=== PATIENT | female | born 1960 | race Caucasian/White ===

== ENCOUNTER 2022-12-06 14:38 | Outpatient (REF) | payer MEDICARE, MEDICAID, SELFPAY ==
--- NOTE | ~2022-12-06 | XR_ITS ---
EXAMINATION: XR HIP, LEFT XR HAND AND WRIST, BILATERAL XR FOOT, BILATERAL XR ANKLE, BILATERAL CLINICAL INFORMATION: Rheumatoid arthritis. COMPARISON: None available. TECHNIQUE: 2 views left hip, 4 views right and left hand and wrist, 3 views of right and left feet, and 2 views of right and left ankles. FINDINGS: LEFT HIP: There is no evidence of acute fracture or dislocation of the left hip. There is significant loss of left hip joint space in a concentric manner with sclerosis and subchondral cyst formation. No femoral head deformity is seen. There is prominent collar spurring present. There is spurring involving the greater trochanter. Prominent vascular calcifications are noted. Subchondral cysts are seen involving the pubic symphysis. RIGHT FOOT: There is no evidence of acute fracture or dislocation of the right foot. There appears be osteopenia present. There is mild bunion formation with joint space narrowing seen 1st metatarsophalangeal joint. There appear to be small erosions involving the heads of the 2nd through 5th metatarsals. There appear to be erosions involving the base of the 2nd metatarsal. There is some degenerative narrowing with minor spurring seen involving the tarsal navicular joint and tarsal metatarsal joints. Dorsal beaking is seen involving the tarsal bones. Prominent plantar calcaneal spur present. RIGHT ANKLE: There is osteopenia present. No acute fracture or dislocation. Ankle mortise appears intact with talar tilt of approximately 8 degrees. No definite erosive changes are appreciated. Left ankle: There is no evidence of acute fracture or dislocation of the left ankle. Left ankle mortise appears intact. LEFT FOOT: There is generalized osteopenia present. There is severe degenerative change of the 1st metatarsophalangeal joint with loss of joint space and articular irregularity and deformity. Subchondral cyst formation is evident with prominent spurring. There are some erosions seen involving the 2nd through 5th metatarsal heads. There is some degenerative change seen involving the metatarsophalangeal joints 1st through 3rd digits. Prominent plantar spur present. Dorsal beaking of the talar bone is noted. RIGHT HAND AND WRIST: There is diffuse osteopenia present most prominent in the periarticular regions but generalized. There is narrowing of the triscaphe joint with severe narrowing of the 1st and 2nd carpometacarpal joints with loss of joint space, sclerosis, subchondral cyst formation, and prominent spurring. There is deformity of the multangulars. There appear to be small erosions versus subchondral cysts involving the heads of the metacarpal bones. There is some degenerative joint space narrowing with marginal irregularity involving the 2nd metatarsophalangeal joint. There is degenerative change seen with some joint space narrowing and spurring about the distal interphalangeal joints 2nd to the largest extent. There is some mild soft tissue prominence about the first and second metacarpophalangeal joints. LEFT HAND AND WRIST: There is generalized osteopenia. There is severe degenerative change of the 1st carpometacarpal joint with loss of joint space and marginal spurring and some deformity of the multangulars. There is loss of the triscaphe joint space. No acute fracture or dislocation is evident. There is some degenerative change with joint space narrowing involving the 1st metacarpophalangeal joint. There is degenerative narrowing and sclerosis involving the 2nd distal interphalangeal joint. There are some erosions seen involving the 2nd and 5th metacarpal heads. There is degenerative change seen involving the 5th proximal interphalangeal joint. There is some mild soft tissue prominence seen about the second metacarpophalangeal joint. XR/XR ankle LT min 3V IMPRESSION: Diffuse osteopenia. Severe degenerative change of the left hip joint in a concentric fashion, as described, which is consistent with the appearance of rheumatoid arthritis rather than osteoarthritis which tends to be more focal regions of the joint space. Combination of findings of erosive and degenerative arthritides, as described.
[2022-12-06 17:06] LABS: Basophils Absolute Auto 0.1 X10*3/uL (0.0-0.2); Basophils Percent Auto 0.6 % (0-2); Eosinophils Absolute Auto 0.1 X10*3/uL (0.0-0.4); Eosinophils Percent Auto 0.9 % (0-4); Hemoglobin 14.6 g/dl (12.0-16.0); Imm Gran Abs Auto 0.03 X10*3/uL (0.00-0.03); Imm Gran Pct Auto 0.3 % (0.0-0.4); Lymphocytes Absolute Auto 2.6 X10*3/uL (1.2-4.9); Lymphocytes Percent Auto 25.9 % (20-40); MANUAL DIFF FLAG NO; Mean Corpuscular Hemoglobin 31.2 pg (27.0-33.0); Mean Corpuscular Volume 91.9 fL (80.0-98.0); Mean Platelet Volume 8.6 fL (9.4-12.3); Monocytes Absolute Auto 0.6 X10*3/uL (0.1-1.2); Monocytes Percent Auto 5.7 % (2-11); Neutrophils Absolute Auto 6.7 x10*3/uL (2.0-8.3); Neutrophils Percent Auto 66.6 % (45-73); Platelet Count 381 X10*3/uL (160-400); Red Blood Count 4.68 X10*6/uL (4.20-5.50); Red Cell Distribution Width 13.9 % (11.0-16.0)
[2022-12-06 18:05] LABS: Erythrocyte Sedimentation Rate 12 MM/HR (0-20)
[2022-12-06 18:12] LABS: Alanine Aminotransferase 15 U/L (0-31); Albumin Level 4.5 g/dL (3.5-5.0); Alkaline Phosphatase 119 U/L (39-117); Anion Gap 13 (12-20); Aspartate Amino Transferase 15 U/L (5-31); Bilirubin Total 0.4 mg/dL (0.0-1.0); Blood Urea Nitrogen 16 mg/dL (9-16); C Reactive Protein 0.32 mg/dL (< or = 0.50); Calcium 10.1 mg/dL (8.4-10.2); Carbon Dioxide 26 mmol/L (22-29); Chloride 104 mmol/L (96-108); Estimated Glomerular Filt Rate > 60; Glucose Random 103 mg/dL (60-115); Potassium 4.2 mmol/L (3.3-5.1); Rheumatoid Factor < 13.0 IU/mL (<15.0); Sodium 139 mmol/L (135-145); Total Protein 7.4 g/dL (6.5-8.0); Uric Acid 4.7 mg/dL (2.4-5.7)
[2022-12-07 07:39] LABS: HBS Num1 11.65 mIU/mL (0-7.99); HBc Num1 0.06 S/CO (0.00-0.79); Hepatitis A Antibody IgM 0.24 Index (0-0.79); Hepatitis B Core Antibody Nonreactive (Nonreactive); Hepatitis B Surface Antigen Negative (Negative); ~HepC Num1 0.08 S/CO (0.00-0.79); ~Hepatitis A Antibody IgM Nonreactive (Nonreactive); ~Hepatitis C Antibody Nonreactive (Nonreactive)
[2022-12-07 08:54] LABS: HBS Num2 12.24 mIU/mL (0-7.99); HBS Num3 12.42 mIU/mL (0-7.99); ~Hepatitis B Surface Antibody REACTIVE (Nonreactive)
[2022-12-08 11:18] LABS: TS Negative Control Passed; TS Panel A 0; TS Panel B 0; TS Positive Control Passed; TSpotTB Negative (Negative)
[2022-12-11 12:23] LABS: Cyclic Citrullinated Peptide <16 UNITS
[2022-12-14 00:38] LABS: Prot Elec - Albumin 4.6 g/dL (3.8-4.8); Prot Elec - Alpha1 0.3 g/dL (0.2-0.3); Prot Elec - Alpha2 0.9 g/dL (0.5-0.9); Prot Elec - Beta 1 0.4 g/dL (0.4-0.6); Prot Elec - Beta 2 0.3 g/dL (0.2-0.5); Prot Elec - Gamma 1.1 g/dL (0.8-1.7); Prot Elec - Total Protein 7.5 g/dL (6.1-8.1)
[2022-12-15 12:24] LABS: IgA 170 mg/dL (70-320); IgG 1127 mg/dL (600-1540); IgM 117 mg/dL (50-300)
[2022-12-18 11:19] LABS: Anti Nuclear Antibody Screen NEGATIVE (NEGATIVE)
== END 2022-12-06 14:39 | disposition home or self-care (01) ==
LOC: HO.LAB 14:38
PROVIDERS: Visit Provider Student in an Organized Health Care Education/Training Program
DX: Z11.59 Encounter for screening for other viral diseases (principal); Z11.7 Encounter for testing for latent tuberculosis infection; M25.541 Pain in joints of right hand; M06.09 Rheumatoid arthritis without rheumatoid factor, multiple sites; Z72.89 Other problems related to lifestyle
CPT/HCPCS: 36415; 73110; 73130; 73502; 73610; 73630; 80053; 82784; 84165; 84550; 85025; 85652; 86038; 86140; 86200; 86334; 86431; 86481; 86704; 86706; 86709; 86803; 87340; 99202

== ENCOUNTER 2023-02-23 16:07 | Outpatient (AMB) | payer MEDICARE, MEDICAID, SELFPAY ==
[2023-02-23 16:10] VITALS: BP 132/80; PULSE 106; TEMP 36.6; O2SAT 96; BMI 33.9
--- NOTE | 2023-02-23 16:10 | MHC.OFFVIS ---
Intake Vital Signs 02/23/23 16:10 Height 5 ft Weight 173 lb 11.588 oz BMI 33.9 BP 132/80 Blood Pressure Location Rt brachial Position Sitting Pulse 106 H Pulse Source Pulse Oximeter Temp 97.8 F Temp Source Skin Pulse Oximetry (%) 96 Intake Visit Reasons: RA Intake Note: Pt seen today for RA follow up. 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 Accompanied by: Self / Same As Patient Allergies ciprofloxacin [From Cipro] Adverse Reaction (Unknown, Verified 02/23/23 16:17) Rash hydroxychloroquine Adverse Reaction (Unknown, Verified 02/23/23 16:17) Rash Medication List - Last Reconciled 02/23/23 by Fernando Hernandez MD amlodipine 10 mg PO DAILY chlorthalidone 12.5 mg PO QAM diclofenac sodium 1% 1 ea topical QID epinephrine 0.3 mL IM ONCE PRN fluticasone propionate 50 mcg/actuation sprays intranasal folic acid 1 mg PO DAILY lisinopril 40 mg PO DAILY methotrexate sodium Take 6 tabs by mouth once weekly for 2 weeks then 8 tabs once weekly HPI HPI Comments History of Present Illness Details Patient returns for follow-up after completion of her blood work and x-rays. States that she does not have any swollen joints today. States that her left hip is what is holding her back the most. 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 Patient stated that since 2004 she has had right hip pain. She ultimately had a right hip replacement 2008. Over the years patient has had intermittent joint pain and swelling including elbow, hands, knuckles, wrists, ankles, feet, left hip. She states that is her most bothersome pain at this point is left hip pain and stiffness. The pain and stiffness last all day. Also last week she had swelling of her left elbow that lasted about a month then self-resolved. She also had pain and swelling of her hands and knuckles that lasted a few days then self-resolved. Patient takes acetaminophen which provides little relief. She is unaware of any family history of autoimmune rheumatic disease. There is no history of DVT/PE. 2-3 years ago patient was evaluated by hair weaver Dr. Dee drake and was started on hydroxychloroquine. Patient took it for 2 weeks but developed severe hives and stopped it [facility] Medical History (Updated 02/23/23 @ 16:53 by Fernando Hernandez MD) Diverticular disease Essential hypertension Fibromyalgia GERD (gastroesophageal reflux disease) Hyperlipidemia Osteoarthritis Prediabetes Surgical History History of surgery on lower extremity Status post total hip replacement, right Family History Mother Myocardial infarction Hypertension Stroke Brother Emphysema lung Father Heart disease S/P CABG x 3 Arthritis Brother Heart disease Social History Alcohol intake: current Alcohol intake frequency: does not drink Patient Tobacco Use Status: Current someday Tobacco user Substance Use Type: Marijuana Current occupational status: retired 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 Review of Systems Eyes Reports dry eyes, Reports itchy eyes and Reports eye pain ENT Reports dry mouth and Reports hoarseness Musc Reports arthralgias and Reports stiffness Aller/Immun Reports itchy eyes Physical Exam Vital Signs: Last Vital Signs Temp 97.8 F 02/23/23 16:10 Pulse 106 H 02/23/23 16:10 BP 132/80 02/23/23 16:10 Pulse Ox 96 02/23/23 16:10 BMI result Body Mass Index 33.9 Const General: cooperative, healthy appearing and comfortable Nutritional Appearance: obese Orientation/consciousness: patient oriented x3 Limitations: no limitations HEENT Head: Yes normocephalic and Yes atraumatic Face and sinus: Yes dry mucous membranes Resp Effort & Inspection: normal respiratory effort and able to speak in complete sentences Cardio Rate: regular rate GI Inspection: No distended Palpation (GI): Soft to palpation and nontender Neuro General: patient oriented x3 Extrem Other: Osteoarthritic changes of both hands with Heberden's and Jewels's nodes Bilateral 1st CMC joint squaring No swollen or tender joints today in both hands today Bilateral 1st CMC joint tenderness Some subluxation of left 1st CMC joint Normal nailfold capillaroscopy Bilateral elbow pain with full extension Normal range of motion of both shoulders Left hip pain with flexion adduction and internal rotation Bilateral knee pain with full flexion No swollen or tender MTPs bilaterally Results Reviewed Results Reviewed: [address] [address] XRay Report Signed Patient: Angeline Wilks MR#: [id number] : 1960 Acct:[id number] Age/Sex: 62 / F ADM Date: 12/06/22 Loc: HO.LAB Attending Dr: Fernando Hernandez MD Ordering Physician: Fernando Hernandez MD Date of Service: 12/06/22 Procedure(s): XR hip LT min 2V Accession Number(s): [id number] cc: Fernando Hernandez MD~ EXAMINATION: XR HIP, LEFT XR HAND AND WRIST, BILATERAL XR FOOT, BILATERAL XR ANKLE, BILATERAL CLINICAL INFORMATION: Rheumatoid arthritis. COMPARISON: None available. TECHNIQUE: 2 views left hip, 4 views right and left hand and wrist, 3 views of right and left feet, and 2 views of right and left ankles. FINDINGS: LEFT HIP: There is no evidence of acute fracture or dislocation of the left hip. There is significant loss of left hip joint space in a concentric manner with sclerosis and subchondral cyst formation. No femoral head deformity is seen. There is prominent collar spurring present. There is spurring involving the greater trochanter. Prominent vascular calcifications are noted. Subchondral cysts are seen involving the pubic symphysis. RIGHT FOOT: There is no evidence of acute fracture or dislocation of the right foot. There appears be osteopenia present. There is mild bunion formation with joint space narrowing seen 1st metatarsophalangeal joint. There appear to be small erosions involving the heads of the 2nd through 5th metatarsals. There appear to be erosions involving the base of the 2nd metatarsal. There is some degenerative narrowing with minor spurring seen involving the tarsal navicular joint and tarsal metatarsal joints. Dorsal beaking is seen involving the tarsal bones. Prominent plantar calcaneal spur present. RIGHT ANKLE: There is osteopenia present. No acute fracture or dislocation. Ankle mortise appears intact with talar tilt of approximately 8 degrees. No definite erosive changes are appreciated. Left ankle: There is no evidence of acute fracture or dislocation of the left ankle. Left ankle mortise appears intact. LEFT FOOT: There is generalized osteopenia present. There is severe degenerative change of the 1st metatarsophalangeal joint with loss of joint space and articular irregularity and deformity. Subchondral cyst formation is evident with prominent spurring. There are some erosions seen involving the 2nd through 5th metatarsal heads. There is some degenerative change seen involving the metatarsophalangeal joints 1st through 3rd digits. Prominent plantar spur present. Dorsal beaking of the talar bone is noted. RIGHT HAND AND WRIST: There is diffuse osteopenia present most prominent in the periarticular regions but generalized. There is narrowing of the triscaphe joint with severe narrowing of the 1st and 2nd carpometacarpal joints with loss of joint space, sclerosis, subchondral cyst formation, and prominent spurring. There is deformity of the multangulars. There appear to be small erosions versus subchondral cysts involving the heads of the metacarpal bones. There is some degenerative joint space narrowing with marginal irregularity involving the 2nd metatarsophalangeal joint. There is degenerative change seen with some joint space narrowing and spurring about the distal interphalangeal joints 2nd to the largest extent. There is some mild soft tissue prominence about the first and second metacarpophalangeal joints. LEFT HAND AND WRIST: There is generalized osteopenia. There is severe degenerative change of the 1st carpometacarpal joint with loss of joint space and marginal spurring and some deformity of the multangulars. There is loss of the triscaphe joint space. No acute fracture or dislocation is evident. There is some degenerative change with joint space narrowing involving the 1st metacarpophalangeal joint. There is degenerative narrowing and sclerosis involving the 2nd distal interphalangeal joint. There are some erosions seen involving the 2nd and 5th metacarpal heads. There is degenerative change seen involving the 5th proximal interphalangeal joint. There is some mild soft tissue prominence seen about the second metacarpophalangeal joint. XR/XR hip LT min 2V IMPRESSION: Diffuse osteopenia. ? Severe degenerative change of the left hip joint in a concentric fashion, as described, which is consistent with the appearance of rheumatoid arthritis rather than osteoarthritis which tends to be more focal regions of the joint space. ? Combination of findings of erosive and degenerative arthritides, as described. Assessment & Plan Assessment & Plan (1) Seronegative rheumatoid arthritis: Code(s): M06.00 - Rheumatoid arthritis without rheumatoid factor, unspecified site Plan: This is a 62-year-old female who presents for evaluation of multiple joint pain.? Last visit patient had a few swollen and tender joints.? Her radiographs show significant degenerative changes and some findings suggestive of an inflammatory arthropathy.? Patient was diagnosed with seronegative rheumatoid arthritis a few years ago by Dr. Buitrago and was started on hydroxychloroquine but patient had the allergic reaction to it. Will need to start DMARDs.? Discussed risks and benefits of methotrexate.? Patient agreed to proceed.? Start methotrexate 15 mg once weekly for 2 weeks then 8 tabs once weekly plus folic acid 1 mg daily Labs before next visit in 2 months Infectious screening :? Hepatitis panel and T spot -ve 2022 (2) Osteopenia: Code(s): M85.80 - Other specified disorders of bone density and structure, unspecified site Plan: X-rays showing diffuse osteopenia. Patient is 62 years old and states that she has lost around 3.5 inches of height over her lifetime. Ordered a DEXA scan to screen for osteoporosis (3) Osteoarthritis of left hip: Code(s): M16.12 - Unilateral primary osteoarthritis, left hip Qualifiers: Osteoarthritis type: other secondary Qualified Code(s): M16.7 - Other unilateral secondary osteoarthritis of hip Plan: Referred to Orthopedics to evaluate for possible hip replacement Plan I spent 26 minutes reviewing patient's chart, evaluating patient, ordering diagnostic workup, counseling patient and documenting in the chart Orders: Orders Complete Blood Count Auto Diff 2 Months M06.9 - Rheumatoid arthritis, unspecified Comprehensive Met. Panel 2 Months M06.9 - Rheumatoid arthritis, unspecified C Reactive Protein 2 Months M06.9 - Rheumatoid arthritis, unspecified Erythrocyte Sedimentation Rate 2 Months M06.9 - Rheumatoid arthritis, unspecified XR DEXA axial skeleton Today M16.12 - Unilateral primary osteoarthritis, left hip Referrals Orthopedics Referral M16.12 - Unilateral primary osteoarthritis, left hip Medications: New methotrexate sodium Take 6 tabs by mouth once weekly for 2 weeks then 8 tabs once weekly 64 tabs 0RF folic acid 1 mg PO DAILY 90 tabs 1RF Coding Level of Care Code Est Pt Level 4 (32302) Diagnoses Seronegative rheumatoid arthritis M06.00 Osteopenia M85.80 Osteoarthritis of left hip M16.7 Osteoarthritis type: other secondary
== END 2023-02-23 16:41 | disposition home or self-care (01) ==
PROVIDERS: PCP Nurse Practitioner Family; Visit Provider Student in an Organized Health Care Education/Training Program
DX: M06.00 Rheumatoid arthritis without rheumatoid factor, unspecified site (principal); M85.80 Other specified disorders of bone density and structure, unspecified site; M16.7 Other unilateral secondary osteoarthritis of hip
CPT/HCPCS: 99214

== ENCOUNTER → 2023-02-23 16:07 | Outpatient (BNVA) | payer MEDICARE, MEDICAID, SELFPAY | PROVIDERS: Visit Provider Student in an Organized Health Care Education/Training Program | DX: M06.00 Rheumatoid arthritis without rheumatoid factor, unspecified site (principal); M85.80 Other specified disorders of bone density and structure, unspecified site; M16.7 Other unilateral secondary osteoarthritis of hip | CPT/HCPCS: 99212 ==

== ENCOUNTER 2023-03-01 09:58 | Outpatient (AMB) | payer MEDICARE, MEDICAID, SELFPAY ==
--- NOTE | 2023-03-01 10:00 | A.OFFVIS_ITS ---
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 Patient reports ongoing pain for 3 years. Hx of right hip replacement 2008. She reports minimal discomfort in her right hip. She describes her left hip pain as sharp and severe in nature, 10/10. Her left hip pain has gotten worse over the last few years in spite of continued non operative treatments. She has done physical therapy for 12 weeks over the last 6 months which aggravated her pain. She has also tried Tylenol and and anti- inflammatory medicines which gave her minimal relief. The patient has difficulty walking even short distances because of her pain. At this point her left hip pain is interfering with her activities of daily living and her ability to sleep well through the night. Allergies ciprofloxacin [From Cipro] Adverse Reaction (Unknown, Verified 03/01/23 10:04) Rash hydroxychloroquine Adverse Reaction (Unknown, Verified 03/01/23 10:04) Rash PFSH Medical History Diverticular disease Essential hypertension Fibromyalgia GERD (gastroesophageal reflux disease) Hyperlipidemia Osteoarthritis Prediabetes Surgical History History of surgery on lower extremity Status post total hip replacement, right Family History Mother Myocardial infarction Hypertension Stroke Brother Emphysema lung Father Heart disease S/P CABG x 3 Arthritis Brother Heart disease Social History Alcohol intake: current Alcohol intake frequency: does not drink Patient Tobacco Use Status: Current someday Tobacco user Substance Use Type: Marijuana Current occupational status: retired 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 Physical Exam Const Other: Well-nourished well-developed very friendly female awake alert and oriented x3 in no acute distress Extrem Other: Bilateral lower extremity examination shows good capillary refill, no skin lesions noted, normal sensation light touch Left hip examination shows decreased range of motion when compared to her right hip, pain with range of motion, no tenderness over bursa Results Reviewed Results Reviewed: X-rays of the patient's left hip show severe joint space narrowing with grade 4 [id number] arthritis, subchondral sclerosis, osteophyte formation, no acute bony abnormalities Assessment & Plan Assessment & Plan (1) Osteoarthritis of left hip: Code(s): M16.12 - Unilateral primary osteoarthritis, left hip Qualifiers: Osteoarthritis type: other secondary Qualified Code(s): M16.7 - Other unilateral secondary osteoarthritis of hip Plan: Ms. Wilks presents with progressively worsening left hip pain due to end-stage degenerative joint disease. I had a lengthy discussion with the patient regarding the treatment options. At this point she has failed continued non operative treatments. The risks and benefits of left total hip replacement surgery were discussed at length with the patient. We had a discussion regarding implant in bearing options. We had a detailed discussion of the advantages and limitations of the specific implant designs, materials and bearing surfaces. All questions were answered to the patient's satisfaction. The patient wishes to proceed with surgery. Because the patient's symptoms are severe and intractable we will schedule surgery for as soon as possible. Coronavirus precautions will be taken. The patient will contact my office to pick a surgery date. She will follow-up as instructed. Feel free to call me at any time should questions regarding her orthopedic management arise. I spent 23 minutes in reviewing the patient's records and imaging studies, seeing the patient and documenting in the medical record. Orders: Orders XR pelvis 1-2V Today M16.12 - Unilateral primary osteoarthritis, left hip Coding Level of Care Code New Pt Level 2 (23563) Diagnoses Osteoarthritis of left hip M16.7 Osteoarthritis type: other secondary
== END 2023-03-01 10:39 | disposition home or self-care (01) ==
PROVIDERS: PCP Internal Medicine; Visit Provider Orthopaedic Surgery
DX: M16.7 Other unilateral secondary osteoarthritis of hip (principal)
CPT/HCPCS: 99202

== ENCOUNTER 2023-03-01 09:58 | Outpatient (REF) | payer MEDICARE, MEDICAID, SELFPAY ==
--- NOTE | ~2023-03-01 | XR_ITS ---
EXAMINATION: XR PELVIS CLINICAL INFORMATION: Unilateral primary osteoarthritis, left hip COMPARISON: 12/06/2022. TECHNIQUE: AP view of the pelvis. FINDINGS: No evidence for acute fracture or dislocation. The acetabular and pubic margins are intact. A right hip prosthesis is in position without any distinct complication. There is severe joint space narrowing of the left hip with subchondral sclerosis and spurring. Spurring change of the inferomedial left femoral head as well as the greater trochanteric regions again observed. There appears to be stable osseous alignment since the previous evaluation. Sacrum is intact. There appear to be subchondral cysts at the pubic symphysis, unchanged. XR/XR pelvis 1-2V IMPRESSION: 1. Degenerative changes of the left hip as noted above. 2. Right hip prosthesis in position. 3. No acute fracture or dislocation.
== END 2023-03-01 09:59 | disposition home or self-care (01) ==
LOC: HO.HOSX 09:58
PROVIDERS: Visit Provider Orthopaedic Surgery
DX: M16.12 Unilateral primary osteoarthritis, left hip (principal)
CPT/HCPCS: 72170; 99202

== ENCOUNTER 2023-03-17 10:51 | Outpatient (REF) | payer MEDICARE, MEDICAID, SELFPAY ==
--- NOTE | ~2023-03-17 | MM_ITS ---
EXAMINATION: BONE DENSITOMETRY CLINICAL INDICATION: Unilateral primary osteoarthritis, left hip. COMPARISON: This is the patient's baseline examination. TECHNIQUE: Using a [employer] DXA System (software version: 13.1) manufactured by [employer], dual-energy x-ray absorptiometry was performed of the lumbar spine and left hip. The images are of good technical quality. Summary results are attached. FINDINGS: AP SPINE L1-L4: BMD 1.128 g/cm2, Z-score 0.7, T-score -0.4, normal. LEFT FEMUR, NECK: BMD 0.710 g/cm2, Z-score -1.2, T-score -2.4, osteopenia. LEFT FEMUR, TOTAL: BMD 0.749 g/cm2, Z-score -1.2, T-score -2.1, osteopenia. IDENTIFIED RISK FACTORS: Height loss. Menopause. HISTORY OF FRACTURE: None listed. MEDICATIONS: Vitamin D. MM/XR DEXA axial skeleton IMPRESSION: 1. DIAGNOSIS: Osteopenia based on the lowest T-score value of -2.4 in the femoral neck applying World Health Organization criteria. 2. 10-YEAR FRACTURE RISK PREDICTION, FRAX: Major osteoporotic fracture (clinical spine, forearm, hip or shoulder) 11.6%. Hip fracture 2.1%. 3. Treatment Recommendations: NOF guidelines recommend consideration for treatment in postmenopausal women and men age 50 and older presenting with the following: -A hip or vertebral (clinical or morphometric) fracture. -T-score less than or equal to -2.5 at the femoral neck or spine after appropriate evaluation to exclude secondary causes. -Low bone mass at the hip or spine and a 10-year fracture probability by FRAX of greater than or equal to 3% for hip fracture or greater than or equal to 20% for major osteoporotic fracture based on the [place] adapted WHO algorithm. 4. Other Recommendations: All treatment decisions require clinical judgment and consideration of individual patient factors, including patient preferences, comorbidities, previous drug use, risk factors not captured in the FRAX model (e.g. frailty, falls, vitamin D deficiency, increased bone turnover, interval significant decline in bone density) and possible under or overestimation of fracture risk by FRAX. Additional medical evaluation for secondary cause of low bone mineral density may be appropriate. FUTURE SCAN RECOMMENDATION: People with diagnosed cases of osteoporosis or at high risk for fracture should have regular bone mineral density tests. For patients eligible for Medicare, routine testing is allowed once every 2 years. The testing frequency can be increased to one year for patients who have rapidly progressing disease, those who are receiving or discontinuing medical therapy to restore bone mass, or have additional risk factors.
== END 2023-03-17 10:52 | disposition home or self-care (01) ==
LOC: HO.MAMMO 10:51
PROVIDERS: PCP Internal Medicine; Visit Provider Student in an Organized Health Care Education/Training Program
DX: Z13.820 Encounter for screening for osteoporosis (principal); M85.80 Other specified disorders of bone density and structure, unspecified site; Z78.0 Asymptomatic menopausal state
CPT/HCPCS: 77080

== ENCOUNTER → 2023-03-17 11:00 | Outpatient (BNV) | payer MEDICARE, MEDICAID, SELFPAY | PROVIDERS: PCP Internal Medicine; Visit Provider Radiology Diagnostic Radiology | DX: M85.89 Other specified disorders of bone density and structure, multiple sites (principal) | CPT/HCPCS: 77080 ==

== ENCOUNTER → 2023-05-03 13:16 | Outpatient (BNVA) | payer MEDICARE, MEDICAID, SELFPAY | PROVIDERS: PCP Internal Medicine; Visit Provider Orthopaedic Surgery ==

== ENCOUNTER 2023-05-04 11:35 | Outpatient (AMB) | payer MEDICARE, MEDICAID, SELFPAY ==
[2023-05-04 11:36] VITALS: BP 114/68; PULSE 93; TEMP 36.3; O2SAT 95; BMI 34.3
--- NOTE | 2023-05-04 11:36 | MHC.OFFVIS ---
Intake Vital Signs 05/04/23 11:36 Height 5 ft Weight 175 lb 7.807 oz BMI 34.3 BP 114/68 Blood Pressure Location Rt brachial Position Sitting Pulse 93 Pulse Source Pulse Oximeter Temp 97.3 F Temp Source Skin Pulse Oximetry (%) 95 Intake Visit Reasons: RA Intake Note: Pt seen today for RA follow up and test results. She did not do labs. States joint pain is about the same since stopping MTX. She saw Ortho Dr Moncada- left total hip replacement surgery discussed, pt agreed. Surgery scheduled 06/05/23. Director Pharmacology Required: No Accompanied by: Self / Same As Patient Allergies ciprofloxacin [From Cipro] Adverse Reaction (Unknown, Verified 05/04/23 11:43) Rash hydroxychloroquine Adverse Reaction (Unknown, Verified 05/04/23 11:43) Rash methotrexate Adverse Reaction (Unverified 05/04/23 12:12) fatigue Medication List - Last Reconciled 05/04/23 by Fernando Hernandez MD amlodipine 10 mg PO DAILY atorvastatin 20 mg PO DAILY chlorthalidone 12.5 mg PO QAM diclofenac sodium 1% 1 ea topical QID epinephrine 0.3 mL IM ONCE PRN fluticasone propionate 50 mcg/actuation sprays intranasal lisinopril 40 mg PO DAILY HPI HPI Comments History of Present Illness Details 62-year-old female with seronegative RA returns for follow-up. Patient took methotrexate for 2 weeks but stopped due to fatigue and hives. She is scheduled for left hip replacement a month from today. She is having left hip pain, is constant. But she gets intermittent pain and swelling of her hands, elbows, knees, feet. States that it happens about half the time. Morning stiffness lasting 1 hour. 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 Patient stated that since 2004 she has had right hip pain. She ultimately had a right hip replacement 2008. Over the years patient has had intermittent joint pain and swelling including elbow, hands, knuckles, wrists, ankles, feet, left hip. She states that is her most bothersome pain at this point is left hip pain and stiffness. The pain and stiffness last all day. Also last week she had swelling of her left elbow that lasted about a month then self-resolved. She also had pain and swelling of her hands and knuckles that lasted a few days then self-resolved. Patient takes acetaminophen which provides little relief. She is unaware of any family history of autoimmune rheumatic disease. There is no history of DVT/PE. 2-3 years ago patient was evaluated by auto mechanic Dr. Dee drake and was started on hydroxychloroquine. Patient took it for 2 weeks but developed severe hives and stopped it PFSH Medical History Diverticular disease Essential hypertension Osteoarthritis GERD (gastroesophageal reflux disease) Fibromyalgia Prediabetes Hyperlipidemia Surgical History History of surgery on lower extremity Status post total hip replacement, right Family History Mother Myocardial infarction Hypertension Stroke Brother Emphysema lung Father Heart disease S/P CABG x 3 Arthritis Brother Heart disease Social History Alcohol intake: current Alcohol intake frequency: does not drink Patient Tobacco Use Status: Current someday Tobacco user Substance Use Type: Marijuana Current occupational status: retired 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 Female Reproductive History Menstrual Total pregnancies: 5 Number of Living Children: 2 Ab induced: 2 Ab spontaneous: 1 Review of Systems Musc Reports arthralgias, Reports joint swelling and Reports stiffness Physical Exam Vital Signs: Last Vital Signs Temp 97.3 F 05/04/23 11:36 Pulse 93 05/04/23 11:36 BP 114/68 05/04/23 11:36 Pulse Ox 95 05/04/23 11:36 BMI result Body Mass Index 34.3 Const General: cooperative, healthy appearing and comfortable Nutritional Appearance: obese Orientation/consciousness: patient oriented x3 Limitations: no limitations HEENT Head: Yes normocephalic and Yes atraumatic Face and sinus: Yes dry mucous membranes Resp Effort & Inspection: normal respiratory effort and able to speak in complete sentences GI Inspection: No distended Palpation (GI): Soft to palpation and nontender Neuro General: patient oriented x3 Extrem Other: Osteoarthritic changes of both hands with Heberden's and Jewels's nodes Bilateral 1st CMC joint squaring No swollen or tender joints today in both hands today Bilateral 1st CMC joint tenderness Some subluxation of left 1st CMC joint Normal nailfold capillaroscopy Tenderness upon palpation of the common extensor origin of the lateral epicondyle Normal range of motion of both shoulders Left hip pain with flexion adduction and internal rotation Bilateral knee pain with full flexion Bilateral bunion Right 1st MTP tenderness Negative MTP squeeze test bilaterally Results Reviewed Results Reviewed: [facility] [address] [place] [id number] XRay Report Signed Patient: Angeline Wilks MR#: [id number] : 1960 Acct:[id number] Age/Sex: 62 / F ADM Date: 12/06/22 Loc: HO.LAB Attending Dr: Fernando Hernandez MD Ordering Physician: Fernando Hernandez MD Date of Service: 12/06/22 Procedure(s): XR hip LT min 2V Accession Number(s): [id number] cc: Fernando Hernandez MD~ EXAMINATION: XR HIP, LEFT XR HAND AND WRIST, BILATERAL XR FOOT, BILATERAL XR ANKLE, BILATERAL CLINICAL INFORMATION: Rheumatoid arthritis. COMPARISON: None available. TECHNIQUE: 2 views left hip, 4 views right and left hand and wrist, 3 views of right and left feet, and 2 views of right and left ankles. FINDINGS: LEFT HIP: There is no evidence of acute fracture or dislocation of the left hip. There is significant loss of left hip joint space in a concentric manner with sclerosis and subchondral cyst formation. No femoral head deformity is seen. There is prominent collar spurring present. There is spurring involving the greater trochanter. Prominent vascular calcifications are noted. Subchondral cysts are seen involving the pubic symphysis. RIGHT FOOT: There is no evidence of acute fracture or dislocation of the right foot. There appears be osteopenia present. There is mild bunion formation with joint space narrowing seen 1st metatarsophalangeal joint. There appear to be small erosions involving the heads of the 2nd through 5th metatarsals. There appear to be erosions involving the base of the 2nd metatarsal. There is some degenerative narrowing with minor spurring seen involving the tarsal navicular joint and tarsal metatarsal joints. Dorsal beaking is seen involving the tarsal bones. Prominent plantar calcaneal spur present. RIGHT ANKLE: There is osteopenia present. No acute fracture or dislocation. Ankle mortise appears intact with talar tilt of approximately 8 degrees. No definite erosive changes are appreciated. Left ankle: There is no evidence of acute fracture or dislocation of the left ankle. Left ankle mortise appears intact. LEFT FOOT: There is generalized osteopenia present. There is severe degenerative change of the 1st metatarsophalangeal joint with loss of joint space and articular irregularity and deformity. Subchondral cyst formation is evident with prominent spurring. There are some erosions seen involving the 2nd through 5th metatarsal heads. There is some degenerative change seen involving the metatarsophalangeal joints 1st through 3rd digits. Prominent plantar spur present. Dorsal beaking of the talar bone is noted. RIGHT HAND AND WRIST: There is diffuse osteopenia present most prominent in the periarticular regions but generalized. There is narrowing of the triscaphe joint with severe narrowing of the 1st and 2nd carpometacarpal joints with loss of joint space, sclerosis, subchondral cyst formation, and prominent spurring. There is deformity of the multangulars. There appear to be small erosions versus subchondral cysts involving the heads of the metacarpal bones. There is some degenerative joint space narrowing with marginal irregularity involving the 2nd metatarsophalangeal joint. There is degenerative change seen with some joint space narrowing and spurring about the distal interphalangeal joints 2nd to the largest extent. There is some mild soft tissue prominence about the first and second metacarpophalangeal joints. LEFT HAND AND WRIST: There is generalized osteopenia. There is severe degenerative change of the 1st carpometacarpal joint with loss of joint space and marginal spurring and some deformity of the multangulars. There is loss of the triscaphe joint space. No acute fracture or dislocation is evident. There is some degenerative change with joint space narrowing involving the 1st metacarpophalangeal joint. There is degenerative narrowing and sclerosis involving the 2nd distal interphalangeal joint. There are some erosions seen involving the 2nd and 5th metacarpal heads. There is degenerative change seen involving the 5th proximal interphalangeal joint. There is some mild soft tissue prominence seen about the second metacarpophalangeal joint. XR/XR hip LT min 2V IMPRESSION: Diffuse osteopenia. ? Severe degenerative change of the left hip joint in a concentric fashion, as described, which is consistent with the appearance of rheumatoid arthritis rather than osteoarthritis which tends to be more focal regions of the joint space. ? Combination of findings of erosive and degenerative arthritides, as described. Assessment & Plan Assessment & Plan (1) Seronegative rheumatoid arthritis: Comment: -ve RF-ve CCP HCQ years ago DC due to allergic reaction MTX 02/2023 DC due to fatigue & hives Code(s): M06.00 - Rheumatoid arthritis without rheumatoid factor, unspecified site Plan: This is a 62-year-old female with seronegative RA who presents for follow-up. Patient took methotrexate for 2 weeks and could not tolerate it due to fatigue and hives. Patient continues to get intermittent swollen joints, morning stiffness. Continues to have active disease. Will need to switch DMARDs. Discussed risks and benefits of TNF inhibitors. Patient agreed to proceed. Will start prior authorization for Enbrel Patient to start Enbrel after her hip replacement Follow-up in 3 months (2) Osteopenia: Code(s): M85.80 - Other specified disorders of bone density and structure, unspecified site Plan: DEXA 02/2023 showed osteopenia with a low FRAX score. But I do not believe smoking and rheumatoid arthritis were taken into consideration. If smoking and rheumatoid arthritis are added to her risk factors her FRAX score would qualify her for anti resorptive therapy. Will discuss further next visit (3) Osteoarthritis of left hip: Code(s): M16.12 - Unilateral primary osteoarthritis, left hip Qualifiers: Osteoarthritis type: other secondary Qualified Code(s): M16.7 - Other unilateral secondary osteoarthritis of hip Plan: Planned for left hip replacement 1 in 1 month Plan I spent 26 minutes reviewing patient's chart, evaluating patient, counseling patient and documenting in the chart Coding Level of Care Code Est Pt Level 4 (12922) Diagnoses Seronegative rheumatoid arthritis M06.00 Osteopenia M85.80 Other secondary osteoarthritis of left hip M16.7 Osteoarthritis type: other secondary
== END 2023-05-04 12:11 | disposition home or self-care (01) ==
PROVIDERS: Visit Provider Student in an Organized Health Care Education/Training Program
DX: M06.00 Rheumatoid arthritis without rheumatoid factor, unspecified site (principal); M85.80 Other specified disorders of bone density and structure, unspecified site; M16.7 Other unilateral secondary osteoarthritis of hip
CPT/HCPCS: 99214

== ENCOUNTER → 2023-05-04 11:35 | Outpatient (BNVA) | payer MEDICARE, MEDICAID, SELFPAY | PROVIDERS: Visit Provider Student in an Organized Health Care Education/Training Program | DX: M06.00 Rheumatoid arthritis without rheumatoid factor, unspecified site (principal); M85.80 Other specified disorders of bone density and structure, unspecified site; M16.7 Other unilateral secondary osteoarthritis of hip | CPT/HCPCS: 99212 ==

== ENCOUNTER 2023-05-31 10:05 | Outpatient (AMB) | payer MEDICARE, MEDICAID, SELFPAY ==
--- NOTE | 2023-05-31 10:08 | MHC.OFFVIS ---
Intake Vital Signs 05/31/23 10:12 Height 5 ft Weight 175 lb BMI 34.2 Intake Visit Reasons: Preop LT INGRID 06/05/23 Intake Note: Angeline is a 62 year old female who presents today as a new patient for a evaluation for her left hip pain. Patient reports ongoing pain for 3 years. Hx of right hip replacement 2008. She reports minimal discomfort in her right hip. She describes her left hip pain as sharp and severe in nature, 05/02. Her left hip pain has gotten worse over the last few years in spite of continued non operative treatments. She has done physical therapy for 12 weeks over the last 6 months which aggravated her pain. She has also tried Tylenol and and anti-inflammatory medicines which gave her minimal relief. The patient has difficulty walking even short distances because of her pain. At this point her left hip pain is interfering with her activities of daily living and her ability to sleep well through the night. Allergies bee pollen [bee stings] Allergy (Severe, Verified 05/31/23 10:11) Anaphylaxis-bee and wasp stings ciprofloxacin [From Cipro] Allergy (Severe, Verified 05/31/23 10:11) Rash, hives crab Allergy (Severe, Verified 05/31/23 10:11) Hives, itching, swelling hydroxychloroquine Allergy (Severe, Verified 05/31/23 10:11) Hives, itching lobster Allergy (Severe, Verified 05/31/23 10:11) Hives, itching, swelling methotrexate Allergy (Severe, Verified 05/31/23 10:11) fatigue, hives, GI upset Medication List - Last Reconciled 05/31/23 by Alcon Moncada MD acetaminophen 1,000 mg PO Q6H PRN amlodipine 10 mg PO DAILY ascorbic zyhj-gdaotmfl-lqk 1,000 mg (Emergen-C) ea PO atorvastatin 20 mg PO DAILY chlorthalidone 12.5 mg PO QAM cholecalciferol (vitamin D3) (Vitamin D3) 50 mcg PO DAILY diclofenac sodium 1% 1 ea topical QID PRN Enbrel SureClick (etanercept) 50 mg subcut QWEEK NS epinephrine 0.3 mL IM ONCE PRN fluticasone propionate 50 mcg/actuation 1 spray intranasal DAILY PRN folic acid 1 mg PO DAILY Humira(CF) Pen (adalimumab) inject one - 40 mg/0.4 mL pen every 2 weeks subcut NS lisinopril 40 mg PO DAILY walker Folding front wheeled walker [facility] Medical History (Updated 05/26/23 @ 09:29 by Mary Resendez, RN) Hx of Diverticular disease Essential hypertension Osteoarthritis GERD (gastroesophageal reflux disease) Fibromyalgia Prediabetes Hyperlipidemia Surgical History (Updated 05/26/23 @ 09:29 by Mary Resendez, RANDY) Hx of colonoscopy History of surgery on lower extremity Status post total hip replacement, right Family History Mother Myocardial infarction Hypertension Stroke Brother Emphysema lung Father Heart disease S/P CABG x 3 Arthritis Brother Heart disease Social History Household Members: Significant Other Housing: Apartment Are you a primary care analyst to a significant other at home: No Do you presently have visiting nurse or other home services: No Alcohol intake: current Alcohol intake frequency: does not drink Patient Tobacco Use Status: Former Tobacco user Quit Date: 05/07/2023 Tobacco use type: Cigarette Years Smoked: 50 Second Hand Smoke Exposure: No Substance Use Type: Marijuana Current occupational status: retired 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 Physical Exam Vital Signs: BMI result Body Mass Index 34.2 Const Other: Well-nourished well-developed very friendly female awake alert and oriented x3 in no acute distress Lungs - clear to auscultation bilaterally with symmetric expansion Cardiovascular exam - regular rate and rhythm Abdominal exam - soft nontender nondistended Extrem Other: Bilateral lower extremity examination shows good capillary refill, no skin lesions noted, normal sensation light touch Left hip examination shows decreased range of motion when compared to her right hip, pain with range of motion, no tenderness over her bursa Results Reviewed Results Reviewed: X-rays of the patient's left hip show end-stage degenerative joint disease with grade 4 [id number]-[id number] arthritis, subchondral sclerosis, osteophyte formation, no acute bony abnormalities Assessment & Plan Assessment & Plan (1) Osteoarthritis of left hip: Code(s): M16.12 - Unilateral primary osteoarthritis, left hip Qualifiers: Osteoarthritis type: other secondary Qualified Code(s): M16.7 - Other unilateral secondary osteoarthritis of hip Plan Ms. Wilks presents with progressively worsening left hip pain due to end-stage degenerative joint disease. I had a lengthy discussion with the patient regarding the treatment options. At this point she has failed continued non operative treatments. The risks and benefits of left total hip replacement surgery were discussed at length with the patient. The patient wishes to proceed. coordinator of library services will be consulted following her surgery for home physical therapy and nursing. I will see the patient back 2-3 weeks following her surgery for her 1st postoperative appointment. The patient will follow-up as instructed. Feel free to call me at any time should questions regarding her orthopedic management arise. I spent 22 minutes in reviewing the patient's records and imaging studies, seeing the patient and documenting in the medical record. Coding Level of Care Code Est Pt Level 2 (64743) Diagnoses Other secondary osteoarthritis of left hip M16.7 Osteoarthritis type: other secondary
[2023-05-31 10:12] VITALS: BMI 34.2
== END 2023-05-31 10:35 | disposition home or self-care (01) ==
PROVIDERS: PCP Internal Medicine; Visit Provider Orthopaedic Surgery
DX: M16.7 Other unilateral secondary osteoarthritis of hip (principal)
CPT/HCPCS: 99212

== ENCOUNTER → 2023-05-31 10:05 | Outpatient (BNVA) | payer MEDICARE, MEDICAID, SELFPAY | PROVIDERS: PCP Internal Medicine; Visit Provider Orthopaedic Surgery | DX: Z01.818 Encounter for other preprocedural examination (principal); M16.7 Other unilateral secondary osteoarthritis of hip | CPT/HCPCS: 99212 ==

== ENCOUNTER 2023-06-05 06:02 | Inpatient (IN) | payer MEDICARE, MEDICAID, SELFPAY ==
[2023-05-29 11:19] VITALS: BP 136/74; PULSE 80; RESP 16; O2SAT 98; BMI 34.5
--- NOTE | 2023-05-29 12:35 | P.CONAN_ITS ---
Documented by User: Danica Coughlin NP 05/29/23 12:46 HPI - Anesthesia Eval Consult details Narrative: 62yo F for Left Hip Total Replacement No recent illness No CP/SOB with very minimal activity. Smoker. Recent quit. Enviro allergies. Flonase GERD. Very rare. No rx. RA. Has not started immunologics yet. PMFSH Active Problems Active Problems: All Active Problems (Updated 05/26/23 @ 09:29 by Mary Resendez RN) Seronegative rheumatoid arthritis (Acute) Osteopenia (Acute) Osteoarthritis of left hip (Acute) Past Medical History Medical History Hx of Diverticular disease Essential hypertension Osteoarthritis GERD (gastroesophageal reflux disease) Fibromyalgia Prediabetes Hyperlipidemia Family History Family History Mother Myocardial infarction Hypertension Stroke Brother Emphysema lung Father Heart disease S/P CABG x 3 Arthritis Brother Heart disease Family history of problems with anesthesia: No Surgical History Surgical History Hx of colonoscopy History of surgery on lower extremity Status post total hip replacement, right History of Problems with Anesthesia: No Social History Social History Household Members: Significant Other Housing: Apartment Are you a primary before and after school daycare worker to a significant other at home: No Do you presently have visiting nurse or other home services: No Alcohol intake: current Alcohol intake frequency: does not drink Patient Tobacco Use Status: Former Tobacco user Quit Date: 05/07/2023 Tobacco use type: Cigarette Years Smoked: 50 Smoked in Last 30 Days: Yes Patient Interested in Nicotine Replacement: No Second Hand Smoke Exposure: No Substance Use Type: Marijuana Have you been hit, kicked, punched, or otherwise hurt by someone within the past year? 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 Meds Allergies Allergy/AdvReac Type Severity Reaction Status Date / Time bee pollen [bee stings] Allergy Severe Anaphylaxis-bee Verified 06/05/23 06:15 and wasp stings ciprofloxacin [From Cipro] Allergy Severe Rash, hives Verified 06/05/23 06:15 crab Allergy Severe Hives, Verified 06/05/23 06:15 itching, swelling hydroxychloroquine Allergy Severe Hives, Verified 06/05/23 06:15 itching lobster Allergy Severe Hives, Verified 06/05/23 06:15 itching, swelling methotrexate Allergy Severe fatigue, Verified 06/05/23 06:15 hives, GI upset Home Medications Medication Instructions Recorded Confirmed Last Taken Type amlodipine 10 mg tablet 10 mg PO DAILY 11/29/22 05/31/23 06/04/23 History chlorthalidone 25 mg tablet 12.5 mg PO QAM 11/29/22 05/31/23 06/04/23 History diclofenac sodium 1 % topical gel 1 ea topical QID PRN Pain 11/29/22 05/31/23 06/04/23 History epinephrine 0.3 mg/0.3 mL 0.3 ml IM ONCE PRN Anaphylaxis 11/29/22 05/31/23 Unknown History injection, auto-injector fluticasone propionate 50 1 spray intranasal DAILY PRN 11/29/22 05/31/23 06/02/23 History mcg/actuation nasal Allergy Symptoms spray,suspension lisinopril 40 mg tablet 40 mg PO DAILY 11/29/22 05/31/23 06/04/23 History atorvastatin 20 mg tablet 20 mg PO DAILY 03/01/23 05/31/23 06/04/23 History acetaminophen 500 mg tablet 1,000 mg PO Q6H PRN Pain 05/26/23 05/31/23 06/04/23 History ascorbic acid 1,000 ea PO 05/26/23 05/31/23 06/04/23 History qy-ubvbjszjekhp-zeokmsei powder effervescent pack (Emergen-C) cholecalciferol (vitamin D3) 50 50 mcg PO DAILY 05/26/23 05/31/23 06/04/23 History mcg (2,000 unit) tablet (Vitamin D3) folic acid 1 mg tablet 1 mg PO DAILY 05/26/23 05/31/23 06/04/23 History Exam Exam Date and Time: May 29, 2023 1235 Height,Weight and Vital Signs: Height 5 ft Weight 80.1 kg Last Vital Signs Pulse 80 05/29/23 11:19 Resp 16 05/29/23 11:19 BP 136/74 05/29/23 11:19 Pulse Ox 98 05/29/23 11:19 O2 Del Method Room Air 05/29/23 11:19 Pertinent Lab Results Pertinent Lab Results: BMP and CBC 05/17/23 all WNL Narrative Narrative: EKG 04/2023 NSR Airway Denture: Upper Partial: Lower Loose/Missing/Broken Teeth: Yes (Only two remaining teeth, on bottom) Heart: RRR Lungs: ARLETTE slight coarse, otherwise CTAB Assessment and Plan Assessment Anesthesia Assessment: Anesthesia Plan Discussed, Smoking Cess. Discussed and PAT Visit Final Anesthetic Review Family History of Problems with Anesthesia: No History of Problems with Anesthesia: No Documented by User: Edna Benedict MD 06/05/23 07:27 [facility] Past Medical History Medical History Hx of Diverticular disease Essential hypertension Osteoarthritis GERD (gastroesophageal reflux disease) Fibromyalgia Prediabetes Hyperlipidemia Family History Family History Mother Myocardial infarction Hypertension Stroke Brother Emphysema lung Father Heart disease S/P CABG x 3 Arthritis Brother Heart disease Surgical History Surgical History Hx of colonoscopy History of surgery on lower extremity Status post total hip replacement, right Social History Social History Household Members: Significant Other Housing: Apartment Are you a primary before and after school daycare worker to a significant other at home: No Do you presently have visiting nurse or other home services: No Alcohol intake: current Alcohol intake frequency: does not drink Patient Tobacco Use Status: Former Tobacco user Quit Date: 05/07/2023 Tobacco use type: Cigarette Years Smoked: 50 Smoked in Last 30 Days: Yes Patient Interested in Nicotine Replacement: No Second Hand Smoke Exposure: No Substance Use Type: Marijuana Have you been hit, kicked, punched, or otherwise hurt by someone within the past year? 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 Meds Allergies Allergy/AdvReac Type Severity Reaction Status Date / Time bee pollen [bee stings] Allergy Severe Anaphylaxis-bee Verified 06/05/23 06:15 and wasp stings ciprofloxacin [From Cipro] Allergy Severe Rash, hives Verified 06/05/23 06:15 crab Allergy Severe Hives, Verified 06/05/23 06:15 itching, swelling hydroxychloroquine Allergy Severe Hives, Verified 06/05/23 06:15 itching lobster Allergy Severe Hives, Verified 06/05/23 06:15 itching, swelling methotrexate Allergy Severe fatigue, Verified 06/05/23 06:15 hives, GI upset Home Medications Medication Instructions Recorded Confirmed Last Taken Type amlodipine 10 mg tablet 10 mg PO DAILY 11/29/22 05/31/23 06/04/23 History chlorthalidone 25 mg tablet 12.5 mg PO QAM 11/29/22 05/31/23 06/04/23 History diclofenac sodium 1 % topical gel 1 ea topical QID PRN Pain 11/29/22 05/31/23 06/04/23 History epinephrine 0.3 mg/0.3 mL 0.3 ml IM ONCE PRN Anaphylaxis 11/29/22 05/31/23 Unknown History injection, auto-injector fluticasone propionate 50 1 spray intranasal DAILY PRN 11/29/22 05/31/23 06/02/23 History mcg/actuation nasal Allergy Symptoms spray,suspension lisinopril 40 mg tablet 40 mg PO DAILY 11/29/22 05/31/23 06/04/23 History atorvastatin 20 mg tablet 20 mg PO DAILY 03/01/23 05/31/23 06/04/23 History acetaminophen 500 mg tablet 1,000 mg PO Q6H PRN Pain 05/26/23 05/31/23 06/04/23 History ascorbic acid 1,000 ea PO 05/26/23 05/31/23 06/04/23 History qf-dcpcxkebdbeu-zozxvrst powder effervescent pack (Emergen-C) cholecalciferol (vitamin D3) 50 50 mcg PO DAILY 05/26/23 05/31/23 06/04/23 History mcg (2,000 unit) tablet (Vitamin D3) folic acid 1 mg tablet 1 mg PO DAILY 05/26/23 05/31/23 06/04/23 History Exam Airway Mallampati Class: II TM Dist: >3cm Neck ROM: Limited Denture: Lower Loose/Missing/Broken Teeth: Upper (has 2 lower left teeth remaining ) Assessment and Plan Assessment Anesthesia Assessment: Chart Reviewed Final Anesthetic Review NPO: Yes ASA Class: III Final Preanesthetic Review: No Changes in Pt Med Stat, Meds/Allgs Chart Reviewed, Consent Obtained/Reviewed and Anes Risks/Benef Reviewed Patient Risk: Intermediate Procedure Risk: Intermediate Anesthetic Plan Anesthetic Plan: GA Disposition: Standard PACU
[2023-05-29 13:25] LABS: MRSA Nasal PCR NEGATIVE (Negative); SA Nasal PCR NEGATIVE (Negative)
[2023-06-05] VITALS (33 sets, daily range): BP systolic 113–156; BP diastolic 51–91; PULSE 58–95; RESP 11–20; TEMP 36.1–36.8; O2SAT 95–100
--- NOTE | ~2023-06-05 | XR_ITS ---
EXAMINATION: XR PELVIS CLINICAL INFORMATION: Status post left total hip arthroplasty. COMPARISON: Pelvic x-ray 03/01/2023 TECHNIQUE: AP view of the pelvis. FINDINGS: Patient is status post left total hip arthroplasty. Components are in expected orientation. There is no periprosthetic fracture. Cerclage wire noted around the proximal left femur. Remote right total hip arthroplasty unremarkable. Vascular calcifications noted. XR/XR pelvis 1-2V IMPRESSION: Expected postoperative changes of the left hip.
[2023-06-05] MEDS: oxyCODONE HCl ER 10 MG TAB.ER.12H PO ×2 (06:35→19:47)
[2023-06-05] MEDS: vancomycin HCL 1,000 MG in 0.9 % Sodium Chloride 250 ML 270 MG IV ×2 (07:02→21:38)
[2023-06-05] MEDS: Lactated Ringers 1,000 ML 100 ML IVCONT ×2 (07:09→15:46)
--- NOTE | 2023-06-05 08:20 | PHA.MEDREC ---
Pharmacy Consult ? Medication Reconciliation Pharmacy has completed the medication reconciliation. Reviewed med rec done by nursing
[2023-06-05] MEDS: fentaNYL citrate/PF 100 MCG/2 ML VIAL 25 MCG IVPUSH ×4 (10:18→10:44)
--- NOTE | 2023-06-05 10:18 | P.BOP_ITS ---
Brief Operative Note Date of Service: 06/05/23 Pre-op diagnosis: Left hip degenerative joint disease Post-op diagnosis: same Procedure: Left total hip arthroplasty Implants: [place] press-fit total hip arthroplasty with an Accolade II femoral stem size 4 with a 132 degree neck-shaft angle, a Trident II Tritanium acetabular component with cluster hole size 52, a Biolox ceramic femoral head size 36 with a +0 mm neck, polyethylene liner size 36E with a 10 degree lip, 2 cancellous bone screws both measuring 25 mm in length, 1 Domo-Constantino cable Surgeon: Alcon Moncada MD Anesthesia: GETA Was an Smoke Jumper Supervisor used for this Procedure?: Yes Smoke Jumper Supervisor: Daniela Trimble Estimated blood loss (mL): 200 Pathology: other (Left femoral head) Condition: stable Disposition: PACU
--- NOTE | 2023-06-05 10:21 | W.PM.OPN ---
Operative Note Operative Note Date of Service: 06/05/23 Narrative: After the patient was identified as Angeline Wilks and her left hip was initialed by myself the patient was brought to the operating room where general anesthesia via endotracheal tube was induced by the anesthesiologist in routine fashion. Because of the patient's rheumatoid arthritis she was given both IV Ancef and IV vancomycin for infection prophylaxis. The patient was then gently rolled into the lateral position. An axillary roll was put into place. All bony prominences were well padded. The patient's pelvis was held securely with hip bolsters. The patient's left hip region and lower extremity were prepped and draped in sterile fashion. A #10 scalpel blade was then used to make a curvilinear incision centered over the greater trochanter. The subcutaneous tissues were dissected using electrocautery down to the fascia francisco. The fascia francisco was then split in line with the skin incision using electrocautery. The split in the fascia francisco was curved posteriorly along its cephalad aspect to help prevent injury to the innervation of the tensor fascia francisco muscle. The patient's leg was gently externally rotated. A lateral Cronin approach was then taken down to the anterior joint capsule. The anterior half of the vastus lateralis was split 1 cm from its insertion and tagged with #2 Ethibond suture. The anterior 1/3 of the gluteus medius incision was then split using electrocautery and tagged with #2 Ethibond suture. An anterior capsulectomy was then performed using electrocautery. The patient's femoral head was then dislocated anteriorly using a hook and gentle traction. Soft tissues were retracted around the femoral neck. The femoral neck cut was then made using a sagittal saw 1 cm proximal to the lesser trochanter. Our attention was then directed to the acetabulum. The labrum was removed using electrocautery. Soft tissue within the cotyloid notch was removed using electrocautery and a rongeur. The femoral head measured to be a size 46 mm. Thus, reaming was begun with a 46 mm reamer. Reaming was performed at 45 degrees of abduction and 20 degrees of anteversion. Reaming was increased incrementally up to a size 52 reamer. At this point we had reached the medial wall of the acetabulum. The acetabulum was irrigated with copious amounts of normal saline solution via pulse lavage. The final size 52 acetabular component was then impacted into place with 45 degrees of abduction and 20 degrees of anteversion. Two cancellous screws were then placed into the superior position. The acetabular component was irrigated with copious amounts of normal saline solution via pulse lavage. The polyethylene liner was then impacted into place with the lip in the posterior-superior position. A small sponge was placed into the acetabular component to protect it during preparation of the proximal femur. Our attention was then directed to the proximal femur. A Dall-Miles cable was placed just distal to the lesser trochanter to help prevent periprosthetic fracture. The patient's leg was then placed into a sterile pouch along the anterior aspect of the surgical suite table. Soft tissues were retracted around the proximal femur. A box cutting osteotome was used to make a groove in the medial aspect of the greater trochanter. Broaching was begun with a size 1 broach. Broaching was increased up to a size 4 broach. The size 4 broach fit well. There was both linear and rotational stability. The broach was removed. The intramedullary canal was irrigated with copious amounts of normal saline solution via pulse lavage. The final implant was impacted into place. There was both rotational and linear stability. The Dall-Miles cable was tightened and cut in routine fashion. A trial size 36 head with a +0 mm neck was put into place. The hip was reduced. Leg lengths were clinically equal. The hip was taken through a full range of motion. There was no instability. The hip was once again dislocated and the patient's leg was placed into the sterile pouch. The trial head was removed. The wound was irrigated with copious amounts of normal saline solution via pulse lavage. The final head was impacted in the place. Leg lengths were clinically equal. Hip was taken through a full range of motion. There was no instability. The patient's leg was then placed onto a well-padded Marre[place] stand. The wound was once again irrigated. The vastus lateralis and tensor fascia francisco tendons were repaired with #2 Ethibond [id number] interrupted suture. The wound was once again irrigated. The fascia fracnisco was closed with #2 Ethibond [id number] interrupted suture as well as #1 Vicryl [id number] interrupted suture. The wound was once again irrigated. The subcutaneous tissues were closed with 0 Vicryl and 2-0 Vicryl interrupted suture. The skin was closed with skin anshul. Dry sterile dressing was placed over the incision. The patient was gently rolled into the supine position. The patient was awoken and extubated in the operating room. The patient was transferred to the recovery room in stable condition.
[2023-06-05] MEDS: oxyCODONE HCl Immed Release 5 MG TABLET PO (10:36)
[2023-06-05] MEDS: HYDROmorphone HCl 0.5 MG/0.5 ML SYRINGE 0.25 MG IVPUSH ×2 (12:18→12:25)
[2023-06-05] MEDS: Acetaminophen 325 MG TABLET 650 MG PO ×2 (15:44→21:37)
[2023-06-05] MEDS: ondansetron HCL 4 MG/2 ML VIAL IVPUSH (15:44)
[2023-06-05] MEDS: oxyCODONE HCl Immed Release 5 MG TABLET 10 MG PO ×2 (15:45→21:37)
[2023-06-05] MEDS: methocarbamoL 750 MG TABLET PO ×2 (15:53→19:48)
[2023-06-05] MEDS: ceFAZolin Sodium/Dextrose,Iso 2 GM/50 ML PIGGYBACK IV (17:17)
[2023-06-05] MEDS: Aspirin 325 MG TABLET PO (17:17)
--- NOTE | 2023-06-05 17:25 | HO.PM.IMCN ---
History of Present Illness Data of Consult Service Date: 06/05/23 Primary Care Provider: Nolan Gee MD HPI 59/with seronegative RA, fibromyalgia, HTN, HLD, who underwent elective Left total hip arthroplasty today and is doing well post operative. She is being seen in medical consulation and has no acute complaint at this time, home meds reviewed, vitals are stable. Her pain is under controlled. Review of Systems Review of Systems: Gen: no fever Resp: no sob, no cough CV: no chest, no GONZALEZ, no leg edema GI: No n/v, no abd pain Neuro: No confusion Yes all other systems are reviewed and are negative PMFSH Medical History Hx of Diverticular disease Essential hypertension Osteoarthritis GERD (gastroesophageal reflux disease) Fibromyalgia Prediabetes Hyperlipidemia Family History Mother Myocardial infarction Hypertension Stroke Brother Emphysema lung Father Heart disease S/P CABG x 3 Arthritis Brother Heart disease Surgical History Hx of colonoscopy History of surgery on lower extremity Status post total hip replacement, right Social History Household Members: Significant Other Housing: Apartment Are you a primary before and after school daycare worker to a significant other at home: No Do you presently have visiting nurse or other home services: No Alcohol intake: current Alcohol intake frequency: does not drink Patient Tobacco Use Status: Former Tobacco user Quit Date: 05/07/2023 Tobacco use type: Cigarette Years Smoked: 50 Second Hand Smoke Exposure: No Substance Use Type: Marijuana service: No Current occupational status: retired 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 Meds Allergies Allergy/AdvReac Type Severity Reaction Status Date / Time bee pollen [bee stings] Allergy Severe Anaphylaxis-bee Verified 06/22/23 12:38 and wasp stings ciprofloxacin [From Cipro] Allergy Severe Rash, hives Verified 06/22/23 12:38 crab Allergy Severe Hives, Verified 06/22/23 12:38 itching, swelling hydroxychloroquine Allergy Severe Hives, Verified 06/22/23 12:38 itching lobster Allergy Severe Hives, Verified 06/22/23 12:38 itching, swelling methotrexate Allergy Severe fatigue, Verified 06/22/23 12:38 hives, GI upset Active Medications: Current Medications Acetaminophen (Acetaminophen 325 Mg Tablet) 650 mg PO Q6H PRN PRN Reason: Pain, Mild (Pain Scale 1-3) Last Admin: 06/05/23 15:44 Dose: 650 mg Amlodipine Besylate (Amlodipine Besylate 10 Mg Tablet) 10 mg PO DAILY [facility]; Protocol Aspirin (Aspirin 325 Mg Tablet) 325 mg PO Q12H [facility] Last Admin: 06/05/23 17:17 Dose: 325 mg Atorvastatin Calcium (Atorvastatin Calcium 20 Mg Tablet) 20 mg PO DAILY [facility] Celecoxib (Celecoxib 200 Mg Capsule) 200 mg PO BID [facility] Docusate Sodium (Docusate Sodium 100 Mg Capsule) 100 mg PO BID [facility] Fluticasone Propionate (Fluticasone Propionate Nasal 16 Gm [place]) 1 spray NOSTRIL-B DAILY PRN PRN Reason: Allergy Symptoms Folic Acid (Folic Acid 1 Mg Tablet) 1 mg PO DAILY [facility] Gabapentin (Gabapentin 100 Mg Capsule) 100 mg PO BEDTIME [facility] Hydrochlorothiazide (Hydrochlorothiazide 12.5 Mg Tablet) 12.5 mg PO DAILY [facility] Hydromorphone HCl (Hydromorphone Hcl 0.5 Mg/0.5 Ml Syringe) 0.25 mg IVPUSH Q4H PRN; Protocol PRN Reason: Pain, Severe (Pain Scale 7-10) Hydromorphone HCl (Hydromorphone Hcl 0.5 Mg/0.5 Ml Syringe) 0.5 mg IVPUSH Q4H PRN; Protocol PRN Reason: Pain, Severe (Pain Scale 7-10) Lactated Ringer's (Lr) 1,000 mls @ 100 mls/hr IVCONT .Q10H [facility] Last Admin: 06/05/23 15:46 Dose: 100 mls/hr Vancomycin HCl 1,000 mg/ (Sodium Chloride) 270 mls @ 270 mls/hr IV POSTOP@2230 [facility] Cefazolin Sodium/Dextrose (Ancef) 2 gm in 50 mls @ 100 mls/hr IV Q8H [facility] Stop: 06/06/23 16:59 Last Admin: 06/05/23 17:17 Dose: 100 mls/hr Lisinopril (Lisinopril 40 Mg Tablet) 40 mg PO DAILY [facility]; Protocol Methocarbamol (Methocarbamol 750 Mg Tablet) 750 mg PO TID [facility] Last Admin: 06/05/23 15:53 Dose: 750 mg Ondansetron HCl (Ondansetron Hcl 4 Mg/2 Ml Vial) 4 mg IVPUSH Q8H PRN PRN Reason: Nausea and Vomiting Last Admin: 06/05/23 15:44 Dose: 4 mg Oxycodone HCl (Oxycodone Hcl Immed Release 5 Mg Tablet) 5 mg PO Q4H PRN PRN Reason: Pain, Moderate(Pain Scale 4-6) Oxycodone HCl (Oxycodone Hcl Er 10 Mg Tab.Er.12h) 10 mg PO BID [facility] Oxycodone HCl (Oxycodone Hcl Immed Release 5 Mg Tablet) 10 mg PO Q6H PRN PRN Reason: Pain, Moderate(Pain Scale 4-6) Last Admin: 06/05/23 15:45 Dose: 10 mg Pharmacy Consult (Consult Rx Vancomycin Dosing) 1 each MISCELLANE DAILY PRN PRN Reason: Consult order Sodium Chloride (0.9 % Sodium Chloride Flush 3 Ml Syringe) 3 ml IVFLUSH QSHIFT [facility] Last Admin: 06/05/23 15:51 Dose: Not Given Vitamin D (Cholecalciferol (Vitamin D3) 25 Mcg Tablet) 50 mcg PO DAILY [facility] Home Medications Medication Instructions Recorded Confirmed Last Taken Type amlodipine 10 mg tablet 10 mg PO DAILY 11/29/22 06/22/23 06/04/23 History chlorthalidone 25 mg tablet 12.5 mg PO DAILY 11/29/22 06/22/23 06/04/23 History diclofenac sodium 1 % topical gel 1 ea topical QID PRN Pain 11/29/22 06/22/23 06/04/23 History epinephrine 0.3 mg/0.3 mL 0.3 ml IM ONCE PRN Anaphylaxis 11/29/22 06/22/23 Unknown History injection, auto-injector fluticasone propionate 50 1 spray intranasal DAILY PRN 11/29/22 06/22/23 06/02/23 History mcg/actuation nasal Allergy Symptoms spray,suspension lisinopril 40 mg tablet 40 mg PO DAILY 11/29/22 06/22/23 06/04/23 History atorvastatin 20 mg tablet 20 mg PO DAILY 03/01/23 06/22/23 06/04/23 History ascorbic acid 1,000 ea PO 05/26/23 06/22/23 06/04/23 History tg-wadfbcltionk-nzmijtza powder effervescent pack (Emergen-C) cholecalciferol (vitamin D3) 50 50 mcg PO DAILY 05/26/23 06/22/23 06/04/23 History mcg (2,000 unit) tablet (Vitamin D3) folic acid 1 mg tablet 1 mg PO DAILY 05/26/23 06/22/23 06/04/23 History Physical Exam Vital Signs and Narrative: Vital Signs: Last Vital Signs Temp 97.5 F 06/05/23 15:30 Pulse 65 06/05/23 15:30 Resp 18 06/05/23 15:30 BP 137/79 06/05/23 15:30 Pulse Ox 95 06/05/23 15:30 O2 Del Method Room Air 06/05/23 15:30 O2 Flow Rate 2 06/05/23 13:47 BMI result Body Mass Index 34.5 Results Labs 06/07/23 05:44 06/07/23 05:44 Imaging Radiologist's Impressions: Impressions Pelvis X-Ray 06/05/23 11:12 IMPRESSION: Expected postoperative changes of the left hip. Assessment and Plan (1) Seronegative rheumatoid arthritis: Status: Acute Plan 59/with seronegative RA, fibromyalgia, HTN, HLD, who underwent elective Left total hip arthroplasty today and is doing well post operative. HTN--restart Norvasc, hold Lisinopril and Chlorthalidone HLD--Lipitor Fibromyalgia RA--outaptient management will follow
[2023-06-05] MEDS: Celecoxib 200 MG CAPSULE PO (19:48)
[2023-06-05] MEDS: Docusate Sodium 100 MG CAPSULE PO (19:48)
[2023-06-05] MEDS: Gabapentin 100 MG CAPSULE PO (19:48)
[2023-06-06] MEDS: ceFAZolin Sodium/Dextrose,Iso 2 GM/50 ML PIGGYBACK IV ×2 (00:17→09:28)
[2023-06-06] MEDS: oxyCODONE HCl Immed Release 5 MG TABLET 10 MG PO (03:17)
[2023-06-06] MEDS: Lactated Ringers 1,000 ML 100 ML IVCONT ×3 (03:18→20:43)
[2023-06-06 03:23] VITALS: BP 138/72; PULSE 76; RESP 18; TEMP 36.1; O2SAT 96
[2023-06-06 05:30] LABS: MANUAL DIFF FLAG NO
[2023-06-06 05:33] LABS: Basophils Percent Auto 0.2 % (0-2); Eosinophils Percent Auto 0.1 % (0-4); Hematocrit 33.7 % (37.0-47.0); Hemoglobin 11.2 g/dl (12.0-16.0); Imm Gran Abs Auto 0.07 X10*3/uL (0.00-0.03); Imm Gran Pct Auto 0.5 % (0.0-0.4); Lymphocytes Percent Auto 15.1 % (20-40); Mean Corpuscular HGB Conc 33.2 g/dl (31.0-35.0); Mean Corpuscular Hemoglobin 32.1 pg (27.0-33.0); Mean Corpuscular Volume 96.6 fL (80.0-98.0); Mean Platelet Volume 8.5 fL (9.4-12.3); Monocytes Absolute Auto 1.1 X10*3/uL (0.1-1.2); Monocytes Percent Auto 8.5 % (2-11); Neutrophils Percent Auto 75.6 % (45-73); Platelet Count 297 X10*3/uL (160-400); Red Blood Count 3.49 X10*6/uL (4.20-5.50); Red Cell Distribution Width 13.7 % (11.0-16.0); White Blood Count 13.3 X10*3/uL (4.8-10.8)
[2023-06-06 05:47] LABS: Anion Gap 12 (12-20); Blood Urea Nitrogen 9 mg/dL (9-16); Calcium 8.7 mg/dL (8.4-10.2); Carbon Dioxide 26 mmol/L (22-29); Chloride 105 mmol/L (96-108); Creatinine Clr Calc Pharmacy 88.7; Estimated Glomerular Filt Rate > 60; Glucose Fasting 105 mg/dL (60-99); Sodium 139 mmol/L (135-145)
[2023-06-06] MEDS: Aspirin 325 MG TABLET PO ×2 (06:18→18:05)
[2023-06-06 06:57] VITALS: BP 152/82; PULSE 68; RESP 16; TEMP 36.1; O2SAT 95
[2023-06-06] MEDS: Folic Acid 1 MG TABLET PO (07:30)
[2023-06-06] MEDS: hydroCHLOROthiazide 12.5 MG TABLET PO (07:30)
--- NOTE | 2023-06-06 07:30 | P.PNOP_ITS ---
Subjective Subjective Date of Service: 06/06/23 Interval history: POD 1 sp LT KARI no overnight events resting in bed denies sob, cp, palpitations Physical Exam Vital Signs: Vital Signs: Last Vital Signs Temp 97 F 06/06/23 06:57 Pulse 68 06/06/23 06:57 Resp 16 06/06/23 06:57 BP 152/82 H 06/06/23 06:57 Pulse Ox 95 06/06/23 06:57 O2 Del Method Room Air 06/06/23 06:57 O2 Flow Rate 2 06/05/23 13:47 BMI result Body Mass Index 34.5 Const: General: cooperative, healthy appearing and no acute distress Resp: Effort & Inspection: normal respiratory effort and able to speak in complete sentences Cardio: Rate: regular rate Peripheral pulses: Peripheral pulses 2+ throughout GI: Palpation (GI): Soft to palpation Skin: General skin exam: no rashes or lesions noted Extrem: Other: bandage clean dry and intact. [place] intact. No erythema or effusion. Calf supple nontender. Neurovascularly intact. Procedures Date of Service Date of Service: 06/06/23 Progress Note: A&P Assessment and plan (1) History of total left hip replacement: Status: Acute Assessment and Plan: * Continue pain mgmnt * Begin Aspirin for dvt ppx * begin PT for LT Kari * Dispo planning-Pending PT eval, pain mgmnt Need for continued inpatient stay: uncontrolled pain, PT eval Time Spent With Patient Time: Total time managing care of this patient today ____ minutes. Quality Stroke Does the patient have a stroke diagnosis?: No VTE Prior VTE?: No VTE Risk Level:: Surgical - very high VTE Device Contraindication: N/A - Device Ordered VTE Drug Contraindication: N/A - Med Ordered
[2023-06-06] MEDS: Cholecalciferol (Vitamin D3) 25 MCG TABLET 50 MCG PO (07:31)
[2023-06-06] MEDS: amLODIPine Besylate 10 MG TABLET PO (07:31)
[2023-06-06] MEDS: methocarbamoL 750 MG TABLET PO ×3 (07:31→20:08)
[2023-06-06] MEDS: Atorvastatin Calcium 20 MG TABLET PO (07:31)
[2023-06-06] MEDS: HYDROmorphone HCl 0.5 MG/0.5 ML SYRINGE IVPUSH ×2 (07:32→13:19)
[2023-06-06] MEDS: Docusate Sodium 100 MG CAPSULE PO ×2 (07:32→20:07)
[2023-06-06] MEDS: 0.9 % Sodium Chloride Flush 3 ML SYRINGE IVFLUSH (07:35)
[2023-06-06] MEDS: Celecoxib 200 MG CAPSULE PO ×2 (07:41→20:07)
[2023-06-06 08:00] VITALS: BP 152/82; PULSE 68; O2SAT 95
[2023-06-06] MEDS: oxyCODONE HCl ER 10 MG TAB.ER.12H PO ×2 (09:28→20:07)
--- NOTE | 2023-06-06 09:57 | MHC.CM.PN ---
pt lives with s/o had no previous servceis is indepndent dc plan home no servceis
--- NOTE | 2023-06-06 12:55 | HO.POSTANES ---
Post Anesthesia Evaluation Post Anesthesia Evaluation Date of Service: 06/06/23 Vital Signs: Vital Signs Temp Pulse Resp BP Pulse Ox O2 Del Method 06/06/23 08:00 68 152/82 H 95 06/06/23 06:57 97 F 68 16 152/82 H 95 Room Air 06/06/23 03:23 97 F 76 18 138/72 96 Room Air Anesthesia: General Mental Status: Awake Pain Control: Satisfactory Nausea/Vomiting: None Hydration: Adequate Anesthesia-Related Issues: No Anes. Related Issues
[2023-06-06 14:07] VITALS: BP 152/82; PULSE 68; O2SAT 95
[2023-06-06 15:19] VITALS: BP 132/68; PULSE 73; RESP 16; TEMP 37.1; O2SAT 97
[2023-06-06 19:44] VITALS: BP 134/68; PULSE 82; RESP 18; TEMP 36.7; O2SAT 97
[2023-06-06] MEDS: Gabapentin 100 MG CAPSULE PO (20:07)
[2023-06-06] MEDS: Magnesium Hydrox/Alum Hydrox 30 ML ORAL.SUSP PO (20:08)
[2023-06-07 03:06] VITALS: BP 115/65; PULSE 76; RESP 16; TEMP 36; O2SAT 95
[2023-06-07] MEDS: Aspirin 325 MG TABLET PO (05:28)
[2023-06-07] MEDS: Magnesium Hydrox/Alum Hydrox 30 ML ORAL.SUSP PO (05:33)
[2023-06-07 05:55] LABS: MANUAL DIFF FLAG NO
[2023-06-07] MEDS: Lactated Ringers 1,000 ML 100 ML IVCONT (06:08)
[2023-06-07 06:09] LABS: Anion Gap 10 (12-20); Blood Urea Nitrogen 9 mg/dL (9-16); Calcium 8.5 mg/dL (8.4-10.2); Carbon Dioxide 29 mmol/L (22-29); Chloride 102 mmol/L (96-108); Creatinine Clr Calc Pharmacy 91.7; Estimated Glomerular Filt Rate > 60; Glucose Fasting 109 mg/dL (60-99); Potassium 3.5 mmol/L (3.3-5.1); Sodium 137 mmol/L (135-145)
[2023-06-07 06:32] LABS: Basophils Percent Auto 0.3 % (0-2); Eosinophils Absolute Auto 0.1 X10*3/uL (0.0-0.4); Eosinophils Percent Auto 0.6 % (0-4); Hematocrit 30.9 % (37.0-47.0); Hemoglobin 10.4 g/dl (12.0-16.0); Imm Gran Abs Auto 0.04 X10*3/uL (0.00-0.03); Imm Gran Pct Auto 0.4 % (0.0-0.4); Lymphocytes Absolute Auto 2.6 X10*3/uL (1.2-4.9); Lymphocytes Percent Auto 24.5 % (20-40); Mean Corpuscular HGB Conc 33.7 g/dl (31.0-35.0); Mean Corpuscular Hemoglobin 31.7 pg (27.0-33.0); Mean Corpuscular Volume 94.2 fL (80.0-98.0); Mean Platelet Volume 8.6 fL (9.4-12.3); Monocytes Absolute Auto 0.9 X10*3/uL (0.1-1.2); Monocytes Percent Auto 8.9 % (2-11); Neutrophils Absolute Auto 6.8 x10*3/uL (2.0-8.3); Neutrophils Percent Auto 65.3 % (45-73); Platelet Count 263 X10*3/uL (160-400); Red Blood Count 3.28 X10*6/uL (4.20-5.50); Red Cell Distribution Width 13.6 % (11.0-16.0); White Blood Count 10.4 X10*3/uL (4.8-10.8)
--- NOTE | 2023-06-07 07:48 | P.F2F_ITS ---
Service Date Service Date: 06/07/23 Encounter Date of encounter: 06/07/23 Reasons for Services Signs and symptoms assessed: s/p LTHA. Pt. is considered homebound due to recent surgery. Unable to drive, poor balance, poor gait mechanics. Reason for physical therapy: home safety and mobility, therapeutic exercises, restore joint function, gait/transfer training, assess need for DME and ADL training Reason for occupational therapy: home safety and mobility, therapeutic exercises, restore joint function, gait/transfer training, assess need for DME and ADL training Homebound: Leaving the home is medically contraindicated at this time without the asist of a device and/or another person due th the listed conditions above and below. Reason homebound: unsteady gait / fall risk, pain with ambulation, pain with transfers, poor balance / fall risk and unable to drive Certification: Based on the above findings, I certify that this patient is confined to the home and needs intermittent intermediate care, physical therapy and/or speech the rapy, or continues to need occupational therapy. The patient is under my care, and I have initiated the establishment of the plan of care. The patient will be followed by a physician who will periodically review the plan of care. Time Spent With Patient Time: Total time managing care of this patient today ____ minutes.
--- NOTE | 2023-06-07 07:49 | PM.DS ---
DS: Providers Provider Date of Service: 06/07/23 Date of admission: 06/05/23 06:02 Primary care physician: Nolan Gee MD Consults: 06/05/23 15:06 Consult to Hospitalist Routine Comment: Consulting Provider: Hospitalist Reason For Exam: Routine Medical Management DS: Diagnosis Discharge Diagnosis (1) History of total left hip replacement: Status: Acute DS: Summary Hospital Course Hospital Course: The patient underwent a successful left total hip arthroplasty, they were transferred to PACU and then to the floor to recover. During their stay, their vitals were stable, afebrile at 96.8. Labs were unremarkable, H/H 10.4/30.9. POD 1 they were started on Aspirin 325mg po bid for DVT ppx, they also received Physical Therapy services twice a day. Prior to discharge, their dressing was changed, incision clean dry and intact, new Aquacel dressing applied and the plan was to be discharged home with VNA services. Time Attestation Discharge coordination time: Less than 30 minutes Quality: Safe Use of Opioids Does Pt have an Active Cancer Diagnosis on the Problem List?: No Quality: Stroke Does the patient have a stroke diagnosis?: No Physical Exam Vital Signs: Vital Signs: Last Vital Signs Temp 96.8 F 06/07/23 03:06 Pulse 76 06/07/23 03:06 Resp 16 06/07/23 03:06 BP 115/65 06/07/23 03:06 Pulse Ox 95 06/07/23 03:06 O2 Del Method Room Air 06/07/23 03:06 O2 Flow Rate 2 06/05/23 13:47 BMI result Body Mass Index 34.5 Const: General: cooperative, healthy appearing and no acute distress Resp: Effort & Inspection: normal respiratory effort and able to speak in complete sentences Cardio: Rate: regular rate Peripheral pulses: Peripheral pulses 2+ throughout GI: Palpation (GI): Soft to palpation Skin: General skin exam: no rashes or lesions noted Extrem: Other: Left hip bandage clean dry and intact. Damon intact. No erythema or effusion. Calf supple nontender. Neurovascularly intact. DS: Data Data Completed and Pending Pending studies at discharge: Pending at discharge 06/05/23 08:25 Surgical [PTH] Routine Labs on day of discharge: Laboratory Results - last 24 hr 06/07/23 05:44 WBC 10.4 RBC 3.28 L Hgb 10.4 L Hct 30.9 L MCV 94.2 MCH 31.7 MCHC 33.7 RDW 13.6 Plt Count 263 MPV 8.6 L Immature Gran % (Auto) 0.4 Neut % (Auto) 65.3 Lymph % (Auto) 24.5 [place] % (Auto) 8.9 Eos % (Auto) 0.6 Baso % (Auto) 0.3 Lymph # (Auto) 2.6 [place] # (Auto) 0.9 Eos # (Auto) 0.1 Baso # (Auto) 0.0 Abs Immat Gran (auto) 0.04 H Absolute Neuts (auto) 6.8 Absolute Nucleated RBC 0.000 Nucleated RBC % (auto) 0.0 Sodium 137 Potassium 3.5 Chloride 102 Carbon Dioxide 29 Anion Gap 10 L BUN 9 Creatinine 0.58 Estim Creat Clear Calc 91.7 Estimated GFR > 60 Fasting Glucose 109 H Calcium 8.5 Discharge Plan Discharge Anticipated Discharge Date/Time: 06/07/23 15:35 Patient Disposition: Home Health Service Discharge Diagnosis: s/p LT Referrals: Daniela Trimble PA-C [Physician Pediatrician Active Practice] - 06/22/23 12:30 pm Discharge Medications: New methocarbamol 750 mg Tablet 750 mg PO TID 7 Days Qty: 21 0RF acetaminophen 325 mg Tablet 650 mg PO Q6H PRN (Reason: Pain, Mild (Pain Scale 1-3)) 30 Days Qty: 240 0RF aspirin 325 mg Tablet 325 mg PO Q12H 42 Days Qty: 84 0RF celecoxib 200 mg Capsule 200 mg PO BID 30 Days Qty: 60 0RF docusate sodium 100 mg Capsule 100 mg PO BID 30 Days Qty: 60 0RF gabapentin 100 mg Capsule 100 mg PO BEDTIME 7 Days Qty: 7 0RF oxycodone 5 mg Tablet 5 mg PO Q4H PRN (Reason: Pain, Moderate(Pain Scale 4-6)) 7 Days Qty: 42 0RF Rx Instructions: Partial Fill upon patient request. Continued Enbrel SureClick 50 mg/mL (1 mL) pen injector 50 mg subcut QWEEK Qty: 4 2RF Patient Comments: hasn't started using yet (DME) walker Misc See Rx Instructions .ROUTE .MEDSUPPLY Qty: 1 0RF Rx Instructions: Folding front wheeled walker folic acid 1 mg Tablet 1 mg PO DAILY cholecalciferol (vitamin D3) [Vitamin D3] 50 mcg (2,000 unit) Tablet 50 mcg PO DAILY Emergen-C 1,000 mg Powder Effervescent In Packet PO diclofenac sodium 1 % gel 1 ea topical QID PRN (Reason: Pain) lisinopril 40 mg tablet 40 mg PO DAILY amlodipine 10 mg tablet 10 mg PO DAILY chlorthalidone 25 mg tablet 12.5 mg PO DAILY epinephrine 0.3 mg/0.3 mL auto-injector 0.3 ml IM ONCE PRN (Reason: Anaphylaxis) fluticasone propionate 50 mcg/actuation spray,suspension 1 spray intranasal DAILY PRN (Reason: Allergy Symptoms) atorvastatin 20 mg tablet 20 mg PO DAILY Discontinued acetaminophen 500 mg Tablet 1,000 mg PO Q6H PRN (Reason: Pain) Discharge Orders: Discharge Order (Routine); Ordered 06/07/23 Ordered By: Daniela Trimble Diet: Advance to usual diet Activity on Discharge: Use cane or walker Stand Alone Forms: Patient Portal Discharge page Care Plan Goals: restore fxn to left hip Health Concerns: None Plan of Treatment: Physical Therapy for total hip arthroplasty: no precautions, gait training, ROM, strength Limit stair climbing No showering, no tub bath-keep dressing clean, dry and intact No driving x6 weeks Continue Aspirin 325mg tabs twice a day x 4 weeks Follow up with [facility] [place] [facility] Assessment: Stable for discharge
[2023-06-07] MEDS: Folic Acid 1 MG TABLET PO (07:51)
[2023-06-07] MEDS: Cholecalciferol (Vitamin D3) 25 MCG TABLET 50 MCG PO (07:51)
[2023-06-07] MEDS: Docusate Sodium 100 MG CAPSULE PO (07:51)
[2023-06-07] MEDS: oxyCODONE HCl ER 10 MG TAB.ER.12H PO (07:52)
[2023-06-07] MEDS: methocarbamoL 750 MG TABLET PO (07:52)
[2023-06-07] MEDS: amLODIPine Besylate 10 MG TABLET PO (07:52)
[2023-06-07] MEDS: Celecoxib 200 MG CAPSULE PO (07:52)
[2023-06-07] MEDS: Atorvastatin Calcium 20 MG TABLET PO (07:53)
[2023-06-07] MEDS: hydroCHLOROthiazide 12.5 MG TABLET PO (07:53)
[2023-06-07 08:00] VITALS: BP 144/74; PULSE 77; RESP 18; TEMP 36.9; O2SAT 98
[2023-06-07 08:14] VITALS: BP 144/74; PULSE 77; O2SAT 98
--- NOTE | 2023-06-07 10:41 | MHC.CM.PN ---
pt dcd today with [facility] ,[facility] dos not cover [place] [facility]
== END 2023-06-07 10:31 | disposition home health service (06) | DRG 470 ==
LOC: HO.SSSA 06:04 → HO.S3 14:33
PROVIDERS: Physician Assistant; Admitting Provider Orthopaedic Surgery; PCP Internal Medicine; Visit Provider Orthopaedic Surgery
PROC: 0SRB0JA Replacement of Left Hip Joint with Synthetic Substitute, Uncemented, Open Approach (ICD-10-PCS; CPT 27130; principal; 2023-06-05 07:30)
DX: M16.12 Unilateral primary osteoarthritis, left hip (principal); K21.9 Gastro-esophageal reflux disease without esophagitis; M06.00 Rheumatoid arthritis without rheumatoid factor, unspecified site; M79.7 Fibromyalgia; Z87.891 Personal history of nicotine dependence; Z79.620 Long term (current) use of immunosuppressive biologic; Z79.899 Other long term (current) drug therapy
CPT/HCPCS: 27130; 36415; 72170; 80048; 85025; 86850; 86900; 86901; 87640; 87641; 88304; 88305; 88311; 97110; 97116; 97162; 97165; 97535; C1713; C1776; J0131; J0690; J1100; J1170; J2250; J2405; J2704; J3010; J3370; J7120

== ENCOUNTER → 2023-06-05 06:02 | Outpatient (BNV) | payer MEDICARE, MEDICAID, SELFPAY | PROVIDERS: Admitting Provider Orthopaedic Surgery; PCP Internal Medicine; Visit Provider Orthopaedic Surgery | DX: Z47.1 Aftercare following joint replacement surgery (principal); Z96.642 Presence of left artificial hip joint | CPT/HCPCS: 27130; 99024; G0180 ==

== ENCOUNTER → 2023-06-05 06:02 | Outpatient (BNV) | payer MEDICARE, MEDICAID, SELFPAY | PROVIDERS: Admitting Provider Orthopaedic Surgery; PCP Internal Medicine; Visit Provider Internal Medicine | DX: M06.00 Rheumatoid arthritis without rheumatoid factor, unspecified site (principal); I10 Essential (primary) hypertension; M79.7 Fibromyalgia | CPT/HCPCS: 99222 ==

== ENCOUNTER → 2023-06-14 12:22 | Outpatient (BNVA) | payer MEDICARE, MEDICAID, SELFPAY | PROVIDERS: PCP Internal Medicine; Visit Provider Orthopaedic Surgery ==

== ENCOUNTER 2023-06-19 11:29 | Outpatient (AMB) | payer MEDICARE, MEDICAID, SELFPAY ==
--- NOTE | 2023-06-19 11:32 | A.OFFVIS_ITS ---
Intake Intake Visit Reasons: Bandage change Intake Note: Angeline is a 62 year old female who presents today for a bandage change. Allergies bee pollen [bee stings] Allergy (Severe, Verified 06/19/23 11:34) Anaphylaxis-bee and wasp stings ciprofloxacin [From Cipro] Allergy (Severe, Verified 06/19/23 11:34) Rash, hives crab Allergy (Severe, Verified 06/19/23 11:34) Hives, itching, swelling hydroxychloroquine Allergy (Severe, Verified 06/19/23 11:34) Hives, itching lobster Allergy (Severe, Verified 06/19/23 11:34) Hives, itching, swelling methotrexate Allergy (Severe, Verified 06/19/23 11:34) fatigue, hives, GI upset HPI Bandage change HPI Details 62-year-old female who presents in the o [facility] today for a bandage change; 2 weeks status post left total hip arthroplasty, which was performed on 06/05/[address] Moncada. Reports that her current banadage got caught on her pants and rolled nearly off. [facility] Medical History Hx of Diverticular disease Essential hypertension Osteoarthritis GERD (gastroesophageal reflux disease) Fibromyalgia Prediabetes Hyperlipidemia Surgical History Hx of colonoscopy History of surgery on lower extremity Status post total hip replacement, right Family History Mother Myocardial infarction Hypertension Stroke Brother Emphysema lung Father Heart disease S/P CABG x 3 Arthritis Brother Heart disease Household Members: Significant Other Housing: Apartment Are you a primary pediatric acute care unit nurse to a significant other at home: No Do you presently have visiting nurse or other home services: No Alcohol intake: current Alcohol intake frequency: does not drink Patient Tobacco Use Status: Former Tobacco user Quit Date: 05/07/2023 Tobacco use type: Cigarette Years Smoked: 50 Second Hand Smoke Exposure: No Substance Use Type: Marijuana service: No Current occupational status: retired 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 Damon intact. No surrounding erythema or drainage. No signs of infection. Assessment & Plan Assessment & Plan (1) History of total left hip replacement: Code(s): Z96.642 - Presence of left artificial hip joint Plan Ms. Wilks is a 62-year-old female who presents in the office today for a bandage change; 2 weeks status post left total hip arthroplasty, which was performed on 06/05/[address] Moncada. New aquacel dressing was applied while in the office today. The patient will follow up at her regularly scheduled appointment, or sooner if needed. Patient Instructions: Scribed for Daniela Trimble PA-C by Vandana Whitt medical chief technician, on 06/19/2023 at 11:41 am, EST. Coding Level of Care Code Global (48763) Diagnoses History of total left hip replacement Z96.642
== END 2023-06-19 12:07 | disposition home or self-care (01) ==
PROVIDERS: PCP Internal Medicine; Visit Provider Physician Assistant
DX: Z96.642 Presence of left artificial hip joint (principal)
CPT/HCPCS: 99024

== ENCOUNTER → 2023-06-19 11:29 | Outpatient (BNVA) | payer MEDICARE, MEDICAID, SELFPAY | PROVIDERS: PCP Internal Medicine; Visit Provider Physician Assistant ==

== ENCOUNTER 2023-06-22 09:53 | Outpatient (RCR) | payer MEDICARE, MEDICAID, SELFPAY | END 2023-10-06 15:23 | disposition home or self-care (01) | LOC: HO.PT 09:53 | PROVIDERS: PCP Internal Medicine; Visit Provider Physician Assistant | DX: Z96.642 Presence of left artificial hip joint (principal) ==

== ENCOUNTER 2023-06-22 12:12 | Outpatient (AMB) | payer MEDICARE, MEDICAID, SELFPAY ==
--- NOTE | 2023-06-22 12:20 | A.OFFVIS_ITS ---
Intake Intake Visit Reasons: PO-LT INGRID 06/05/23 Intake Note: This is a 63 year old female who presents for a post op left INGRID 06/05/23 with . She reports no pain but some stiffness. Allergies bee pollen [bee stings] Allergy (Severe, Verified 06/22/23 12:38) Anaphylaxis-bee and wasp stings ciprofloxacin [From Cipro] Allergy (Severe, Verified 06/22/23 12:38) Rash, hives crab Allergy (Severe, Verified 06/22/23 12:38) Hives, itching, swelling hydroxychloroquine Allergy (Severe, Verified 06/22/23 12:38) Hives, itching lobster Allergy (Severe, Verified 06/22/23 12:38) Hives, itching, swelling methotrexate Allergy (Severe, Verified 06/22/23 12:38) fatigue, hives, GI upset Medication List - Last Reconciled 06/22/23 by Elinor Guy, RN acetaminophen 650 mg (2 x 325 mg) PO Q6H PRN 30 days amlodipine 10 mg PO DAILY ascorbic mepm-ufsxsoru-vad 1,000 mg (Emergen-C) ea PO aspirin 325 mg PO Q12H 42 days atorvastatin 20 mg PO DAILY celecoxib 200 mg PO BID 30 days chlorthalidone 12.5 mg PO DAILY cholecalciferol (vitamin D3) (Vitamin D3) 50 mcg PO DAILY diclofenac sodium 1% 1 ea topical QID PRN docusate sodium 100 mg PO BID 30 days Enbrel SureClick (etanercept) 50 mg subcut QWEEK NS epinephrine 0.3 mL IM ONCE PRN fluticasone propionate 50 mcg/actuation 1 spray intranasal DAILY PRN folic acid 1 mg PO DAILY gabapentin 100 mg PO BEDTIME 7 days lisinopril 40 mg PO DAILY methocarbamol 750 mg PO TID 7 days oxycodone 5 mg PO Q4H PRN 7 days walker Folding front wheeled walker HPI PO-LT INGRID 06/05/23 DR MIGUEL Details 63-year-old female who presents in the o ffice today 2 weeks status post left total hip arthroplasty, which was performed on 06/05/[address] Moncada. The patient denies having any pain while in the office today, however does confirm stiffness. The patient presents ambulating with a cane. [facility] Medical History Hx of Diverticular disease Essential hypertension Osteoarthritis GERD (gastroesophageal reflux disease) Fibromyalgia Prediabetes Hyperlipidemia Surgical History Hx of colonoscopy History of surgery on lower extremity Status post total hip replacement, right Family History Mother Myocardial infarction Hypertension Stroke Brother Emphysema lung Father Heart disease S/P CABG x 3 Arthritis Brother Heart disease Social History Household Members: Significant Other Housing: Apartment Are you a primary healthcare administration intern to a significant other at home: No Do you presently have visiting nurse or other home services: No Alcohol intake: current Alcohol intake frequency: does not drink Patient Tobacco Use Status: Former Tobacco user Quit Date: 05/07/2023 Tobacco use type: Cigarette Years Smoked: 50 Second Hand Smoke Exposure: No Substance Use Type: Marijuana service: No Current occupational status: retired 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 Damon intact. No surrounding erythema or drainage. No signs of infection. Able to preform good hip flexion, extension, internal and external rotation. Assessment & Plan Assessment & Plan (1) History of total left hip replacement: Code(s): Z96.642 - Presence of left artificial hip joint Plan Ms. Wilks is a 63-year-old female who presents in the office today 2 weeks status post left total hip arthroplasty, which was performed on 06/05/[address] Moncada. The patient denies having any pain while in the office today, however does confirm stiffness. The patient presents ambulating with a cane. [place] were removed and steri-stripes were applied. The patient will continue to work with physical therapy. Follow up will be in [address] Moncada, or sooner if needed. Orders: Orders PT Evaluation and Treatment Today Z96.642 - Presence of left artificial hip joint Patient Instructions: Scribed for Daniela Trimble PA-C by Vandana Whitt medical information specialist, on 06/22/2023 at 12:19 pm, EST. Coding Level of Care Code Global (58972) Diagnoses History of total left hip replacement Z96.642
== END 2023-06-22 13:35 | disposition home or self-care (01) ==
PROVIDERS: PCP Internal Medicine; Visit Provider Physician Assistant
DX: Z96.642 Presence of left artificial hip joint (principal)
CPT/HCPCS: 99024

== ENCOUNTER → 2023-06-22 12:12 | Outpatient (BNVA) | payer MEDICARE, MEDICAID, SELFPAY | PROVIDERS: PCP Internal Medicine; Visit Provider Physician Assistant | DX: Z96.642 Presence of left artificial hip joint (principal) ==

== ENCOUNTER 2023-07-11 09:46 | Outpatient (AMB) | payer MEDICARE, MEDICAID, SELFPAY ==
--- NOTE | 2023-07-11 09:51 | MHC.OFFVIS ---
Intake Intake Visit Reasons: check incision LT Hip Intake Note: Angeline is a 63 year old female who presents today for a post op wound check appt. left INGRID 06/05/[address] Rodriguez bee pollen [bee stings] Allergy (Severe, Verified 07/11/23 09:51) Anaphylaxis-bee and wasp stings ciprofloxacin [From Cipro] Allergy (Severe, Verified 07/11/23 09:51) Rash, hives crab Allergy (Severe, Verified 07/11/23 09:51) Hives, itching, swelling hydroxychloroquine Allergy (Severe, Verified 07/11/23 09:51) Hives, itching lobster Allergy (Severe, Verified 07/11/23 09:51) Hives, itching, swelling methotrexate Allergy (Severe, Verified 07/11/23 09:51) fatigue, hives, GI upset HPI check incision LT Hip HPI Details 63-year-old female who presents in the office today for a wound check; 19 days status post left total hip arthroplasty, which was performed on 06/05/[address] Moncada. She reports erythema with a raised area distally on the incision site. The patient has a history of hidradenitis suppurativa with frequent abscess formation [facility] Medical History Hx of Diverticular disease Essential hypertension Osteoarthritis GERD (gastroesophageal reflux disease) Fibromyalgia Prediabetes Hyperlipidemia Surgical History Hx of colonoscopy History of surgery on lower extremity Status post total hip replacement, right Family History Mother Myocardial infarction Hypertension Stroke Brother Emphysema lung Father Heart disease S/P CABG x 3 Arthritis Brother Heart disease Social History Household Members: Significant Other Housing: Apartment Are you a primary director medicare sales to a significant other at home: No Do you presently have visiting nurse or other home services: No Alcohol intake: current Alcohol intake frequency: does not drink Patient Tobacco Use Status: Former Tobacco user Quit Date: 05/07/2023 Tobacco use type: Cigarette Years Smoked: 50 Second Hand Smoke Exposure: No Substance Use Type: Marijuana service: No Current occupational status: retired 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 She does have a baseball sized area of what appears to be a hematoma at the distal end of the incision site. No surrounding erythema or drainage. No signs of infection. No tenderness to palpation over the hematoma area. Full hip ROM. NVI. Assessment & Plan Assessment & Plan (1) History of total left hip replacement: Comment: 06/05/2023 DR Code(s): Z96.642 - Presence of left artificial hip joint Plan Ms. Wilks is a 63-year-old female who presents in the office today for a wound check; 19 days status post left total hip arthroplasty, which was performed on 06/05/[address] Moncada. She reports erythema with a raised area distally on the incision site. The patient has a history of hidradenitis suppurativa with frequent abscess formation The patient will continue to work with physical therapy. She will return for her 6 week post operative appointment with Dr. Moncada on 07/20/2023, or sooner if needed. Patient Instructions: Scribed for Daniela Trimble PA-C by Vandana Whitt medical practitioners, on 07/11/2023 at 9:48 am, EST. Coding Level of Care Code Global (20566) Diagnoses History of total left hip replacement Z96.642
== END 2023-07-11 10:07 | disposition home or self-care (01) ==
PROVIDERS: PCP Internal Medicine; Visit Provider Physician Assistant
DX: Z96.642 Presence of left artificial hip joint (principal)
CPT/HCPCS: 99024

== ENCOUNTER → 2023-07-11 09:46 | Outpatient (BNVA) | payer MEDICARE, MEDICAID, SELFPAY | PROVIDERS: PCP Internal Medicine; Visit Provider Physician Assistant | DX: Z47.1 Aftercare following joint replacement surgery (principal); Z96.642 Presence of left artificial hip joint | CPT/HCPCS: 99212 ==

== ENCOUNTER 2023-07-20 11:38 | Outpatient (AMB) | payer MEDICARE, MEDICAID, SELFPAY ==
--- NOTE | 2023-07-20 11:39 | A.OFFVIS_ITS ---
Intake Intake Visit Reasons: PO-LT INGRID 06/05/23 Intake Note: Angeline is a 63 year old female who presents today for a post op appointment s/p left INGRID 06/05/23 with . Patient reports she is doing well, she is using her cane just for support depending on the weather. She does not take any medicines for discomfort. She continues with her physical therapy exercises. Allergies bee pollen [bee stings] Allergy (Severe, Verified 07/20/23 11:44) Anaphylaxis-bee and wasp stings ciprofloxacin [From Cipro] Allergy (Severe, Verified 07/20/23 11:44) Rash, hives crab Allergy (Severe, Verified 07/20/23 11:44) Hives, itching, swelling hydroxychloroquine Allergy (Severe, Verified 07/20/23 11:44) Hives, itching lobster Allergy (Severe, Verified 07/20/23 11:44) Hives, itching, swelling methotrexate Allergy (Severe, Verified 07/20/23 11:44) fatigue, hives, GI upset Medication List - Last Reconciled 07/20/23 by Alcon Moncada MD acetaminophen 650 mg (2 x 325 mg) PO Q6H PRN 30 days amlodipine 10 mg PO DAILY ascorbic iljy-cbqdrdbx-aca 1,000 mg (Emergen-C) ea PO aspirin 325 mg PO Q12H 42 days atorvastatin 20 mg PO DAILY celecoxib 200 mg PO BID 30 days chlorthalidone 12.5 mg PO DAILY cholecalciferol (vitamin D3) (Vitamin D3) 50 mcg PO DAILY diclofenac sodium 1% 1 ea topical QID PRN docusate sodium 100 mg PO BID 30 days Enbrel SureClick (etanercept) 50 mg subcut QWEEK NS epinephrine 0.3 mL IM ONCE PRN gabapentin 100 mg PO BEDTIME 7 days lisinopril 40 mg PO DAILY methocarbamol 750 mg PO TID 7 days walker Folding front wheeled walker [facility] Medical History Hx of Diverticular disease Essential hypertension Osteoarthritis GERD (gastroesophageal reflux disease) Fibromyalgia Prediabetes Hyperlipidemia Surgical History Hx of colonoscopy History of surgery on lower extremity Status post total hip replacement, right Family History Mother Myocardial infarction Hypertension Stroke Brother Emphysema lung Father Heart disease S/P CABG x 3 Arthritis Brother Heart disease Social History Household Members: Significant Other Housing: Apartment Are you a primary director critical care to a significant other at home: No Do you presently have visiting nurse or other home services: No Alcohol intake: current Alcohol intake frequency: does not drink Patient Tobacco Use Status: Former Tobacco user Quit Date: 05/07/2023 Tobacco use type: Cigarette Years Smoked: 50 Second Hand Smoke Exposure: No Substance Use Type: Marijuana service: No Current occupational status: retired 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 Wilks continues to do well after undergoing left total hip replacement surgery on 06/05/2023. She will continue with her physical therapy exercises. She does know to take antibiotics before any dental work. She will contact me prior to her follow-up appointment in 2-3 months should any questions or concerns arise. Feel free to call me at any time should questions regarding her orthopedic management arise. Coding Level of Care Code Global (55253) Diagnoses History of total left hip replacement Z96.642
== END 2023-07-20 12:13 | disposition home or self-care (01) ==
PROVIDERS: PCP Internal Medicine; Visit Provider Orthopaedic Surgery
DX: Z96.642 Presence of left artificial hip joint (principal)
CPT/HCPCS: 99024

== ENCOUNTER → 2023-07-20 11:38 | Outpatient (BNVA) | payer MEDICARE, SELFPAY | PROVIDERS: PCP Internal Medicine; Visit Provider Orthopaedic Surgery | DX: Z47.1 Aftercare following joint replacement surgery (principal); Z96.642 Presence of left artificial hip joint | CPT/HCPCS: 99212 ==

== ENCOUNTER 2023-08-14 08:10 | Outpatient (AMB) | payer MEDICARE, MEDICAID, SELFPAY ==
--- NOTE | 2023-08-14 08:15 | MHC.OFFVIS ---
Intake Vital Signs 08/14/23 08:21 Height 5 ft Weight 174 lb 9.698 oz BMI 34.1 BP 124/76 Blood Pressure Location Rt brachial Position Sitting Pulse 90 Pulse Source Pulse Oximeter Temp 97.2 F Temp Source Skin Pulse Oximetry (%) 96 Oxygen Delivery Method Room Air Intake Visit Reasons: OA Intake Note: Pt last seen 05/04/23 presents today for follow up and test results. She did not complete labs. S/p left hip replacement Trial Mgr Required: No Accompanied by: Self / Same As Patient Allergies bee pollen [bee stings] Allergy (Severe, Verified 08/14/23 08:23) Anaphylaxis-bee and wasp stings ciprofloxacin [From Cipro] Allergy (Severe, Verified 08/14/23 08:23) Rash, hives crab Allergy (Severe, Verified 08/14/23 08:23) Hives, itching, swelling hydroxychloroquine Allergy (Severe, Verified 08/14/23 08:23) Hives, itching lobster Allergy (Severe, Verified 08/14/23 08:23) Hives, itching, swelling methotrexate Allergy (Severe, Verified 08/14/23 08:23) fatigue, hives, GI upset Medication List - Last Reconciled 08/14/23 by Fernando Hernandez MD acetaminophen 650 mg (2 x 325 mg) PO Q6H PRN 30 days amlodipine 10 mg PO DAILY ascorbic [id number] 1,000 mg (Emergen-C) ea PO aspirin 325 mg PO Q12H 42 days atorvastatin 20 mg PO DAILY celecoxib 200 mg PO BID 30 days chlorthalidone 12.5 mg PO DAILY cholecalciferol (vitamin D3) (Vitamin D3) 50 mcg PO DAILY diclofenac sodium 1% 1 ea topical QID PRN docusate sodium 100 mg PO BID 30 days Enbrel SureClick (etanercept) 50 mg subcut QWEEK NS epinephrine 0.3 mL IM ONCE PRN gabapentin 100 mg PO BEDTIME 7 days lisinopril 40 mg PO DAILY methocarbamol 750 mg PO TID 7 days oxycodone 5 mg PO Q8H PRN 7 days walker Folding front wheeled walker HPI HPI Comments History of Present Illness Details 62-year-old female with seronegative RA returns for follow-up. She had her left hip replaced 2 months ago and feeling better overall. Much more active. She states that she continues to have intermittent flare-ups of pain in her hands and ankles. She has not started Enbrel as she was in the process of getting her left hip replaced. She states that she has done all her follow-up visits and she was told that the wound is healing well with no signs of infection. She is doing PT. he states that she has been having allergies with nasal congestion, cough, sore throat. She was evaluated by her PCP and told no specific treatment was needed. She has not had a fever. 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 Patient stated that since 2004 she has had right hip pain. She ultimately had a right hip replacement 2008. Over the years patient has had intermittent joint pain and swelling including elbow, hands, knuckles, wrists, ankles, feet, left hip. She states that is her most bothersome pain at this point is left hip pain and stiffness. The pain and stiffness last all day. Also last week she had swelling of her left elbow that lasted about a month then self-resolved. She also had pain and swelling of her hands and knuckles that lasted a few days then self-resolved. Patient takes acetaminophen which provides little relief. She is unaware of any family history of autoimmune rheumatic disease. There is no history of DVT/PE. 2-3 years ago patient was evaluated by educational speech language clinician Dr. Dee drake and was started on hydroxychloroquine. Patient took it for 2 weeks but developed severe hives and stopped it PFSH Medical History Hx of Diverticular disease Essential hypertension Osteoarthritis GERD (gastroesophageal reflux disease) Fibromyalgia Prediabetes Hyperlipidemia Surgical History Status post left hip replacement Hx of colonoscopy History of surgery on lower extremity Status post total hip replacement, right Family History Mother Myocardial infarction Hypertension Stroke Brother Emphysema lung Father Heart disease S/P CABG x 3 Arthritis Brother Heart disease Social History Household Members: Significant Other Housing: Apartment Are you a primary healthcare administrative assistant to a significant other at home: No Do you presently have visiting nurse or other home services: No Alcohol intake: current Alcohol intake frequency: does not drink Patient Tobacco Use Status: Former Tobacco user Quit Date: 05/07/2023 Tobacco use type: Cigarette Years Smoked: 50 Second Hand Smoke Exposure: No Substance Use Type: Marijuana service: No Current occupational status: retired 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 Review of Systems [facility] Reports arthralgias, Reports joint swelling and Reports stiffness Physical Exam Vital Signs: Last Vital Signs Temp 97.2 F 08/14/23 08:21 Pulse 90 08/14/23 08:21 BP 124/76 08/14/23 08:21 Pulse Ox 96 08/14/23 08:21 Oxygen Delivery Method Room Air 08/14/23 08:21 BMI result Body Mass Index 34.1 Const General: cooperative, healthy appearing and comfortable Nutritional Appearance: obese Orientation/consciousness: patient oriented x3 Limitations: no limitations HEENT Head: Yes normocephalic and Yes atraumatic Resp Effort & Inspection: normal respiratory effort and able to speak in complete sentences GI Inspection: No distended Palpation (GI): Soft to palpation and nontender Back/Spine/Pelvis Other: Significant kyphosis Neuro General: patient oriented x3 Extrem Other: Osteoarthritic changes of both hands with Heberden's and Jewels's nodes Bilateral 1st CMC joint squaring No swollen or tender joints today in both hands today Bilateral 1st CMC joint tenderness Some subluxation of left 1st CMC joint Normal nailfold capillaroscopy Tenderness upon palpation of the common extensor origin of the lateral epicondyle Normal range of motion of both shoulders Left hip pain with flexion adduction and internal rotation Bilateral knee pain with full flexion Bilateral bunion Right 1st MTP tenderness Negative MTP squeeze test bilaterally Results Reviewed Results Reviewed: [address] [address] XRay Report Signed Patient: Angeline Wilks MR#: [id number] : 1960 Acct:[id number] Age/Sex: 62 / F ADM Date: 12/06/22 Loc: HO.LAB Attending Dr: Fernando Hernandez MD Ordering Physician: Fernando Hernandez MD Date of Service: 12/06/22 Procedure(s): XR hip LT min 2V Accession Number(s): [id number] cc: Fernando Hernandez MD~ EXAMINATION: XR HIP, LEFT XR HAND AND WRIST, BILATERAL XR FOOT, BILATERAL XR ANKLE, BILATERAL CLINICAL INFORMATION: Rheumatoid arthritis. COMPARISON: None available. TECHNIQUE: 2 views left hip, 4 views right and left hand and wrist, 3 views of right and left feet, and 2 views of right and left ankles. FINDINGS: LEFT HIP: There is no evidence of acute fracture or dislocation of the left hip. There is significant loss of left hip joint space in a concentric manner with sclerosis and subchondral cyst formation. No femoral head deformity is seen. There is prominent collar spurring present. There is spurring involving the greater trochanter. Prominent vascular calcifications are noted. Subchondral cysts are seen involving the pubic symphysis. RIGHT FOOT: There is no evidence of acute fracture or dislocation of the right foot. There appears be osteopenia present. There is mild bunion formation with joint space narrowing seen 1st metatarsophalangeal joint. There appear to be small erosions involving the heads of the 2nd through 5th metatarsals. There appear to be erosions involving the base of the 2nd metatarsal. There is some degenerative narrowing with minor spurring seen involving the tarsal navicular joint and tarsal metatarsal joints. Dorsal beaking is seen involving the tarsal bones. Prominent plantar calcaneal spur present. RIGHT ANKLE: There is osteopenia present. No acute fracture or dislocation. Ankle mortise appears intact with talar tilt of approximately 8 degrees. No definite erosive changes are appreciated. Left ankle: There is no evidence of acute fracture or dislocation of the left ankle. Left ankle mortise appears intact. LEFT FOOT: There is generalized osteopenia present. There is severe degenerative change of the 1st metatarsophalangeal joint with loss of joint space and articular irregularity and deformity. Subchondral cyst formation is evident with prominent spurring. There are some erosions seen involving the 2nd through 5th metatarsal heads. There is some degenerative change seen involving the metatarsophalangeal joints 1st through 3rd digits. Prominent plantar spur present. Dorsal beaking of the talar bone is noted. RIGHT HAND AND WRIST: There is diffuse osteopenia present most prominent in the periarticular regions but generalized. There is narrowing of the triscaphe joint with severe narrowing of the 1st and 2nd carpometacarpal joints with loss of joint space, sclerosis, subchondral cyst formation, and prominent spurring. There is deformity of the multangulars. There appear to be small erosions versus subchondral cysts involving the heads of the metacarpal bones. There is some degenerative joint space narrowing with marginal irregularity involving the 2nd metatarsophalangeal joint. There is degenerative change seen with some joint space narrowing and spurring about the distal interphalangeal joints 2nd to the largest extent. There is some mild soft tissue prominence about the first and second metacarpophalangeal joints. LEFT HAND AND WRIST: There is generalized osteopenia. There is severe degenerative change of the 1st carpometacarpal joint with loss of joint space and marginal spurring and some deformity of the multangulars. There is loss of the triscaphe joint space. No acute fracture or dislocation is evident. There is some degenerative change with joint space narrowing involving the 1st metacarpophalangeal joint. There is degenerative narrowing and sclerosis involving the 2nd distal interphalangeal joint. There are some erosions seen involving the 2nd and 5th metacarpal heads. There is degenerative change seen involving the 5th proximal interphalangeal joint. There is some mild soft tissue prominence seen about the second metacarpophalangeal joint. XR/XR hip LT min 2V IMPRESSION: Diffuse osteopenia. ? Severe degenerative change of the left hip joint in a concentric fashion, as described, which is consistent with the appearance of rheumatoid arthritis rather than osteoarthritis which tends to be more focal regions of the joint space. ? Combination of findings of erosive and degenerative arthritides, as described. Assessment & Plan Assessment & Plan (1) Seronegative rheumatoid arthritis: Comment: -ve RF-ve CCP HCQ years ago DC due to allergic reaction MTX 02/2023 DC due to fatigue & hives Code(s): M06.00 - Rheumatoid arthritis without rheumatoid factor, unspecified site Plan: This is a 63-year-old female with seronegative RA who presents for follow-up. Patient continues to get intermittent swollen joints, morning stiffness. Continues to have active disease. Enbrel was approved but has not been delivered as patient was in the process of left hip replacement. She is now having some allergy symptoms with or throat, nasal congestion, cough. Advised patient to start Enbrel after 1 or 2 weeks provided that her current allergic symptoms resolve. Labs before next visit in 3 months (2) Osteopenia: Code(s): M85.80 - Other specified disorders of bone density and structure, unspecified site Qualifiers: Osteopenia location: multiple sites Qualified Code(s): M85.89 - Other specified disorders of bone density and structure, multiple sites Plan: DEXA 02/2023 showed osteopenia with a low FRAX score. But I do not believe smoking and rheumatoid arthritis were taken into consideration. If smoking and rheumatoid arthritis are added to her risk factors her FRAX score would qualify her for anti resorptive therapy. Will discuss further next visit (3) Osteoarthritis of left hip: Code(s): M16.12 - Unilateral primary osteoarthritis, left hip Qualifiers: Osteoarthritis type: other secondary Qualified Code(s): M16.7 - Other unilateral secondary osteoarthritis of hip Plan: S/p left hip replacement Plan I spent 26 minutes reviewing patient's chart, evaluating patient, counseling patient and documenting in the chart Orders: Orders Complete Blood Count Auto Diff 3 Months M06.00 - Rheumatoid arthritis without rheumatoid factor, unspecified site Comprehensive Met. Panel 3 Months M06.00 - Rheumatoid arthritis without rheumatoid factor, unspecified site C Reactive Protein 3 Months M06.00 - Rheumatoid arthritis without rheumatoid factor, unspecified site Erythrocyte Sedimentation Rate 3 Months M06.00 - Rheumatoid arthritis without rheumatoid factor, unspecified site Coding Level of Care Code Est Pt Level 4 (35381) Diagnoses Seronegative rheumatoid arthritis M06.00 Osteopenia of multiple sites M85.89 Osteopenia location: multiple sites Other secondary osteoarthritis of left hip M16.7 Osteoarthritis type: other secondary
[2023-08-14 08:21] VITALS: BP 124/76; PULSE 90; TEMP 36.2; O2SAT 96; BMI 34.1
== END 2023-08-14 08:43 | disposition home or self-care (01) ==
PROVIDERS: PCP Internal Medicine; Visit Provider Student in an Organized Health Care Education/Training Program
DX: M06.00 Rheumatoid arthritis without rheumatoid factor, unspecified site (principal); M85.89 Other specified disorders of bone density and structure, multiple sites; M16.7 Other unilateral secondary osteoarthritis of hip
CPT/HCPCS: 99214

== ENCOUNTER → 2023-08-14 08:10 | Outpatient (BNVA) | payer MEDICARE, MEDICAID, SELFPAY | PROVIDERS: PCP Internal Medicine; Visit Provider Student in an Organized Health Care Education/Training Program | DX: M85.89 Other specified disorders of bone density and structure, multiple sites (principal); M16.7 Other unilateral secondary osteoarthritis of hip; M06.00 Rheumatoid arthritis without rheumatoid factor, unspecified site | CPT/HCPCS: 99212 ==

== ENCOUNTER 2023-08-24 14:22 | Outpatient (REF) | payer MEDICARE, MEDICAID, SELFPAY ==
[2023-08-24 14:31] LABS: MANUAL DIFF FLAG NO
[2023-08-24 14:35] LABS: Basophils Absolute Auto 0.1 X10*3/uL (0.0-0.2); Basophils Percent Auto 0.4 % (0-2); Eosinophils Absolute Auto 0.2 X10*3/uL (0.0-0.4); Eosinophils Percent Auto 1.3 % (0-4); Hematocrit 43.9 % (37.0-47.0); Hemoglobin 14.9 g/dl (12.0-16.0); Imm Gran Abs Auto 0.04 X10*3/uL (0.00-0.03); Imm Gran Pct Auto 0.3 % (0.0-0.4); Lymphocytes Absolute Auto 2.7 X10*3/uL (1.2-4.9); Lymphocytes Percent Auto 23.1 % (20-40); Mean Corpuscular HGB Conc 33.9 g/dl (31.0-35.0); Mean Corpuscular Volume 91.3 fL (80.0-98.0); Monocytes Absolute Auto 0.7 X10*3/uL (0.1-1.2); Neutrophils Percent Auto 68.9 % (45-73); Platelet Count 374 X10*3/uL (160-400); Red Blood Count 4.81 X10*6/uL (4.20-5.50); Red Cell Distribution Width 14.2 % (11.0-16.0); White Blood Count 11.6 X10*3/uL (4.8-10.8)
[2023-08-24 15:16] LABS: Erythrocyte Sedimentation Rate 9 MM/HR (0-20)
[2023-08-24 15:47] LABS: Alanine Aminotransferase 15 U/L (0-31); Albumin Level 4.6 g/dL (3.5-5.0); Alkaline Phosphatase 119 U/L (39-117); Anion Gap 15 (12-20); Aspartate Amino Transferase 17 U/L (5-31); Bilirubin Total 0.3 mg/dL (0.0-1.0); Blood Urea Nitrogen 15 mg/dL (9-16); C Reactive Protein 0.19 mg/dL (< or = 0.50); Calcium 10.1 mg/dL (8.4-10.2); Carbon Dioxide 28 mmol/L (22-29); Chloride 99 mmol/L (96-108); Estimated Glomerular Filt Rate > 60; Glucose Random 86 mg/dL (60-115); Potassium 3.5 mmol/L (3.3-5.1); Sodium 138 mmol/L (135-145); Total Protein 8.1 g/dL (6.5-8.0)
== END 2023-08-24 14:23 | disposition home or self-care (01) ==
LOC: HO.LAB 14:22
PROVIDERS: PCP Internal Medicine; Visit Provider Student in an Organized Health Care Education/Training Program
DX: M06.9 Rheumatoid arthritis, unspecified (principal)
CPT/HCPCS: 36415; 80053; 85025; 85652; 86140

== ENCOUNTER 2023-09-20 13:26 | Outpatient (AMB) | payer MEDICARE, MEDICAID, SELFPAY ==
[2023-09-20 13:27] VITALS: BMI 34.0
--- NOTE | 2023-09-20 13:27 | MHC.OFFVIS ---
Intake Vital Signs 09/20/23 13:27 Height 5 ft Weight 174 lb BMI 34.0 Intake Visit Reasons: PO-LT INGRID 06/05/23 Intake Note: Angeline is a 63 year old female who presents today for a post op appointment s/p left INGRID 06/05/23 . Patient reports she is feeling great. She did some physical therapy and is doing home exercises. Stairs are still a little hard and she has very little soreness and stiffness. She is no longer taking medicine for her pain. She no longer walks with an assistive device. Allergies bee pollen [bee stings] Allergy (Severe, Verified 09/20/23 13:32) Anaphylaxis-bee and wasp stings ciprofloxacin [From Cipro] Allergy (Severe, Verified 09/20/23 13:32) Rash, hives crab Allergy (Severe, Verified 09/20/23 13:32) Hives, itching, swelling hydroxychloroquine Allergy (Severe, Verified 09/20/23 13:32) Hives, itching lobster Allergy (Severe, Verified 09/20/23 13:32) Hives, itching, swelling methotrexate Allergy (Severe, Verified 09/20/23 13:32) fatigue, hives, GI upset Medication List - Last Reconciled 09/20/23 by Alcon Moncada MD acetaminophen 650 mg (2 x 325 mg) PO Q6H PRN 30 days amlodipine 10 mg PO DAILY ascorbic [id number] 1,000 mg (Emergen-C) ea PO aspirin 325 mg PO Q12H 42 days atorvastatin 20 mg PO DAILY celecoxib 200 mg PO BID 30 days chlorthalidone 12.5 mg PO DAILY cholecalciferol (vitamin D3) (Vitamin D3) 50 mcg PO DAILY diclofenac sodium 1% 1 ea topical QID PRN docusate sodium 100 mg PO BID 30 days Enbrel SureClick (etanercept) 50 mg subcut QWEEK NS epinephrine 0.3 mL IM ONCE PRN gabapentin 100 mg PO BEDTIME 7 days lisinopril 40 mg PO DAILY methocarbamol 750 mg PO TID 7 days oxycodone 5 mg PO Q8H PRN 7 days walker Folding front wheeled walker [facility] Medical History Hx of Diverticular disease Essential hypertension Osteoarthritis GERD (gastroesophageal reflux disease) Fibromyalgia Prediabetes Hyperlipidemia Surgical History Status post left hip replacement Hx of colonoscopy History of surgery on lower extremity Status post total hip replacement, right Family History Mother Myocardial infarction Hypertension Stroke Brother Emphysema lung Father Heart disease S/P CABG x 3 Arthritis Brother Heart disease Social History Household Members: Significant Other Housing: Apartment Are you a primary dog day care attendant to a significant other at home: No Do you presently have visiting nurse or other home services: No Alcohol intake: current Alcohol intake frequency: does not drink Patient Tobacco Use Status: Former Tobacco user Quit Date: 05/07/2023 Tobacco use type: Cigarette Years Smoked: 50 Second Hand Smoke Exposure: No Substance Use Type: Marijuana service: No Current occupational status: retired 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 Physical Exam Vital Signs: BMI result Body Mass Index 34.0 Const Other: Well-nourished well-developed very friendly female awake alert and oriented x3 in no acute distress Extrem Other: Bilateral lower extremity examination shows good capillary refill, no skin lesions noted, normal sensation light touch Left hip examination shows that the surgical incision is well healed, no erythema, minimal discomfort with range of motion, no tenderness over her bursa Assessment & Plan Assessment & Plan (1) History of total left hip replacement: Comment: 06/05/2023 Code(s): Z96.642 - Presence of left artificial hip joint Plan Ms. Wilks continues to do very well after undergoing left total hip replacement surgery on June 05, 2023. She will continue with her home exercise program. She does know to take antibiotics before any dental work. She will contact me prior to her follow-up appointment in 3 months should any questions or concerns arise. Feel free to call me at any time should questions regarding her orthopedic management arise. I spent 19 minutes in reviewing the patient's records and imaging studies, seeing the patient and documenting in the medical record. Coding Level of Care Code Est Pt Level 2 (99405) Diagnoses History of total left hip replacement Z96.642
== END 2023-09-20 13:44 | disposition home or self-care (01) ==
PROVIDERS: PCP Internal Medicine; Visit Provider Orthopaedic Surgery
DX: Z47.1 Aftercare following joint replacement surgery (principal); Z96.642 Presence of left artificial hip joint
CPT/HCPCS: 99212

== ENCOUNTER → 2023-09-20 13:26 | Outpatient (BNVA) | payer MEDICARE, MEDICAID, SELFPAY | PROVIDERS: PCP Internal Medicine; Visit Provider Orthopaedic Surgery | DX: Z47.1 Aftercare following joint replacement surgery (principal); Z96.642 Presence of left artificial hip joint | CPT/HCPCS: 99212 ==

== ENCOUNTER 2023-11-09 12:04 | Outpatient (REF) | payer MEDICARE, MEDICAID, SELFPAY ==
[2023-11-09 12:52] LABS: MANUAL DIFF FLAG NO
[2023-11-09 12:59] LABS: Basophils Absolute Auto 0.1 X10*3/uL (0.0-0.2); Basophils Percent Auto 0.6 % (0-2); Eosinophils Absolute Auto 0.1 X10*3/uL (0.0-0.4); Hematocrit 42.8 % (37.0-47.0); Hemoglobin 14.4 g/dl (12.0-16.0); Imm Gran Abs Auto 0.03 X10*3/uL (0.00-0.03); Imm Gran Pct Auto 0.3 % (0.0-0.4); Lymphocytes Absolute Auto 2.2 X10*3/uL (1.2-4.9); Lymphocytes Percent Auto 25.4 % (20-40); Mean Corpuscular HGB Conc 33.6 g/dl (31.0-35.0); Mean Corpuscular Volume 92.2 fL (80.0-98.0); Mean Platelet Volume 8.3 fL (9.4-12.3); Monocytes Absolute Auto 0.8 X10*3/uL (0.1-1.2); Monocytes Percent Auto 9.1 % (2-11); Neutrophils Absolute Auto 5.5 x10*3/uL (2.0-8.3); Neutrophils Percent Auto 63.6 % (45-73); Platelet Count 329 X10*3/uL (160-400); Red Blood Count 4.64 X10*6/uL (4.20-5.50); Red Cell Distribution Width 14.6 % (11.0-16.0); White Blood Count 8.7 X10*3/uL (4.8-10.8)
[2023-11-09 13:27] LABS: Alanine Aminotransferase 14 U/L (0-31); Albumin Level 4.3 g/dL (3.5-5.0); Alkaline Phosphatase 107 U/L (39-117); Anion Gap 10 (12-20); Aspartate Amino Transferase 16 U/L (5-31); Bilirubin Total 0.6 mg/dL (0.0-1.0); Blood Urea Nitrogen 14 mg/dL (9-16); Calcium 9.6 mg/dL (8.4-10.2); Carbon Dioxide 28 mmol/L (22-29); Chloride 102 mmol/L (96-108); Estimated Glomerular Filt Rate > 60; Glucose Random 102 mg/dL (60-115); Potassium 3.8 mmol/L (3.3-5.1); Sodium 136 mmol/L (135-145); Total Protein 7.3 g/dL (6.5-8.0)
[2023-11-09 13:44] LABS: Erythrocyte Sedimentation Rate 6 MM/HR (0-20)
== END 2023-11-09 12:05 | disposition home or self-care (01) ==
LOC: HO.10HDL 12:04
PROVIDERS: Visit Provider Student in an Organized Health Care Education/Training Program
DX: M06.00 Rheumatoid arthritis without rheumatoid factor, unspecified site (principal)
CPT/HCPCS: 36415; 80053; 85025; 85652; 86140

== ENCOUNTER 2023-11-13 09:37 | Outpatient (AMB) | payer MEDICARE, MEDICAID, SELFPAY ==
[2023-11-13 10:05] VITALS: BP 124/72; PULSE 87; O2SAT 96; BMI 35.1
--- NOTE | 2023-11-13 10:05 | A.OFFVIS_ITS ---
Vital Signs 11/13/23 10:05 Height 5 ft Weight 179 lb 14.355 oz BMI 35.1 BP 124/72 Blood Pressure Location Rt brachial Position Sitting Pulse 87 Pulse Source Pulse Oximeter Pulse Oximetry (%) 96 Oxygen Delivery Method Room Air Intake Visit Reasons: RA Intake Note: Patient last seen 08/14/23 presents today for follow up and test results. 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: No Accompanied by: Self / Same As Patient Allergies bee pollen [bee stings] Allergy (Severe, Verified 11/13/23 10:10) Anaphylaxis-bee and wasp stings ciprofloxacin [From Cipro] Allergy (Severe, Verified 11/13/23 10:10) Rash, hives crab Allergy (Severe, Verified 11/13/23 10:10) Hives, itching, swelling hydroxychloroquine Allergy (Severe, Verified 11/13/23 10:10) Hives, itching lobster Allergy (Severe, Verified 11/13/23 10:10) Hives, itching, swelling methotrexate Allergy (Severe, Verified 11/13/23 10:10) fatigue, hives, GI upset Medication List - Last Reconciled 11/13/23 by Fernando Hernandez MD acetaminophen 650 mg (2 x 325 mg) PO Q6H PRN 30 days amlodipine 10 mg PO DAILY ascorbic [id number] 1,000 mg (Emergen-C) ea PO aspirin 325 mg PO Q12H 42 days atorvastatin 20 mg PO DAILY celecoxib 200 mg PO BID 30 days chlorthalidone 12.5 mg PO DAILY cholecalciferol (vitamin D3) (Vitamin D3) 50 mcg PO DAILY diclofenac sodium 1% 1 ea topical QID PRN docusate sodium 100 mg PO BID 30 days epinephrine 0.3 mL IM ONCE PRN gabapentin 100 mg PO BEDTIME 7 days lisinopril 40 mg PO DAILY methocarbamol 750 mg PO TID 7 days oxycodone 5 mg PO Q8H PRN 7 days walker Folding front wheeled walker HPI Comments Details: 63-year-old female with seronegative RA returns for follow-up. She states that she took Enbrel for 5-6 doses and believes it did help her hands and feet but she was having recurrent bursitis episode affecting her left knee. She also has been having some stomach upset that she attributes to Enbrel. She also has history of hidradenitis suppurativa since her teen years and had a couple of lesions drained from her axilla and groin. She states that her hidradenitis flared up she started Enbrel. She had a lesion on her left groin that was draining pus and she was applying antibiotic cream. She also had recurrent lesions on her face. She does not recall any recent dermatology evaluation for that. 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 Patient stated that since 2004 she has had right hip pain. She ultimately had a right hip replacement 2008. Over the years mikaela brooke has had intermittent joint pain and swelling including elbow, hands, knuckles, wrists, ankles, feet, left hip. She states that is her most bothersome pain at this point is left hip pain and stiffness. The pain and stiffness last all day. Also last week she had swelling of her left elbow that lasted about a month then self-resolved. She also had pain and swelling of her hands and knuckles that lasted a few days then self-resolved. Patient takes acetaminophen which provides little relief. She is unaware of any family history of autoimmune rheumatic disease. There is no history of DVT/PE. 2-3 years ago patient was evaluated by labor contractor Dr. Dee drake and was started on hydroxychloroquine. Patient took it for 2 weeks but developed severe hives and stopped it PFS Medical History (Updated 11/13/23 @ 10:39 by Fernando Hernandez MD) Hidradenitis suppurativa Hx of Diverticular disease Essential hypertension Osteoarthritis GERD (gastroesophageal reflux disease) Fibromyalgia Prediabetes Hyperlipidemia Surgical History Status post left hip replacement Hx of colonoscopy History of surgery on lower extremity Status post total hip replacement, right Family History Mother Myocardial infarction Hypertension Stroke Brother Emphysema lung Father Heart disease S/P CABG x 3 Arthritis Brother Heart disease Social History Household Members: Significant Other Housing: Apartment Are you a primary intensive care nurse to a significant other at home: No Do you presently have visiting nurse or other home services: No Alcohol intake: current Alcohol intake frequency: does not drink Patient Tobacco Use Status: Former Tobacco user Quit Date: 05/07/2023 Tobacco use type: Cigarette Years Smoked: 50 Second Hand Smoke Exposure: No Substance Use Type: Marijuana service: No Current occupational status: retired 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 Review of Systems GI Details: GI upset Musc Reports arthralgias, Reports joint swelling and Reports stiffness Skin/Breast Reports lesions and Reports non-healing lesions Physical Exam Vital Signs: Last Vital Signs Pulse 87 11/13/23 10:05 BP 124/72 11/13/23 10:05 Pulse Ox 96 11/13/23 10:05 Oxygen Delivery Method Room Air 11/13/23 10:05 BMI result Body Mass Index 35.1 Const General: cooperative, healthy appearing and comfortable Nutritional Appearance: obese Orientation/consciousness: patient oriented x3 Limitations: no limitations HEENT Head: Yes normocephalic and Yes atraumatic Resp Effort & Inspection: normal respiratory effort and able to speak in complete sentences Back/Spine/Pelvis Other: Significant kyphosis Neuro General: patient oriented x3 Extrem Other: Osteoarthritic changes of both hands with Heberden's and Jewels's nodes Bilateral 1st CMC joint squaring No swollen or tender joints today in both hands today Bilateral 1st CMC joint tenderness Some subluxation of left 1st CMC joint Normal nailfold capillaroscopy Bilateral knee pain with full flexion Bilateral bunion Results Reviewed Results Reviewed: [address] [address] XRay Report Signed Patient: Angeline Wilks MR#: [id number] : 1960 Acct:[id number] Age/Sex: 62 / F ADM Date: 12/06/22 Loc: [facility] Attending Dr: Fernando Hernandez MD Ordering Physician: Fernando Hernandez MD Date of Service: 12/06/22 Procedure(s): XR hip LT min 2V Accession Number(s): [id number] cc: Fernando Hernandez MD~ EXAMINATION: XR HIP, LEFT XR HAND AND WRIST, BILATERAL XR FOOT, BILATERAL XR ANKLE, BILATERAL CLINICAL INFORMATION: Rheumatoid arthritis. COMPARISON: None available. TECHNIQUE: 2 views left hip, 4 views right and left hand and wrist, 3 views of right and left feet, and 2 views of right and left ankles. FINDINGS: LEFT HIP: There is no evidence of acute fracture or dislocation of the left hip. There is significant loss of left hip joint space in a concentric manner with sclerosis and subchondral cyst formation. No femoral head deformity is seen. There is prominent collar spurring present. There is spurring involving the greater trochanter. Prominent vascular calcifications are noted. Subchondral cysts are seen involving the pubic symphysis. RIGHT FOOT: There is no evidence of acute fracture or dislocation of the right foot. There appears be osteopenia present. There is mild bunion formation with joint space narrowing seen 1st metatarsophalangeal joint. There appear to be small erosions involving the heads of the 2nd through 5th metatarsals. There appear to be erosions involving the base of the 2nd metatarsal. There is some degenerative narrowing with minor spurring seen involving the tarsal navicular joint and tarsal metatarsal joints. Dorsal beaking is seen involving the tarsal bones. Prominent plantar calcaneal spur present. RIGHT ANKLE: There is osteopenia present. No acute fracture or dislocation. Ankle mortise appears intact with talar tilt of approximately 8 degrees. No definite erosive changes are appreciated. Left ankle: There is no evidence of acute fracture or dislocation of the left ankle. Left ankle mortise appears intact. LEFT FOOT: There is generalized osteopenia present. There is severe degenerative change of the 1st metatarsophalangeal joint with loss of joint space and articular irregularity and deformity. Subchondral cyst formation is evident with prominent spurring. There are some erosions seen involving the 2nd through 5th metatarsal heads. There is some degenerative change seen involving the metatarsophalangeal joints 1st through 3rd digits. Prominent plantar spur present. Dorsal beaking of the talar bone is noted. RIGHT HAND AND WRIST: There is diffuse osteopenia present most prominent in the periarticular regions but generalized. There is narrowing of the triscaphe joint with severe narrowing of the 1st and 2nd carpometacarpal joints with loss of joint space, sclerosis, subchondral cyst formation, and prominent spurring. There is deformity of the multangulars. There appear to be small erosions versus subchondral cysts involving the heads of the metacarpal bones. There is some degenerative joint space narrowing with marginal irregularity involving the 2nd metatarsophalangeal joint. There is degenerative change seen with some joint space narrowing and spurring about the distal interphalangeal joints 2nd to the largest extent. There is some mild soft tissue prominence about the first and second metacarpophalangeal joints. LEFT HAND AND WRIST: There is generalized osteopenia. There is severe degenerative change of the 1st carpometacarpal joint with loss of joint space and marginal spurring and some deformity of the multangulars. There is loss of the triscaphe joint space. No acute fracture or dislocation is evident. There is some degenerative change with joint space narrowing involving the 1st metacarpophalangeal joint. There is degenerative narrowing and sclerosis involving the 2nd distal interphalangeal joint. There are some erosions seen involving the 2nd and 5th metacarpal heads. There is degenerative change seen involving the 5th proximal interphalangeal joint. There is some mild soft tissue prominence seen about the second metacarpophalangeal joint. XR/XR hip LT min 2V IMPRESSION: Diffuse osteopenia. ? Severe degenerative change of the left hip joint in a concentric fashion, as described, which is consistent with the appearance of rheumatoid arthritis rather than osteoarthritis which tends to be more focal regions of the joint space. ? Combination of findings of erosive and degenerative arthritides, as described. Assessment & Plan Assessment & Plan (1) Seronegative rheumatoid arthritis: Comment: -ve RF-ve CCP HCQ years ago DC due to allergic reaction MTX 02/2023 DC due to fatigue & hives Enbrel 09/2023-DC 10/2023 GI upset and hidradenitis suppurativa Code(s): M06.00 - Rheumatoid arthritis without rheumatoid factor, unspecified site Category: Medical Plan: This is a 63-year-old female with seronegative RA who presents for follow-up. Patient took Enbrel for 5-6 doses and some improvement in the pain in her hands and feet however kept having recurrent bursitis affecting left knee, had GI upset and flare-up of her hidradenitis suppurativa. Will DC Enbrel at this point. Advised patient to establish care with a shell machine operator for her hidradenitis suppurativa Will monitor patient off DMARDs. Follow-up in 3 months (2) Osteopenia: Code(s): M85.80 - Other specified disorders of bone density and structure, unspecified site Category: Medical Qualifiers: Osteopenia location: multiple sites Qualified Code(s): M85.89 - Other specified disorders of bone density and structure, multiple sites Plan: DEXA 02/2023 showed osteopenia FRAX score for left hip fracture is 3.7% at the hip. Patient qualifies for antiresorptive therapy. Discussed risks and benefits of alendronate. Patient agreed to proceed. Start alendronate 70 mg weekly Continue adequate dairy intake, and vitamin-D supplementation (3) Hidradenitis suppurativa: Code(s): L73.2 - Hidradenitis suppurativa Category: Medical Plan: Establish care with shell machine operator Plan I spent 26 minutes reviewing patient's chart, evaluating patient, counseling patient and documenting in the chart Medications: New alendronate Take 1 tab once weekly, 1st thing in the morning, on an empty stomach, with a large glass of water (at least 6 oz) and stay upright for 30 minutes 70 mg PO QWEEK 12 tabs 0RF
== END 2023-11-13 10:36 | disposition home or self-care (01) ==
PROVIDERS: PCP Internal Medicine; Visit Provider Student in an Organized Health Care Education/Training Program
DX: M06.00 Rheumatoid arthritis without rheumatoid factor, unspecified site (principal); M85.89 Other specified disorders of bone density and structure, multiple sites; L73.2 Hidradenitis suppurativa
CPT/HCPCS: 99214

== ENCOUNTER → 2023-11-13 10:06 | Outpatient (BNVA) | payer MEDICARE, MEDICAID, SELFPAY | PROVIDERS: PCP Internal Medicine; Visit Provider Student in an Organized Health Care Education/Training Program | DX: M06.00 Rheumatoid arthritis without rheumatoid factor, unspecified site (principal); M85.89 Other specified disorders of bone density and structure, multiple sites; L73.2 Hidradenitis suppurativa | CPT/HCPCS: 99212 ==

== ENCOUNTER 2023-12-19 07:25 | Outpatient (REF) | payer MEDICARE, MEDICAID, SELFPAY ==
--- NOTE | ~2023-12-19 | XR_ITS ---
EXAMINATION: XR HIP, LEFT CLINICAL INFORMATION: Pain in left hip. COMPARISON: 06/05/2023 pelvis. TECHNIQUE: 2 AP views of the pelvis and a frog lateral view of the left hip. FINDINGS: Redemonstration of a left total hip prosthesis. Cerclage wire noted around the proximal left femur. Hardware appears intact. Alignment maintained. Vascular calcifications. Right total hip arthroplasty appears stable on the 2 AP views provided. XR/XR hip LT min 2V IMPRESSION: Left total hip prosthesis appears intact. Alignment maintained.
== END 2023-12-19 07:26 | disposition home or self-care (01) ==
LOC: HO.HOSX 07:25
PROVIDERS: Visit Provider Orthopaedic Surgery
DX: M25.552 Pain in left hip (principal); Z96.642 Presence of left artificial hip joint
CPT/HCPCS: 73502; 99212

== ENCOUNTER 2023-12-19 08:41 | Outpatient (AMB) | payer MEDICARE, MEDICAID, SELFPAY ==
[2023-12-19 08:44] VITALS: BMI 35.0
--- NOTE | 2023-12-19 08:44 | MHC.OFFVIS ---
Vital Signs 12/19/23 08:44 Height 5 ft Weight 179 lb BMI 35.0 Intake Visit Reasons: OV-LT INGRID 06/05/23 DR-follow up Intake Note: Angeline is a 63 year old female who presents for a follow up s/p left INGRID 06/05/23 DR. Patient reports she is doing great and has no problems or concerns at this time. She continues with her home exercise program. She has no longer walking with an assistive device. She does not take any medicines for her discomfort. Allergies bee pollen [bee stings] Allergy (Severe, Verified 12/19/23 08:55) Anaphylaxis-bee and wasp stings ciprofloxacin [From Cipro] Allergy (Severe, Verified 12/19/23 08:55) Rash, hives crab Allergy (Severe, Verified 12/19/23 08:55) Hives, itching, swelling hydroxychloroquine Allergy (Severe, Verified 12/19/23 08:55) Hives, itching lobster Allergy (Severe, Verified 12/19/23 08:55) Hives, itching, swelling methotrexate Allergy (Severe, Verified 12/19/23 08:55) fatigue, hives, GI upset Medication List - Last Reconciled 12/19/23 by Alcon Moncada MD acetaminophen 650 mg (2 x 325 mg) PO Q6H PRN 30 days alendronate 70 mg PO QWEEK amlodipine 10 mg PO DAILY ascorbic [id number] 1,000 mg (Emergen-C) ea PO aspirin 325 mg PO Q12H 42 days atorvastatin 20 mg PO DAILY celecoxib 200 mg PO BID 30 days chlorthalidone 12.5 mg PO DAILY cholecalciferol (vitamin D3) (Vitamin D3) 50 mcg PO DAILY diclofenac sodium 1% 1 ea topical QID PRN docusate sodium 100 mg PO BID 30 days epinephrine 0.3 mL IM ONCE PRN gabapentin 100 mg PO BEDTIME 7 days lisinopril 40 mg PO DAILY methocarbamol 750 mg PO TID 7 days oxycodone 5 mg PO Q8H PRN 7 days walker Folding front wheeled walker [facility] Medical History Hidradenitis suppurativa Hx of Diverticular disease Essential hypertension Osteoarthritis GERD (gastroesophageal reflux disease) Fibromyalgia Prediabetes Hyperlipidemia Surgical History Status post left hip replacement Hx of colonoscopy History of surgery on lower extremity Status post total hip replacement, right Family History Mother Myocardial infarction Hypertension Stroke Brother Emphysema lung Father Heart disease S/P CABG x 3 Arthritis Brother Heart disease Social History Household Members: Significant Other Housing: Apartment Are you a primary director of primary care to a significant other at home: No Do you presently have visiting nurse or other home services: No Alcohol intake: current Alcohol intake frequency: does not drink Patient Tobacco Use Status: Former Tobacco user Quit Date: 05/07/2023 Tobacco use type: Cigarette Years Smoked: 50 Second Hand Smoke Exposure: No Substance Use Type: Marijuana service: No Current occupational status: retired 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 Physical Exam Vital Signs: BMI result Body Mass Index 35.0 Const Other: Well-nourished well-developed very friendly female awake alert and oriented x3 in no acute distress Extrem Other: Bilateral lower extremity examination shows good capillary refill, no skin lesions noted, normal sensation light touch Left hip examination shows that the surgical incision is well healed, no erythema, minimal discomfort with range of motion, no tenderness over her bursa Results Reviewed Results Reviewed: X-rays of the patient's left hip show a total hip arthroplasty in good position with no signs of loosening, no acute bony abnormalities Assessment & Plan Assessment & Plan (1) Left hip pain: Code(s): M25.552 - Pain in left hip Category: Medical Plan Ms. Wilks continues to do very well after undergoing left total hip replacement surgery on 06/05/2023. She will continue with her home exercise program. She does know to take antibiotics before any dental work. She will contact me prior to her annual follow-up appointment should any questions or concerns arise. Feel free to call me at any time should questions regarding her orthopedic management arise. I spent 22 minutes in reviewing the patient's records and imaging studies, seeing the patient and documenting in the medical record. Orders: Orders XR hip LT min 2V Today M25.552 - Pain in left hip Coding Level of Care Code Est Pt Level 3 (08765) Diagnoses Left hip pain M25.552
== END 2023-12-19 09:05 | disposition home or self-care (01) ==
PROVIDERS: PCP Internal Medicine; Visit Provider Orthopaedic Surgery
DX: M25.552 Pain in left hip (principal)
CPT/HCPCS: 99213

== ENCOUNTER 2024-02-12 10:17 | Outpatient (AMB) | payer MEDICARE, MEDICAID, SELFPAY ==
--- NOTE | 2024-02-12 10:20 | MHC.OFFVIS ---
Vital Signs 02/12/24 10:24 Height 5 ft Weight 180 lb 1.883 oz BMI 35.2 BP 132/80 Blood Pressure Location Rt brachial Position Sitting Pulse 86 Pulse Source Pulse Oximeter Pulse Oximetry (%) 98 Oxygen Delivery Method Room Air Intake Visit Reasons: RA/CM Intake Note: Patient presents for RA. Allergies bee pollen [bee stings] Allergy (Severe, Verified 02/12/24 10:23) Anaphylaxis-bee and wasp stings ciprofloxacin [From Cipro] Allergy (Severe, Verified 02/12/24 10:23) Rash, hives crab Allergy (Severe, Verified 02/12/24 10:23) Hives, itching, swelling hydroxychloroquine Allergy (Severe, Verified 02/12/24 10:23) Hives, itching lobster Allergy (Severe, Verified 02/12/24 10:23) Hives, itching, swelling methotrexate Allergy (Severe, Verified 02/12/24 10:23) fatigue, hives, GI upset Medication List - Last Reconciled 02/12/24 by Fernando Hernandez MD acetaminophen 650 mg (2 x 325 mg) PO Q6H PRN 30 days alendronate 70 mg PO QWEEK amlodipine 10 mg PO DAILY ascorbic [id number] 1,000 mg (Emergen-C) ea PO aspirin 325 mg PO Q12H 42 days atorvastatin 20 mg PO DAILY celecoxib 200 mg PO BID 30 days chlorthalidone 12.5 mg PO DAILY cholecalciferol (vitamin D3) (Vitamin D3) 50 mcg PO DAILY diclofenac sodium 1% 1 ea topical QID PRN docusate sodium 100 mg PO BID 30 days epinephrine 0.3 mL IM ONCE PRN gabapentin 100 mg PO BEDTIME 7 days lisinopril 40 mg PO DAILY methocarbamol 750 mg PO TID 7 days oxycodone 5 mg PO Q8H PRN 7 days walker Folding front wheeled walker HPI Comments Details: 63-year-old female with seronegative RA returns for follow-up. She states that she continues to have episodic flare-up of her knees. She wakes up with bilateral knee swelling, pain and stiffness, morning stiffness lasts for about an hour. It is unrelated to activity. She continues to have minimal pains in her hands but no significant swelling or stiffness. She denies any recent infections. She states that her hidradenitis is improved. She tried to find a thermo processor but was not able to find 1. 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 Patient stated that since 2004 she has had right hip pain. She ultimately had a right hip replacement 2008. Over the years patient has had intermittent joint pain and swelling including elbow, hands, knuckles, wrists, ankles, feet, left hip. She states that is her most bothersome pain at this point is left hip pain and stiffness. The pain and stiffness last all day. Also last week she had swelling of her left elbow that lasted about a month then self-resolved. She also had pain and swelling of her hands and knuckles that lasted a few days then self-resolved. Patient takes acetaminophen which provides little relief. She is unaware of any family history of autoimmune rheumatic disease. There is no history of DVT/PE. 2-3 years ago patient was evaluated by electronic scale tester Dr. Dee drake and was started on hydroxychloroquine. Patient took it for 2 weeks but developed severe hives and stopped it PFSH Medical History (Reviewed 12/19/23 @ 08:55 by Darcie Truong [facility]) Hidradenitis suppurativa Hx of Diverticular disease Essential hypertension Osteoarthritis GERD (gastroesophageal reflux disease) Fibromyalgia Prediabetes Hyperlipidemia Surgical History Status post left hip replacement Hx of colonoscopy History of surgery on lower extremity Status post total hip replacement, right Family History Mother Myocardial infarction Hypertension Stroke Brother Emphysema lung Father Heart disease S/P CABG x 3 Arthritis Brother Heart disease Social History Household Members: Significant Other Housing: Apartment Are you a primary home care rn to a significant other at home: No Do you presently have visiting nurse or other home services: No Alcohol intake: current Alcohol intake frequency: does not drink Patient Tobacco Use Status: Former Tobacco user Tobacco use type: Cigarette Years Smoked: 50 Second Hand Smoke Exposure: No Substance Use Type: Marijuana service: No Current occupational status: retired 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 Female Reproductive History Menstrual Total pregnancies: 5 Number of Living Children: 2 Ab induced: 2 Ab spontaneous: 1 Review of Systems Musc Reports arthralgias, Reports joint swelling and Reports stiffness Physical Exam Vital Signs: Last Vital Signs Pulse 86 02/12/24 10:24 BP 132/80 02/12/24 10:24 Pulse Ox 98 02/12/24 10:24 Oxygen Delivery Method Room Air 02/12/24 10:24 BMI result Body Mass Index 35.2 Const General: cooperative, healthy appearing and comfortable Nutritional Appearance: obese Orientation/consciousness: patient oriented x3 Limitations: no limitations HEENT Head: Yes normocephalic and Yes atraumatic Resp Effort & Inspection: normal respiratory effort and able to speak in complete sentences Back/Spine/Pelvis Other: Significant kyphosis Neuro General: patient oriented x3 Extrem Other: Osteoarthritic changes of both hands with Heberden's and Jewels's nodes Bilateral 1st CMC joint squaring No swollen or tender joints today in both hands today Bilateral 1st CMC joint tenderness Some subluxation of left 1st CMC joint Normal nailfold capillaroscopy Bilateral knee crepitus and pain with full flexion Bilateral bunion Results Reviewed Results Reviewed: [address] [address] XRay Report Signed Patient: Angeline Wilks MR#: [id number] : 1960 Acct:[id number] Age/Sex: 62 / F ADM Date: 12/06/22 Loc: HO.LAB Attending Dr: Fernando Hernandez MD Ordering Physician: Fernando Hernandez MD Date of Service: 12/06/22 Procedure(s): XR hip LT min 2V Accession Number(s): [id number] cc: Fernando Hernandez MD~ EXAMINATION: XR HIP, LEFT XR HAND AND WRIST, BILATERAL XR FOOT, BILATERAL XR ANKLE, BILATERAL CLINICAL INFORMATION: Rheumatoid arthritis. COMPARISON: None available. TECHNIQUE: 2 views left hip, 4 views right and left hand and wrist, 3 views of right and left feet, and 2 views of right and left ankles. FINDINGS: LEFT HIP: There is no evidence of acute fracture or dislocation of the left hip. There is significant loss of left hip joint space in a concentric manner with sclerosis and subchondral cyst formation. No femoral head deformity is seen. There is prominent collar spurring present. There is spurring involving the greater trochanter. Prominent vascular calcifications are noted. Subchondral cysts are seen involving the pubic symphysis. RIGHT FOOT: There is no evidence of acute fracture or dislocation of the right foot. There appears be osteopenia present. There is mild bunion formation with joint space narrowing seen 1st metatarsophalangeal joint. There appear to be small erosions involving the heads of the 2nd through 5th metatarsals. There appear to be erosions involving the base of the 2nd metatarsal. There is some degenerative narrowing with minor spurring seen involving the tarsal navicular joint and tarsal metatarsal joints. Dorsal beaking is seen involving the tarsal bones. Prominent plantar calcaneal spur present. RIGHT ANKLE: There is osteopenia present. No acute fracture or dislocation. Ankle mortise appears intact with talar tilt of approximately 8 degrees. No definite erosive changes are appreciated. Left ankle: There is no evidence of acute fracture or dislocation of the left ankle. Left ankle mortise appears intact. LEFT FOOT: There is generalized osteopenia present. There is severe degenerative change of the 1st metatarsophalangeal joint with loss of joint space and articular irregularity and deformity. Subchondral cyst formation is evident with prominent spurring. There are some erosions seen involving the 2nd through 5th metatarsal heads. There is some degenerative change seen involving the metatarsophalangeal joints 1st through 3rd digits. Prominent plantar spur present. Dorsal beaking of the talar bone is noted. RIGHT HAND AND WRIST: There is diffuse osteopenia present most prominent in the periarticular regions but generalized. There is narrowing of the triscaphe joint with severe narrowing of the 1st and 2nd carpometacarpal joints with loss of joint space, sclerosis, subchondral cyst formation, and prominent spurring. There is deformity of the multangulars. There appear to be small erosions versus subchondral cysts involving the heads of the metacarpal bones. There is some degenerative joint space narrowing with marginal irregularity involving the 2nd metatarsophalangeal joint. There is degenerative change seen with some joint space narrowing and spurring about the distal interphalangeal joints 2nd to the largest extent. There is some mild soft tissue prominence about the first and second metacarpophalangeal joints. LEFT HAND AND WRIST: There is generalized osteopenia. There is severe degenerative change of the 1st carpometacarpal joint with loss of joint space and marginal spurring and some deformity of the multangulars. There is loss of the triscaphe joint space. No acute fracture or dislocation is evident. There is some degenerative change with joint space narrowing involving the 1st metacarpophalangeal joint. There is degenerative narrowing and sclerosis involving the 2nd distal interphalangeal joint. There are some erosions seen involving the 2nd and 5th metacarpal heads. There is degenerative change seen involving the 5th proximal interphalangeal joint. There is some mild soft tissue prominence seen about the second metacarpophalangeal joint. XR/XR hip LT min 2V IMPRESSION: Diffuse osteopenia. ? Severe degenerative change of the left hip joint in a concentric fashion, as described, which is consistent with the appearance of rheumatoid arthritis rather than osteoarthritis which tends to be more focal regions of the joint space. ? Combination of findings of erosive and degenerative arthritides, as described. Assessment & Plan Assessment & Plan (1) Seronegative rheumatoid arthritis: Comment: -ve RF-ve CCP HCQ years ago DC due to allergic reaction MTX 02/2023 DC due to fatigue & hives Enbrel 09/2023-DC 10/2023 GI upset and hidradenitis suppurativa Code(s): M06.00 - Rheumatoid arthritis without rheumatoid factor, unspecified site Category: Medical Plan: This is a 63-year-old female with seronegative RA who presents for follow-up. She is off DMARDs for the last 3 months. Patient continues flare-ups affecting multiple joints especially her knees with swelling and morning stiffness lasting 1 hour. Will need to restart DMARDs. Discussed risks and benefits of Humira. Patient agreed to proceed. Will start prior authorization for Humira. Humira might also have the added benefit of treating her hidradenitis. Labs before next visit in 3 months (2) Osteopenia: Code(s): M85.80 - Other specified disorders of bone density and structure, unspecified site Category: Medical Qualifiers: Osteopenia location: multiple sites Qualified Code(s): M85.89 - Other specified disorders of bone density and structure, multiple sites Plan: DEXA 02/2023 showed osteopenia FRAX score for left hip fracture is 3.7% at the hip. Continue with alendronate 70 mg weekly Continue adequate dairy intake, and vitamin-D supplementation (3) Hidradenitis suppurativa: Code(s): L73.2 - Hidradenitis suppurativa Category: Medical Plan: Establish care with thermo processor Plan I spent 26 minutes reviewing patient's chart, evaluating patient, ordering diagnostic workup, counseling patient and documenting in the chart Orders: Orders Complete Blood Count Auto Diff 3 Months M06.00 - Rheumatoid arthritis without rheumatoid factor, unspecified site C Reactive Protein 3 Months M06.00 - Rheumatoid arthritis without rheumatoid factor, unspecified site Erythrocyte Sedimentation Rate 3 Months M06.00 - Rheumatoid arthritis without rheumatoid factor, unspecified site Hepatitis A,B,C Profile 3 Months Z11.59 - Encounter for screening for other viral diseases T Spot TB 3 Months Z11.7 - Encounter for testing for latent tuberculosis infection Comprehensive Met. Panel 3 Months M06.00 - Rheumatoid arthritis without rheumatoid factor, unspecified site Coding Level of Care Code Est Pt Level 4 (11050) Diagnoses Seronegative rheumatoid arthritis M06.00 Osteopenia of multiple sites M85.89 Osteopenia location: multiple sites Hidradenitis suppurativa L73.2
[2024-02-12 10:24] VITALS: BP 132/80; PULSE 86; O2SAT 98; BMI 35.2
== END 2024-02-12 12:11 | disposition home or self-care (01) ==
PROVIDERS: PCP Internal Medicine; Visit Provider Student in an Organized Health Care Education/Training Program
DX: M06.00 Rheumatoid arthritis without rheumatoid factor, unspecified site (principal); M85.89 Other specified disorders of bone density and structure, multiple sites; L73.2 Hidradenitis suppurativa
CPT/HCPCS: 99214

== ENCOUNTER → 2024-02-12 10:17 | Outpatient (BNVA) | payer MEDICARE, MEDICAID, SELFPAY | PROVIDERS: PCP Internal Medicine; Visit Provider Student in an Organized Health Care Education/Training Program | DX: M06.00 Rheumatoid arthritis without rheumatoid factor, unspecified site (principal); M85.89 Other specified disorders of bone density and structure, multiple sites; L73.2 Hidradenitis suppurativa | CPT/HCPCS: 99212 ==

== ENCOUNTER 2024-05-14 09:56 | Outpatient (REF) | payer MEDICARE, MEDICAID, SELFPAY ==
[2024-05-14 10:25] LABS: MANUAL DIFF FLAG NO
[2024-05-14 10:49] LABS: Basophils Percent Auto 0.4 % (0-2); Eosinophils Absolute Auto 0.1 X10*3/uL (0.0-0.4); Eosinophils Percent Auto 1.4 % (0-4); Hematocrit 43.4 % (37.0-47.0); Hemoglobin 15.1 g/dl (12.0-16.0); Imm Gran Abs Auto 0.02 X10*3/uL (0.00-0.03); Imm Gran Pct Auto 0.3 % (0.0-0.4); Lymphocytes Absolute Auto 1.8 X10*3/uL (1.2-4.9); Lymphocytes Percent Auto 25.4 % (20-40); Mean Corpuscular HGB Conc 34.8 g/dl (31.0-35.0); Mean Corpuscular Hemoglobin 32.1 pg (27.0-33.0); Mean Corpuscular Volume 92.3 fL (80.0-98.0); Mean Platelet Volume 8.1 fL (9.4-12.3); Monocytes Absolute Auto 0.6 X10*3/uL (0.1-1.2); Monocytes Percent Auto 8.4 % (2-11); Neutrophils Absolute Auto 4.6 x10*3/uL (2.0-8.3); Neutrophils Percent Auto 64.1 % (45-73); Platelet Count 307 X10*3/uL (160-400); Red Cell Distribution Width 13.4 % (11.0-16.0); White Blood Count 7.2 X10*3/uL (4.8-10.8)
[2024-05-14 11:39] LABS: Erythrocyte Sedimentation Rate 6 MM/HR (0-20)
[2024-05-14 11:48] LABS: Alanine Aminotransferase 17 U/L (0-31); Albumin Level 4.6 g/dL (3.5-5.0); Alkaline Phosphatase 96 U/L (39-117); Anion Gap 12 (12-20); Aspartate Amino Transferase 20 U/L (5-31); Bilirubin Total 0.6 mg/dL (0.0-1.0); Blood Urea Nitrogen 12 mg/dL (9-16); C Reactive Protein < 0.10 mg/dL (< or = 0.50); Calcium 10.1 mg/dL (8.4-10.2); Carbon Dioxide 26 mmol/L (22-29); Chloride 104 mmol/L (96-108); Estimated Glomerular Filt Rate > 60; Glucose Random 113 mg/dL (60-115); Potassium 3.8 mmol/L (3.3-5.1); Sodium 138 mmol/L (135-145); Total Protein 7.6 g/dL (6.5-8.0)
[2024-05-15 10:02] LABS: HBS Num1 15.75 mIU/mL (0-7.99); HBc Num1 0.08 S/CO (0.00-0.79); HBsAGNum1 0.33 S/CO (0.00-0.99); Hepatitis A Antibody IgM 0.22 Index (0-0.79); Hepatitis B Core Antibody Nonreactive (Nonreactive); Hepatitis B Surface Antigen Negative (Negative); ~HepC Num1 0.08 S/CO (0.00-0.79); ~Hepatitis A Antibody IgM Nonreactive (Nonreactive); ~Hepatitis B Surface Antibody REACTIVE (Nonreactive); ~Hepatitis C Antibody Nonreactive (Nonreactive)
[2024-05-17 11:03] LABS: TS Negative Control Passed; TS Panel A 0; TS Panel B 0; TS Positive Control Passed; TSpotTB Negative (Negative)
== END 2024-05-14 09:57 | disposition home or self-care (01) ==
LOC: HO.LAB 09:56
PROVIDERS: PCP Internal Medicine; Visit Provider Student in an Organized Health Care Education/Training Program
DX: M06.00 Rheumatoid arthritis without rheumatoid factor, unspecified site (principal); Z11.59 Encounter for screening for other viral diseases; Z11.7 Encounter for testing for latent tuberculosis infection
CPT/HCPCS: 36415; 80053; 85025; 85652; 86140; 86481; 86704; 86706; 86709; 86803; 87340

== ENCOUNTER 2024-05-16 09:38 | Outpatient (AMB) | payer MEDICARE, MEDICAID, SELFPAY ==
--- NOTE | 2024-05-16 09:40 | MHC.OFFVIS ---
Vital Signs 05/16/24 09:41 Height 5 ft Weight 182 lb 1.629 oz BMI 35.6 BP 130/74 Blood Pressure Location Lt brachial Position Sitting Pulse 89 Pulse Source Pulse Oximeter Pulse Oximetry (%) 97 Oxygen Delivery Method Room Air Intake Visit Reasons: RA/CM Intake Note: Patient last seen by Doctor Fernando Hernandez on 02/12/24. Presents today for RA follow up and test results. Allergies bee pollen [bee stings] Allergy (Severe, Verified 05/16/24 09:43) Anaphylaxis-bee and wasp stings ciprofloxacin [From Cipro] Allergy (Severe, Verified 05/16/24 09:43) Rash, hives crab Allergy (Severe, Verified 05/16/24 09:43) Hives, itching, swelling hydroxychloroquine Allergy (Severe, Verified 05/16/24 09:43) Hives, itching lobster Allergy (Severe, Verified 05/16/24 09:43) Hives, itching, swelling methotrexate Allergy (Severe, Verified 05/16/24 09:43) fatigue, hives, GI upset Medication List - Last Reconciled 05/16/24 by Fernando Hernandez MD acetaminophen 650 mg (2 x 325 mg) PO Q6H PRN 30 days alendronate 70 mg PO QWEEK amlodipine 10 mg PO DAILY ascorbic prfa-nvocaheh-zed 1,000 mg (Emergen-C) ea PO aspirin 325 mg PO Q12H 42 days atorvastatin 20 mg PO DAILY celecoxib 200 mg PO BID 30 days chlorthalidone 12.5 mg PO DAILY cholecalciferol (vitamin D3) (Vitamin D3) 50 mcg PO DAILY Cyltezo(CF) Pen (adalimumab-adbm) 40 mg (0.4 mL) subcut Q2W NS diclofenac sodium 1% 1 ea topical QID PRN docusate sodium 100 mg PO BID 30 days epinephrine 0.3 mL IM ONCE PRN gabapentin 100 mg PO BEDTIME 7 days lisinopril 40 mg PO DAILY methocarbamol 750 mg PO TID 7 days oxycodone 5 mg PO Q8H PRN 7 days walker Folding front wheeled walker HPI Comments Details: 63-year-old female with seronegative RA returns for follow-up. She has been using adalimumab for the last 2 months. She states that she feels about 25% improvement in her joint pains are stiffness. Particularly with the episodic pain swelling and locking of her knees in the middle of the night. She also states that she is able to walk more and do stairs with ease. She states that she feels a little muzzy she states that she feels tired and sleepy all the time since starting the medication. She continues to have intermittent pain in her thumbs, her wrists, elbows Initial history: This is a 62-year-old female who presents for evaluation of inflammatory polyarthropathy. Patient stated that since 2004 she has had right hip pain. She ultimately had a right hip replacement 2008. Over the years patient has had intermittent joint pain and swelling including elbow, hands, knuckles, wrists, ankles, feet, left hip. She states that is her most bothersome pain at this point is left hip pain and stiffness. The pain and stiffness last all day. Also last week she had swelling of her left elbow that lasted about a month then self-resolved. She also had pain and swelling of her hands and knuckles that lasted a few days then self-resolved. Patient takes acetaminophen which provides little relief. She is unaware of any family history of autoimmune rheumatic disease. There is no history of DVT/PE. 2-3 years ago patient was evaluated by security chief museum Dr. Dee drake and was started on hydroxychloroquine. Patient took it for 2 weeks but developed severe hives and stopped it PFSH Medical History Hidradenitis suppurativa Hx of Diverticular disease Essential hypertension Osteoarthritis GERD (gastroesophageal reflux disease) Fibromyalgia Prediabetes Hyperlipidemia Surgical History Status post left hip replacement Hx of colonoscopy History of surgery on lower extremity Status post total hip replacement, right Family History Mother Myocardial infarction Hypertension Stroke Brother Emphysema lung Father Heart disease S/P CABG x 3 Arthritis Brother Heart disease Social History Household Members: Significant Other Housing: Apartment Are you a primary care transport nurse to a significant other at home: No Do you presently have visiting nurse or other home services: No Alcohol intake: current Alcohol intake frequency: does not drink Patient Tobacco Use Status: Former Tobacco user Tobacco use type: Cigarette Years Smoked: 50 Second Hand Smoke Exposure: No Substance Use Type: Marijuana service: No Current occupational status: retired 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 Female Reproductive History Menstrual Total pregnancies: 5 Number of Living Children: 2 Ab induced: 2 Ab spontaneous: 1 Review of Systems Musc Reports arthralgias and Reports stiffness Physical Exam Vital Signs: Last Vital Signs Pulse 89 05/16/24 09:41 BP 130/74 05/16/24 09:41 Pulse Ox 97 05/16/24 09:41 Oxygen Delivery Method Room Air 05/16/24 09:41 BMI result Body Mass Index 35.6 Const General: cooperative, healthy appearing and comfortable Nutritional Appearance: obese Orientation/consciousness: patient oriented x3 Limitations: no limitations HEENT Head: Yes normocephalic and Yes atraumatic Resp Effort & Inspection: normal respiratory effort and able to speak in complete sentences Back/Spine/Pelvis Other: Significant kyphosis Neuro General: patient oriented x3 Extrem Other: Osteoarthritic changes of both hands with Heberden's and Jewels's nodes Bilateral 1st CMC joint squaring No swollen or tender joints today in both hands today Bilateral 1st CMC joint tenderness Some subluxation of left 1st CMC joint Normal nailfold capillaroscopy Bilateral knee crepitus but no pain with full flexion-extension No ankle swelling or tenderness bilaterally Bilateral bunion Results Reviewed Results Reviewed: [address] [address] XRay Report Signed Patient: Angeline Wilks MR#: [id number] : 1960 Acct:[id number] Age/Sex: 62 / F ADM Date: 12/06/22 Loc: [facility].LAB Attending Dr: Fernando Hernandez MD Ordering Physician: Fernando Hernandez MD Date of Service: 12/06/22 Procedure(s): XR hip LT min 2V Accession Number(s): [id number] cc: Fernando Hernandez MD~ EXAMINATION: XR HIP, LEFT XR HAND AND WRIST, BILATERAL XR FOOT, BILATERAL XR ANKLE, BILATERAL CLINICAL INFORMATION: Rheumatoid arthritis. COMPARISON: None available. TECHNIQUE: 2 views left hip, 4 views right and left hand and wrist, 3 views of right and left feet, and 2 views of right and left ankles. FINDINGS: LEFT HIP: There is no evidence of acute fracture or dislocation of the left hip. There is significant loss of left hip joint space in a concentric manner with sclerosis and subchondral cyst formation. No femoral head deformity is seen. There is prominent collar spurring present. There is spurring involving the greater trochanter. Prominent vascular calcifications are noted. Subchondral cysts are seen involving the pubic symphysis. RIGHT FOOT: There is no evidence of acute fracture or dislocation of the right foot. There appears be osteopenia present. There is mild bunion formation with joint space narrowing seen 1st metatarsophalangeal joint. There appear to be small erosions involving the heads of the 2nd through 5th metatarsals. There appear to be erosions involving the base of the 2nd metatarsal. There is some degenerative narrowing with minor spurring seen involving the tarsal navicular joint and tarsal metatarsal joints. Dorsal beaking is seen involving the tarsal bones. Prominent plantar calcaneal spur present. RIGHT ANKLE: There is osteopenia present. No acute fracture or dislocation. Ankle mortise appears intact with talar tilt of approximately 8 degrees. No definite erosive changes are appreciated. Left ankle: There is no evidence of acute fracture or dislocation of the left ankle. Left ankle mortise appears intact. LEFT FOOT: There is generalized osteopenia present. There is severe degenerative change of the 1st metatarsophalangeal joint with loss of joint space and articular irregularity and deformity. Subchondral cyst formation is evident with prominent spurring. There are some erosions seen involving the 2nd through 5th metatarsal heads. There is some degenerative change seen involving the metatarsophalangeal joints 1st through 3rd digits. Prominent plantar spur present. Dorsal beaking of the talar bone is noted. RIGHT HAND AND WRIST: There is diffuse osteopenia present most prominent in the periarticular regions but generalized. There is narrowing of the triscaphe joint with severe narrowing of the 1st and 2nd carpometacarpal joints with loss of joint space, sclerosis, subchondral cyst formation, and prominent spurring. There is deformity of the multangulars. There appear to be small erosions versus subchondral cysts involving the heads of the metacarpal bones. There is some degenerative joint space narrowing with marginal irregularity involving the 2nd metatarsophalangeal joint. There is degenerative change seen with some joint space narrowing and spurring about the distal interphalangeal joints 2nd to the largest extent. There is some mild soft tissue prominence about the first and second metacarpophalangeal joints. LEFT HAND AND WRIST: There is generalized osteopenia. There is severe degenerative change of the 1st carpometacarpal joint with loss of joint space and marginal spurring and some deformity of the multangulars. There is loss of the triscaphe joint space. No acute fracture or dislocation is evident. There is some degenerative change with joint space narrowing involving the 1st metacarpophalangeal joint. There is degenerative narrowing and sclerosis involving the 2nd distal interphalangeal joint. There are some erosions seen involving the 2nd and 5th metacarpal heads. There is degenerative change seen involving the 5th proximal interphalangeal joint. There is some mild soft tissue prominence seen about the second metacarpophalangeal joint. XR/XR hip LT min 2V IMPRESSION: Diffuse osteopenia. ? Severe degenerative change of the left hip joint in a concentric fashion, as described, which is consistent with the appearance of rheumatoid arthritis rather than osteoarthritis which tends to be more focal regions of the joint space. ? Combination of findings of erosive and degenerative arthritides, as described. Assessment & Plan Assessment & Plan (1) Seronegative rheumatoid arthritis: Comment: -ve RF-ve CCP HCQ years ago DC due to allergic reaction MTX 02/2023 DC due to fatigue & hives Enbrel 09/2023-DC 10/2023 GI upset and hidradenitis suppurativa Adalimumab 02/2024 Code(s): M06.00 - Rheumatoid arthritis without rheumatoid factor, unspecified site Category: Medical Plan: This is a 63-year-old female with seronegative RA who presents for follow-up. She has been taking adalimumab regularly for the last 2 months. Symptomatically patient is improved. Her inflammatory symptoms are better. But she continues to have joint pains that are degenerative and mechanical in nature. Since starting it she has felt sleepy however. I think patient should continue adalimumab 40 mg every other week for 3 more months and reassess benefit versus side effects. Labs before next visit in 3 months (2) Osteopenia: Code(s): M85.80 - Other specified disorders of bone density and structure, unspecified site Category: Medical Qualifiers: Osteopenia location: multiple sites Qualified Code(s): M85.89 - Other specified disorders of bone density and structure, multiple sites Plan: DEXA 02/2023 showed osteopenia FRAX score for left hip fracture is 3.7% at the hip. 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 Patient fully aware. Advised patient to seek medical care [facility] if patient has an infection and advised patient to stop the medication until the infection is resolved. Plan I spent 26 minutes reviewing patient's chart, evaluating patient, ordering diagnostic workup, counseling patient and documenting in the chart Orders: Orders Complete Blood Count Auto Diff 3 Months M06.00 - Rheumatoid arthritis without rheumatoid factor, unspecified site Comprehensive Met. Panel 3 Months M06.00 - Rheumatoid arthritis without rheumatoid factor, unspecified site Erythrocyte Sedimentation Rate 3 Months M06.00 - Rheumatoid arthritis without rheumatoid factor, unspecified site C Reactive Protein 3 Months M06.00 - Rheumatoid arthritis without rheumatoid factor, unspecified site Coding Level of Care Code Est Pt Level 4 (09013) Complex EM visit Add On G2211 Diagnoses Seronegative rheumatoid arthritis M06.00 Osteopenia of multiple sites M85.89 Osteopenia location: multiple sites High risk medication use Z79.899
[2024-05-16 09:41] VITALS: BP 130/74; PULSE 89; O2SAT 97; BMI 35.6
== END 2024-05-16 10:08 | disposition home or self-care (01) ==
PROVIDERS: PCP Internal Medicine; Visit Provider Student in an Organized Health Care Education/Training Program
DX: M06.00 Rheumatoid arthritis without rheumatoid factor, unspecified site (principal); M85.89 Other specified disorders of bone density and structure, multiple sites; Z79.899 Other long term (current) drug therapy
CPT/HCPCS: 99214; G2211

== ENCOUNTER → 2024-05-16 09:38 | Outpatient (BNVA) | payer MEDICARE, MEDICAID, SELFPAY | PROVIDERS: PCP Internal Medicine; Visit Provider Student in an Organized Health Care Education/Training Program | DX: M06.00 Rheumatoid arthritis without rheumatoid factor, unspecified site (principal); M85.89 Other specified disorders of bone density and structure, multiple sites; M79.7 Fibromyalgia; Z79.83 Long term (current) use of bisphosphonates; Z79.620 Long term (current) use of immunosuppressive biologic; Z96.643 Presence of artificial hip joint, bilateral | CPT/HCPCS: 99212 ==

== ENCOUNTER 2024-06-19 09:24 | Outpatient (AMB) | payer MEDICARE, MEDICAID, SELFPAY ==
--- NOTE | 2024-06-19 09:31 | MHC.OFFVIS ---
Vital Signs 06/19/24 09:32 Height 5 ft Weight 180 lb BMI 35.2 Intake Visit Reasons: Bilateral hip discomfort Intake Note: Angeline is a 63 year old male who presents with complaints of intermittent discomfort along the lateral aspects of both of her hips after undergoing left total hip replacement surgery on 06/05/2023 as well as right total hip replacement surgery (performed by Dr. Richardson) in 2008. She continues with her home exercise program. She does not take any medicines for discomfort. She denies any fevers or chills. 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 Allergies bee pollen [bee stings] Allergy (Severe, Verified 06/19/24 09:33) Anaphylaxis-bee and wasp stings ciprofloxacin [From Cipro] Allergy (Severe, Verified 06/19/24 09:33) Rash, hives crab Allergy (Severe, Verified 06/19/24 09:33) Hives, itching, swelling hydroxychloroquine Allergy (Severe, Verified 06/19/24 09:33) Hives, itching lobster Allergy (Severe, Verified 06/19/24 09:33) Hives, itching, swelling methotrexate Allergy (Severe, Verified 06/19/24 09:33) fatigue, hives, GI upset Medication List - Last Reconciled 06/19/24 by Alcon Moncada MD acetaminophen 650 mg (2 x 325 mg) PO Q6H PRN 30 days alendronate 70 mg PO QWEEK amlodipine 10 mg PO DAILY ascorbic [id number]-[id number] 1,000 mg (Emergen-C) ea PO aspirin 325 mg PO Q12H 42 days atorvastatin 20 mg PO DAILY chlorthalidone 12.5 mg PO DAILY cholecalciferol (vitamin D3) (Vitamin D3) 50 mcg PO DAILY Cyltezo(CF) Pen (adalimumab-adbm) 40 mg (0.4 mL) subcut Q2W NS diclofenac sodium 1% 1 ea topical QID PRN docusate sodium 100 mg PO BID 30 days epinephrine 0.3 mL IM ONCE PRN lisinopril 40 mg PO DAILY walker Folding front wheeled walker [facility] Medical History Hidradenitis suppurativa Hx of Diverticular disease Essential hypertension Osteoarthritis GERD (gastroesophageal reflux disease) Fibromyalgia Prediabetes Hyperlipidemia Surgical History Status post left hip replacement Hx of colonoscopy History of surgery on lower extremity Status post total hip replacement, right Family History Mother Myocardial infarction Hypertension Stroke Brother Emphysema lung Father Heart disease S/P CABG x 3 Arthritis Brother Heart disease Social History Household Members: Significant Other Housing: Apartment Are you a primary urgent care technician to a significant other at home: No Do you presently have visiting nurse or other home services: No Alcohol intake: current Alcohol intake frequency: does not drink Patient Tobacco Use Status: Former Tobacco user Tobacco use type: Cigarette Years Smoked: 50 Second Hand Smoke Exposure: No Substance Use Type: Marijuana service: No Current occupational status: retired 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 Physical Exam Vital Signs: BMI result Body Mass Index 35.2 Const Other: Well-nourished well-developed very friendly female awake alert and oriented x3 in no acute distress Extrem Other: Bilateral lower extremity examination shows good capillary refill, no skin lesions noted, normal sensation light touch Bilateral hip examination shows that the surgical incisions are well healed, no erythema, minimal discomfort with range of motion, minimal tenderness over greater trochanteric bursae Assessment & Plan Assessment & Plan (1) Bilateral hip pain: Code(s): M25.551 - Pain in right hip; M25.552 - Pain in left hip Category: Medical Plan Ms. Wilks continues to do well after undergoing bilateral total hip replacement surgeries. She will continue with her home exercise program. She does know to take antibiotics before any dental work. She will contact me prior to her annual follow-up appointment should any questions or concerns arise. Feel free to call me at any time should questions regarding her orthopedic management arise. Well-nourished well-developed very friendly female awake alert and oriented x3 in no acute distress Coding Level of Care Code Est Pt Level 3 (68188) Complex EM visit Add On G2211 Diagnoses Bilateral hip pain M25.551; M25.552
[2024-06-19 09:32] VITALS: BMI 35.2
== END 2024-06-19 10:08 | disposition home or self-care (01) ==
PROVIDERS: PCP Internal Medicine; Visit Provider Orthopaedic Surgery
DX: M25.551 Pain in right hip (principal); M25.552 Pain in left hip
CPT/HCPCS: 99213; G2211

== ENCOUNTER → 2024-06-19 09:24 | Outpatient (BNVA) | payer MEDICARE, MEDICAID, SELFPAY | PROVIDERS: PCP Internal Medicine; Visit Provider Orthopaedic Surgery | DX: M25.551 Pain in right hip (principal); M25.552 Pain in left hip | CPT/HCPCS: 99212 ==

== ENCOUNTER 2024-07-03 10:17 | Outpatient (AMB) | payer MEDICARE, MEDICAID, SELFPAY ==
--- NOTE | 2024-07-03 10:23 | MHC.OFFVIS ---
Vital Signs 07/03/24 10:26 Height 5 ft Weight 183 lb 6.793 oz BMI 35.8 BP 132/78 Blood Pressure Location Rt brachial Position Sitting Pulse 94 Pulse Source Pulse Oximeter Pulse Oximetry (%) 96 Oxygen Delivery Method Room Air Intake Visit Reasons: RA Intake Note: Patient presents for RA. Allergies bee pollen [bee stings] Allergy (Severe, Verified 07/03/24 10:25) Anaphylaxis-bee and wasp stings ciprofloxacin [From Cipro] Allergy (Severe, Verified 07/03/24 10:25) Rash, hives crab Allergy (Severe, Verified 07/03/24 10:25) Hives, itching, swelling hydroxychloroquine Allergy (Severe, Verified 07/03/24 10:25) Hives, itching lobster Allergy (Severe, Verified 07/03/24 10:25) Hives, itching, swelling methotrexate Allergy (Severe, Verified 07/03/24 10:25) fatigue, hives, GI upset Medication List - Last Reconciled 07/03/24 by Fernando Hernandez MD acetaminophen 650 mg (2 x 325 mg) PO Q6H PRN 30 days alendronate 70 mg PO QWEEK amlodipine 10 mg PO DAILY ascorbic xpoc-dgkeedfc-ohg 1,000 mg (Emergen-C) ea PO aspirin 325 mg PO Q12H 42 days atorvastatin 20 mg PO DAILY chlorthalidone 12.5 mg PO DAILY cholecalciferol (vitamin D3) (Vitamin D3) 50 mcg PO DAILY diclofenac sodium 1% 1 ea topical QID PRN docusate sodium 100 mg PO BID 30 days epinephrine 0.3 mL IM ONCE PRN lisinopril 40 mg PO DAILY walker Folding front wheeled walker HPI Comments Details: 64-year-old female with seronegative RA returns for follow-up. She has been using adalimumab for 4 months now. She states that overall it does not help her much. She states that her joint pains are getting worse, she has pain in her feet, knees, back, elbows, hands, fingers. 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 Patient stated that since 2004 she has had right hip pain. She ultimately had a right hip replacement 2008. Over the years patient has had intermittent joint pain and swelling including elbow, hands, knuckles, wrists, ankles, feet, left hip. She states that is her most bothersome pain at this point is left hip pain and stiffness. The pain and stiffness last all day. Also last week she had swelling of her left elbow that lasted about a month then self-resolved. She also had pain and swelling of her hands and knuckles that lasted a few days then self-resolved. Patient takes acetaminophen which provides little relief. She is unaware of any family history of autoimmune rheumatic disease. There is no history of DVT/PE. 2-3 years ago patient was evaluated by career guidance technician Dr. Dee drake and was started on hydroxychloroquine. Patient took it for 2 weeks but developed severe hives and stopped it PFSH Medical History Seronegative rheumatoid arthritis Hidradenitis suppurativa Hx of Diverticular disease Essential hypertension Osteoarthritis GERD (gastroesophageal reflux disease) Fibromyalgia Prediabetes Hyperlipidemia Surgical History Status post left hip replacement Hx of colonoscopy History of surgery on lower extremity Status post total hip replacement, right Family History Mother Myocardial infarction Hypertension Stroke Brother Emphysema lung Father Heart disease S/P CABG x 3 Arthritis Brother Heart disease Social History Household Members: Significant Other Housing: Apartment Are you a primary memory care program director to a significant other at home: No Do you presently have visiting nurse or other home services: No Alcohol intake: current Alcohol intake frequency: does not drink Patient Tobacco Use Status: Former Tobacco user Tobacco use type: Cigarette Years Smoked: 50 Second Hand Smoke Exposure: No Substance Use Type: Marijuana service: No Current occupational status: retired 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 Female Reproductive History Menstrual Total pregnancies: 5 Number of Living Children: 2 Ab induced: 2 Ab spontaneous: 1 Review of Systems Musc Reports arthralgias and Reports stiffness Physical Exam Vital Signs: Last Vital Signs Pulse 94 07/03/24 10:26 BP 132/78 07/03/24 10:26 Pulse Ox 96 07/03/24 10:26 Oxygen Delivery Method Room Air 07/03/24 10:26 BMI result Body Mass Index 35.8 Const General: cooperative, healthy appearing and comfortable Nutritional Appearance: obese Orientation/consciousness: patient oriented x3 Limitations: no limitations HEENT Head: Yes normocephalic and Yes atraumatic Resp Effort & Inspection: normal respiratory effort and able to speak in complete sentences Back/Spine/Pelvis Other: Significant kyphosis Neuro General: patient oriented x3 Extrem Other: Osteoarthritic changes of both hands with Heberden's and Jewels's nodes Bilateral 1st CMC joint squaring Bilateral 1st CMC joint tenderness Subluxation of 1st CMC joint bilaterally Multiple tender PIP is bilaterally Tenderness at the common extensor origin at the right lateral epicondyle on the right side Bilateral knee crepitus and pain with full flexion Bilateral prominent bunions Normal nailfold capillaroscopy Assessment & Plan Assessment & Plan (1) Seronegative rheumatoid arthritis: Comment: -ve RF-ve CCP HCQ years ago DC due to allergic reaction MTX 02/2023 DC due to fatigue & hives Enbrel 09/2023-DC 10/2023 GI upset and hidradenitis suppurativa Adalimumab 02/2024 ineffective DC 06/2024 Code(s): M06.00 - Rheumatoid arthritis without rheumatoid factor, unspecified site Category: Medical Plan: This is a 64-year-old female with seronegative RA who presents for follow-up. Has been using adalimumab for the last 4 months without much improvement. This time patient has failed multiple DMARDs. Discontinue adalimumab. Her symptoms at this time are rather mechanical and degenerative. Follow-up as needed (2) Osteopenia: Comment: Alendronate started 10/2023 Code(s): M85.80 - Other specified disorders of bone density and structure, unspecified site Category: Medical Qualifiers: Osteopenia location: multiple sites Qualified Code(s): M85.89 - Other specified disorders of bone density and structure, multiple sites Plan: DEXA 02/2023 showed osteopenia FRAX score for left hip fracture is 3.7% at the hip. Continue with alendronate 70 mg weekly Repeat DEXA 02/2025. Follow-up afterwards (3) Generalized osteoarthritis: Code(s): M15.9 - Polyosteoarthritis, unspecified Category: Medical Plan: Discussed management of osteoarthritis. Tylenol Arthritis does not help much. Can use Voltaren gel on affected joints. Can use a leave sparingly Referred patient to occupational therapy for her hands and bilateral tennis elbow. Advised patient to seek evaluation by a cotton gin yard supervisor to evaluate her bunions (4) Bilateral tennis elbow: Code(s): M77.11 - Lateral epicondylitis, right elbow; M77.12 - Lateral epicondylitis, left elbow Category: Medical Plan: Referred to OT Plan I spent 26 minutes reviewing patient's chart, evaluating patient, ordering diagnostic workup, counseling patient and documenting in the chart Orders: Orders XR DEXA axial skeleton 02/24/25 M85.89 - Other specified disorders of bone density and structure, multiple sites OT Evaluation and Treatment Today M19.041 - Primary osteoarthritis, right hand, M19.042 - Primary osteoarthritis, left hand, M77.11 - Lateral epicondylitis, right elbow, M77.12 - Lateral epicondylitis, left elbow Medications: Discontinued Cyltezo(CF) Pen (adalimumab-adbm) Discontinued Reason: Doctor's Order 40 mg (0.4 mL) subcut Q2W 2 ea 2RF NS M06.00 - Rheumatoid arthritis without rheumatoid factor, unspecified site Coding Level of Care Code Est Pt Level 4 (68056) Diagnoses Seronegative rheumatoid arthritis M06.00 Osteopenia of multiple sites M85.89 Osteopenia location: multiple sites Generalized osteoarthritis M15.9 Bilateral tennis elbow M77.11; M77.12
[2024-07-03 10:26] VITALS: BP 132/78; PULSE 94; O2SAT 96; BMI 35.8
== END 2024-07-03 10:59 | disposition home or self-care (01) ==
PROVIDERS: PCP Internal Medicine; Visit Provider Student in an Organized Health Care Education/Training Program
DX: M06.00 Rheumatoid arthritis without rheumatoid factor, unspecified site (principal); M85.89 Other specified disorders of bone density and structure, multiple sites; M15.9 Polyosteoarthritis, unspecified; M77.11 Lateral epicondylitis, right elbow; M77.12 Lateral epicondylitis, left elbow
CPT/HCPCS: 99214

== ENCOUNTER → 2024-07-03 10:17 | Outpatient (BNVA) | payer MEDICARE, MEDICAID, SELFPAY | PROVIDERS: PCP Internal Medicine; Visit Provider Student in an Organized Health Care Education/Training Program | DX: M06.00 Rheumatoid arthritis without rheumatoid factor, unspecified site (principal); M85.89 Other specified disorders of bone density and structure, multiple sites; M77.11 Lateral epicondylitis, right elbow; M77.12 Lateral epicondylitis, left elbow; M19.041 Primary osteoarthritis, right hand; M19.042 Primary osteoarthritis, left hand | CPT/HCPCS: 99212 ==

== ENCOUNTER 2025-04-03 09:45 | Outpatient (AMB) | payer MEDICARE, MEDICAID, SELFPAY ==
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
--- NOTE | 2025-04-03 10:02 | A.OFFVIS_ITS ---
Vital Signs 04/03/25 10:08 Height 5 ft Weight 187 lb 6.287 oz BMI 36.6 BP 152/115 H Blood Pressure Location Lt brachial Position Sitting Pulse 92 Pulse Source Pulse Oximeter Pulse Oximetry (%) 96 Oxygen Delivery Method Room Air Intake Visit Reasons: RA Intake Note: Patient presents for RA follow up. Allergies bee pollen (bee stings) Allergy (Severe, Verified 04/03/25 10:07) Anaphylaxis-bee and wasp stings ciprofloxacin (From Cipro) Allergy (Severe, Verified 04/03/25 10:07) Rash, hives crab Allergy (Severe, Verified 04/03/25 10:07) Hives, itching, swelling hydroxychloroquine Allergy (Severe, Verified 04/03/25 10:07) Hives, itching lobster Allergy (Severe, Verified 04/03/25 10:07) Hives, itching, swelling methotrexate Allergy (Severe, Verified 04/03/25 10:07) fatigue, hives, GI upset Medication List - Last Reconciled 04/03/25 by Urvashi Siddiqui MD acetaminophen 650 mg (2 x 325 mg) PO Q6H PRN 30 days amlodipine 10 mg PO DAILY ascorbic olqk-stjxgfss-onq 1,000 mg (Emergen-C) ea PO aspirin 325 mg PO Q12H 42 days chlorthalidone 12.5 mg PO DAILY cholecalciferol (vitamin D3) (Vitamin D3) 50 mcg PO DAILY diclofenac sodium 1% 1 ea topical QID PRN docusate sodium 100 mg PO BID 30 days epinephrine 0.3 mL IM ONCE PRN lisinopril 40 mg PO DAILY walker Folding front wheeled walker HPI Comments Details: Patient is a 64-year-old female with hypertension, osteopenia, polyarticular osteoarthritis and seronegative rheumatoid arthritis here today for follow up Interval History: Patient last seen 07/03/[address] Hernandez - On Humira 40mg SC every 2 weeks - Did not notice any benefit - States that her joint pains are getting worse, she has pain in her feet, knees, back, elbows, hands, fingers - Exam consistent with mechanical/degenerative arthritis - DMARDs stopped Today, - Not on any rheum medication - Complaining of polyarticular joint pain, mainly involving the hands and also with numbness requiring her to shake out her hand Rheumatologic History: Initial history: This is a 62-year-old female who presents for evaluation of inflammatory polyarthropathy. Patient stated that since 2004 she has had right hip pain. She ultimately had a right hip replacement 2008. Over the years patient has had intermittent joint pain and swelling including elbow, hands, knuckles, wrists, ankles, feet, left hip. She states that is her most bothersome pain at this point is left hip pain and stiffness. The pain and stiffness last all day. Also last week she had swelling of her left elbow that lasted about a month then self-resolved. She also had pain and swelling of her hands and knuckles that lasted a few days then self-resolved. Patient takes acetaminophen which provides little relief. She is unaware of any family history of autoimmune rheumatic disease. There is no history of DVT/PE. 2-3 years ago patient was evaluated by child care provider Dr. Dee drake and was started on hydroxychloroquine. Patient took it for 2 weeks but developed severe hives and stopped it Current Rheumatology Medication(s): [facility] Medical History (Updated 04/04/25 @ 09:26 by Urvashi Siddiqui MD) Osteoarthritis of hands, bilateral Seronegative rheumatoid arthritis Hidradenitis suppurativa Hx of Diverticular disease Essential hypertension Osteoarthritis GERD (gastroesophageal reflux disease) Fibromyalgia Prediabetes Hyperlipidemia Surgical History Status post left hip replacement Hx of colonoscopy History of surgery on lower extremity Status post total hip replacement, right Family History Mother Myocardial infarction Hypertension Stroke Brother Emphysema lung Father Heart disease S/P CABG x 3 Arthritis Brother Heart disease Social History Household Members: Significant Other Housing: Apartment Are you a primary hearing care practitioner to a significant other at home: No Do you presently have visiting nurse or other home services: No Alcohol intake: current Alcohol intake frequency: does not drink Patient Tobacco Use Status: Former Tobacco user Tobacco use type: Cigarette Years Smoked: 50 Second Hand Smoke Exposure: No Substance Use Type: Marijuana service: No Current occupational status: retired 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 Review of Systems Const Details: Review of Systems Constitutional: Denies fever, chills, weight loss ENT: Denies vision changes, eye pain or eye redness, dental caries, dry mouth GI: Denies nausea, vomiting, diarrhea, abdominal pain, change in BM Pulm: Denies SOB, GONZALEZ, hemoptysis, wheezing Cards: Denies chest pain, palpitations Skin: Denies Raynaud's, rash, nail changes, photosensitivity, BURIAL NEEDS SALESPERSON: Denies headaches, weakness, paresthesias, recurrent falls MSK: as per HPI All other systems reviewed and are unremarkable except noted above Physical Exam Exam Exam: Vital signs reviewed Physical Examination CONSTITUITIONAL Patient alert and cooperative. Well appearing and in no apparent painful distress MSK Hands * Right Hand: Able to make a fist. No swelling or tenderness to palpation of the MCPs, PIPs or DIPs. * Left Hand: Able to make a fist. No swelling or tenderness to palpation of the MCPs, PIPs or DIPs. * Herbedens nodes noted bilaterally Wrists * Right Wrist: Full ROM to flexion and extension. No swelling or TTP * Left Wrist: Full ROM to flexion and extension. No swelling or TTP Elbows * Right Elbow: Full ROM. No swelling or TTP. No TTP of the medial epicondyle. No TTP of the lateral epicondyle * Left Elbow: Full ROM. No swelling or TTP. No TTP of the medial epicondyle. No TTP of the lateral epicondyle Shoulders * Right shoulder: Full ROM. No swelling noted. No TTP of the AC joint. No TTP of the subacromial bursa. No TTP of the posterior shoulder * Left shoulder: Full ROM. No swelling noted. No TTP of the AC joint. No TTP of the subacromial bursa. No TTP of the posterior shoulder Knees * Right knee: Full ROM. No swelling noted. No TTP of the knee joint line. No TTP of pes anserine bursa * Left knee: Full ROM. No swelling noted. No TTP of the knee joint line. No TTP of pes anserine bursa. * Crepitations felt bilaterally Ankles * Right ankle: Good ankle dorsiflexion and plantar flexion. No swelling. No TTP of the ankle joint * Left ankle: Good ankle dorsiflexion and plantar flexion. No swelling. No TTP of the ankle joint Feet * Right foot: Negative squeeze test * Left foot: Negative squeeze test Tender points? * No tenderness to palpation of the bilateral trapezius, supraspinatus, anterior costochondral junctions, bilateral suboccipital muscle insertions SKIN No rashes Vital Signs: Last Vital Signs Pulse 92 04/03/25 10:08 BP 152/115 H 04/03/25 10:08 Pulse Ox 96 04/03/25 10:08 Oxygen Delivery Method Room Air 04/03/25 10:08 BMI result Body Mass Index 36.6 Results Reviewed Results Reviewed: Laboratory Tests 04/03/25 10:57 WBC 6.5 RBC 4.57 Hgb 14.2 Hct 42.5 Plt Count 374 ESR 13 Sodium 137 Potassium 3.9 Chloride 104 Carbon Dioxide 24 BUN 15 Creatinine 0.62 AST 22 ALT 18 C-Reactive Protein 0.20 25-OH Vitamin D Total 103.8 Laboratory Tests 12/06/22 16:18 Rheumatoid Factor < 13.0 Cycl Citrul Peptide IgG <16 LOLA Screen NEGATIVE Laboratory Tests 05/14/24 10:23 Hepatitis A IgM Ab Nonreactive Hep Bs Antigen Negative Hep Bs Antibody REACTIVE Hep B Core Total Ab Nonreactive Hepatitis C Ab (EIA) Nonreactive TB Test (T-Spot) Com Negative DEXA 02/2023 FINDINGS: AP SPINE L1-L4: BMD 1.128 g/cm2, Z-score 0.7, T-score -0.4, normal. LEFT FEMUR, NECK: BMD 0.710 g/cm2, Z-score -1.2, T-score -2.4, osteopenia. LEFT FEMUR, TOTAL: BMD 0.749 g/cm2, Z-score -1.2, T-score -2.1, osteopenia. 10-YEAR FRACTURE RISK PREDICTION, FRAX: Major osteoporotic fracture (clinical spine, forearm, hip or shoulder) 11.6%. Hip fracture 2.1%. Assessment & Plan Assessment & Plan (1) Osteoarthritis of hands, bilateral: Comment: -ve RF-ve CCP HCQ years ago DC due to allergic reaction MTX 02/2023 DC due to fatigue & hives Enbrel 09/2023-DC 10/2023 GI upset and hidradenitis suppurativa Adalimumab 02/2024 ineffective DC 06/2024 Code(s): M19.041 - Primary osteoarthritis, right hand; M19.042 - Primary osteoarthritis, left hand Category: Medical Qualifiers: Osteoarthritis type: primary Qualified Code(s): M19.041 - Primary osteoarthritis, right hand; M19.042 - Primary osteoarthritis, left hand Plan: #Bilateral OA Patient is a 64 year old female with seronegative RA and polyarticular OA here today for follow up. Patient initially evaluated in November 2022 for polyarticular joint pain. The exam at the time did not show any evidence of synovitis however x-rays done at that time were suspicious for erosive arthropathy and so she was started on DMARD medication. Over the next 2 years she would try methotrexate, Enbrel and Humira without improvement. At her last visit as there was no evidence of inflammatory arthritis her complaints were then ultimately attributed to osteoarthritic/degenerative changes and all DMARD medication including biologics were stopped Today she is following up complaining of again polyarticular joint pain mainly in her hands and wrists. She also notes numbness and tingling to the hands and wrists with having to shake them out in the middle of the night. Her exam does not show any evidence of synovitis but she does show evidence of carpal tunnel. At this time it is unclear whether there would be any benefit to restarting DMARDs since they were not effective in the past and there was no active synovitis at this time. She does have osteoarthritic changes as evidenced by her Heberden nodes and Jewels's nodes. We will get x-rays to re-evaluate her current joint standing Plan - No DMARDs for now - XRs hand and wrists - Advised to wear splints at night - RTC 6 months (2) Osteopenia: Comment: DEXA 02/2023: AP Spine -0.4, Left femur neck -2.4, Left femur total -2.1. FRAX 11.6/2.1 Alendronate started 10/2023 Code(s): M85.80 - Other specified disorders of bone density and structure, unspecified site Category: Medical Qualifiers: Osteopenia location: multiple sites Qualified Code(s): M85.89 - Other specified disorders of bone density and structure, multiple sites Plan: #Osteopenia Patient with osteopenia previously on alendronate but self discontinued due to GI side effects. Her FRAX done in 2022 does not indicate in needing treatment so we need to repeat her bone density to re-evaluate her need for treatment Plan - DEXA - Vit D supplementation Plan This is my first visit with the patient. I spent 38 minutes reviewing the record and labs, taking a history, examining the patient, discussing the treatment plan, ordering diagnostic work up and documenting in the medical record Orders: Orders XR wrist LT min 3V 04/03/25 M19.041 - Primary osteoarthritis, right hand, M19.042 - Primary osteoarthritis, left hand XR hand LT min 3V 04/03/25 M19.041 - Primary osteoarthritis, right hand, M19.042 - Primary osteoarthritis, left hand Complete Blood Count Auto Diff 6 Months Z.89 - Other termite exterminator (current) drug therapy C Reactive Protein 6 Months Z - Other senior living (current) drug therapy Vitamin D 25-OH Total 6 Months Z - Other termite exterminator (current) drug therapy Complete Blood Count Auto Diff 04/03/25 Z.89 - Other termite exterminator (current) drug therapy C Reactive Protein 04/03/25 Z79.899 - Other senior living (current) drug therapy XR wrist RT min 3V 04/03/25 M19.041 - Primary osteoarthritis, right hand, M19.042 - Primary osteoarthritis, left hand XR hand RT min 3V 04/03/25 M19.041 - Primary osteoarthritis, right hand, M19.042 - Primary osteoarthritis, left hand Comprehensive Met. Panel 6 Months Z - Other termite exterminator (current) drug therapy Erythrocyte Sedimentation Rate 6 Months Z - Other termite exterminator (current) drug therapy Vitamin D 25-OH Total 04/03/25 Z79.899 - Other senior living (current) drug therapy Comprehensive Met. Panel 04/03/25 Z.899 - Other termite exterminator (current) drug therapy Erythrocyte Sedimentation Rate 04/03/25 Z79.899 - Other senior living (current) drug therapy Medications: Discontinued alendronate Take 1 tab once weekly, 1st thing in the morning, on an empty stomach, with a large glass of water (at least 6 oz) and stay upright for 30 minutes Discontinued Reason: Doctor's Order 70 mg PO QWEEK 12 tabs 1RF Coding Level of Care Code Est Pt Level 4 (78112) Complex EM visit Add On G2211 Diagnoses Primary osteoarthritis of both hands M19.041; M19.042 Osteoarthritis type: primary Osteopenia of multiple sites M85.89 Osteopenia location: multiple sites
[2025-04-03 10:08] VITALS: BP 152/115; PULSE 92; O2SAT 96; BMI 36.6
--- OUTSIDE RECORDS SUMMARY | 2025-04-03 11:33 | XMS_ITS | Encounter Summary ---
Author Organization [facility] Address [address] [place] [id number] Phone Care Team Providers Care Chemical Cell Changer Name Role Phone Nolan Gee MD Primary Care Provider [phone] Encounter Details Date Type Department Care Team ([facility] st Contact Info) Description 10/29/2024 Telephone [facility] Pul[facility], Allergy and Critical Care Medicine [address] [place], [place] [id number] Unknown, Unknown, Social History Tobacco Use Types Packs/Day Years [...] AM EDT documented as of this encounter Plan of Treatment Upcoming Encounters Date Type Department Care Team (Late st Contact Info) Description 04/15/2025 8:00 AM EDT Pre-Admission Testing Pre Procedure Evaluation [address] [place] [id number] Zack Huizar MD [address] [place] [id number] 04/16/2025 Hospital Encounter OR Admitting Dept - Virtual Department [address] [place] [address] Zack Huizar MD [address] [place] [phone] 04/16/2025 Procedure Pass [place] Admitting Dept - Virtual Department [address] [place] [phone] 05/22/2025 1:00 PM EDT Office Visit [facility] All[facility] 10 [facility] [place] [address] [place] [address] Westley Katz MD [address] [place] [phone] [email or web address] Scheduled Procedures Name Priority Associated Diagnoses Date/Ti me REDUCTION BREAST breast hypertrophy documented as of this encounter Visit Diagnoses Not on filedocumented in this encounter Care Teams Chemical Cell Changer Relationship Specialty Start Date End Date Nolan Gee MD [address] [place] [id number] [email or web address] PCP - General Internal Medicine 11/01/23 documented as of this encounter Additional Source Comments The information contained in this document represents components of the legal health record. It is not the complete legal health record.[facility]
--- OUTSIDE RECORDS SUMMARY | 2025-04-03 11:33 | XMS_ITS | Encounter Summary ---
Author Organization [facility] Address [address] [place] [address] [place] [phone] Phone Care Team Providers Care Senior Environmental Practice Leader Name Role Phone Nolan Gee MD Primary Care Provider [phone] Nolan Gee MD Primary Care Provider [phone] Encounter Details Date Type Department Care Team (Latest Contact Info) Description 01/09/2019 Ancillary Orders [facility] Rheumatology [address] [place] [address] Beth Sanderson MD [address] [facility], [address] [place] [address] [email or web address] Primary osteoarthritis involving multiple joints; Family history of rheumatoid arthritis Social History Tobacco Use Types Packs/Day Years Used Date Smoking Tobacco: Every Day Cigarettes Smokeless Tobacco: Current Comments:every day vaporizer Alcohol Use Standard Drinks/Week Comments No 0 (1 standard drink = 0.6 oz pur e alcohol) Comments Unknown Sex and Gender Information Value Date Recorded [...] AM EDT Pre-Admission Testing Pre Procedure Evaluation [address] [place] [address] Zack Huizar MD [address] [place] [address], [address] [place] [address] 04/16/2025 Hospital Encounter [place] Admitting Dept - Virtual Department [address] [place] [address] Zack Huizar MD [address] [place] [address], [address] [place] [address] 04/16/2025 Procedure Pass [place] Admitting Dept - Virtual Department [address] [place] [phone] 05/22/2025 1:00 PM EDT Office Visit [facility] All[facility] Critical [facility] Medicine [address] [place] [address] [place] [address] Westley Katz MD [address] [place] [phone] [email or web address] Scheduled Procedures Name Priority Associated Diagnoses Date/Ti me REDUCTION BREAST breast hypertrophy documented as of this encounter Results * XR FOOT 3 OR MORE VIEWS (RIGHT) (01/09/2019 11:57 AM EDT) Anatomical Region Laterality Modality Foot Right Radiographic Sanam ging 01/09/2019 12:0 8 PM EDT Impressions 01/09/2019 12:37 PM EDT Advanced osteoarthritis first MTP joint on the left with much more minor changes on the right. Early degenerative change between the tarsal bones and between the tarsals and metatarsals bilaterally. Prominent plantar calcaneal spurring bilaterally. No erosions are seen on either side. POS - [id number] Edited by: Lesley Quinones on 01/09/2019 12:25 PM Narrative 01/09/2019 12:37 PM EDT Bilateral feet, 3 views each. Left foot: There is advanced joint space loss with sclerosis and spurring at the first MTP joint. There is some mild sclerosis and joint space loss suggested at the second TMT joint and some slight sclerosis between the intertarsal joints with some dorsal spurring. No erosive changes. There is medial deviation of the navicular without other findings for pes planus. Fairly prominent plantar calcaneal spur noted. No tibiotalar effusion seen. Right foot: Mild hallux valgus. Some joint space loss at the first MTP joint is nowhere near as severe as that seen on the left. Some mild degenerative changes across the MTP joints is also somewhat less severe. Prominent plantar calcaneal spurring. Mild medial deviation of the talus with slight decrease in the arch may indicate early pes planus. No erosive changes. No bony destructive lesions. Diffuse regional demineralization. Procedure Note Edith Graham MD - 01/09/2019 Bilateral feet, 3 views each. Left foot: There is advanced joint space loss with sclerosis and spurringat the first MTP joint. There is some mild sclerosis and joint space losssuggested at the second TMT joint and some slight sclerosis between theintertarsal joints with some dorsal spurring. No erosive changes. There ismedial deviation of the navicular without other findings for pes planus.Fairly prominent plantar calcaneal spur noted. No tibiotalar effusionseen. Right foot: Mild hallux valgus. Some joint space loss at the first MTPjoint is nowhere near as severe as that seen on the left. Some milddegenerative changes across the MTP joints is also somewhat less severe.Prominent plantar calcaneal spurring. Mild medial deviation of the taluswith slight decrease in the arch may indicate early pes planus. No erosivechanges. No bony destructive lesions. Diffuse regional demineralization. IMPRESSION: Advanced osteoarthritis first MTP joint on the left with much more minorchanges on the right. Early degenerative change between the tarsal bonesand between the tarsals and metatarsals bilaterally. Prominent plantarcalcaneal spurring bilaterally. No erosions are seen on either side. POS - [id number] Edited by: Lesley Quinones on 01/09/2019 12:25 PM us Beth Sanderson MD IMG XR LOWER EXTREMITY F inal Result * XR FOOT 3 OR MORE VIEWS (LEFT) (01/09/2019 11:57 AM EDT) Anatomical Region Laterality Modality Foot Left Radiographic Sanam ging 01/09/2019 12:0 8 PM EDT Impressions 01/09/2019 12:37 PM EDT Advanced osteoarthritis first MTP joint on the left with much more minor changes on the right. Early degenerative change between the tarsal bones and between the tarsals and metatarsals bilaterally. Prominent plantar calcaneal spurring bilaterally. No erosions are seen on either side. POS - [id number] Edited by: Lesley Quinones on 01/09/2019 12:25 PM Narrative 01/09/2019 12:37 PM EDT Bilateral feet, 3 views each. Left foot: There is advanced joint space loss with sclerosis and spurring at the first MTP joint. There is some mild sclerosis and joint space loss suggested at the second TMT joint and some slight sclerosis between the intertarsal joints with some dorsal spurring. No erosive changes. There is medial deviation of the navicular without other findings for pes planus. Fairly prominent plantar calcaneal spur noted. No tibiotalar effusion seen. Right foot: Mild hallux valgus. Some joint space loss at the first MTP joint is nowhere near as severe as that seen on the left. Some mild degenerative changes across the MTP joints is also somewhat less severe. Prominent plantar calcaneal spurring. Mild medial deviation of the talus with slight decrease in the arch may indicate early pes planus. No erosive changes. No bony destructive lesions. Diffuse regional demineralization. Procedure Note Edith Graham MD - 01/09/2019 Bilateral feet, 3 views each. Left foot: There is advanced joint space loss with sclerosis and spurringat the first MTP joint. There is some mild sclerosis and joint space losssuggested at the second TMT joint and some slight sclerosis between theintertarsal joints with some dorsal spurring. No erosive changes. There ismedial deviation of the navicular without other findings for pes planus.Fairly prominent plantar calcaneal spur noted. No tibiotalar effusionseen. Right foot: Mild hallux valgus. Some joint space loss at the first MTPjoint is nowhere near as severe as that seen on the left. Some milddegenerative changes across the MTP joints is also somewhat less severe.Prominent plantar calcaneal spurring. Mild medial deviation of the taluswith slight decrease in the arch may indicate early pes planus. No erosivechanges. No bony destructive lesions. Diffuse regional demineralization. IMPRESSION: Advanced osteoarthritis first MTP joint on the left with much more minorchanges on the right. Early degenerative change between the tarsal bonesand between the tarsals and metatarsals bilaterally. Prominent plantarcalcaneal spurring bilaterally. No erosions are seen on either side. POS - [id number] Edited by: Lesley Quinones on 01/09/2019 12:25 PM Beth Sanderson MD IMG XR LOWER EXTREMITY F inal Result documented in this encounter Visit Diagnoses Diagnosis Primary osteoarthritis involving multiple joints Family history of rheumatoid arthritis Family history of arthritis Primary osteoarthritis involving multiple joints Family history of rheumatoid arthritis Family history of arthritis documented in this encounter Care Teams Senior Environmental Practice Leader Relationship Specialty Start Date End Date Nolan Gee MD [email or web address] PCP - General Internal Medicine 12/11/17 10/31/23 Nolan Gee MD [address] [place] [phone] PCP - General Internal Medicine 11/01/23 documented as of this encounter Additional Source Comments The information contained in this document represents components of the legal health record. It is not the complete legal health record.[facility]
--- OUTSIDE RECORDS SUMMARY | 2025-04-03 11:33 | XMS_ITS | Encounter Summary ---
Author Organization [facility] Address [address] [place] [address] [place] [phone] Phone Care Team Providers Care Aerial Sprayer Name Role Phone Nolan Gee MD Primary Care Provider [phone] Nolan Gee MD Primary Care Provider [phone] Encounter Details Date Type Department Care Team (Late Contact Info) Description 11/26/2020 Procedure Pass [facility] Endoscopy Admitting Dept Virtual Department [address] [place] [address] Social History Tobacco Use Types Packs/Day Years Used Date Smoking Tobacco: Former Cigarettes 0 11/24/1969 - 10/26/2019 Smokeless Tobacco: Former Alcohol Use Standard Drinks/Week Comments No 0 (1 standard drink = 0.6 oz pur e alcohol) Comments No Sex and Gender Information Value Date Recorded Sex Assigned at Female 10/22/2020 11:20 AM EDT Legal Sex Female 9:51 PM EDT Gender Identity Female 10/22/2020 11:20 AM EDT Sexual Orientation Straight 11/11/2020 8: 08 AM EDT documented as of this encounter Plan of Treatment Upcoming Encounters Date Type Department Care Team (Late Contact Info) Description 04/15/2025 8:00 AM EDT Pre-Admission Testing Pre Procedure Evaluation [address] [place] [address] Zack Huizar MD [address] [place] [address], [address] [phone] [email or web address] 04/16/2025 Hospital Encounter [place] Admitting Dept - Virtual Department [address] [place] [address] Zack Huizar MD [address] [facility], [address] [place] [address] [email or web address] 04/16/2025 Procedure Pass [place] Admitting Dept - Virtual Department [address] [place] [address] 05/22/2025 1:00 PM EDT Office Visit [facility] [address] [facility] [place] [address] [place] [address] Westley Katz MD [address] [place] [address] [email or web address] Scheduled Procedures Name Priority Associated Diagnoses Date/Ti me REDUCTION BREAST breast hypertrophy documented as of this encounter Visit Diagnoses Not on filedocumented in this encounter Care Teams Aerial Sprayer Relationship Specialty Start Date End Date Nolan Gee MD PCP - General Internal Medicine 12/11/17 10/31/23 Nolan Gee MD [address] [place] [phone] PCP - General Internal Medicine 11/01/23 documented as of this encounter Additional Source Comments The information contained in this document represents components of the legal health record. It is not the complete legal health record.[facility]
--- OUTSIDE RECORDS SUMMARY | 2025-04-03 11:33 | XMS_ITS | Encounter Summary ---
Author Organization [facility] Address [address] [place] [phone] Phone Care Team Providers Care Statistical Reporting Analyst Name Role Phone Nolan Gee MD Primary Care Provider [phone] Nolan Gee MD Primary Care Provider [phone] Reason for Referral * MRI/CAT Scan - Closed Specialty Diagnoses / Procedures Referred By Contac t Referred To Contact Radiology Diagnoses Arthralgia of both hands Procedures MRI Hand (Left) Paloma Vicente MD Phone: tel: fax: Referral ID Status Reason Start Date Expiration Date Visits Re quested Visits Authorized [id number] Closed 02/25/2022 02/25/2023 1 1 Encounter Details Date Type Department Care Team (Latest Contact Info) Description 02/25/2022 Transcribe Orders Virtual Department [address] [place] [address] Paloma Vicente MD [address] [place] [phone] Arthralgia of both hands (Primary Dx) Social History Tobacco Use Types [...] AM EDT Pre-Admission Testing Pre Procedure Evaluation [address] [place] [address] Zack Huizar MD [address] [place] [phone] 04/16/2025 Hospital Encounter OR Admitting Dept - Virtual Department [address] [place] [address] Zack Huizar MD [address] [place] [phone] 04/16/2025 Procedure Pass [place] Admitting Dept - Virtual Department [address] [place] [phone] 05/22/2025 1:00 PM EDT Office Visit [facility] [address] [facility] [place] [address] Westley Katz MD [address] [place] [phone] [email or web address] Scheduled Orders Name Type Priority Associated Diagnoses Orde r Schedule MRI Hand (Left) Imaging Routine Arthralgia of both hands Expected: 02/25/2022, Expires: 05/28/2022 Scheduled Procedures Name Priority Associated Diagnoses Date/Ti me REDUCTION BREAST breast hypertrophy documented as of this encounter Visit Diagnoses Diagnosis Arthralgia of both hands- Primary documented in this encounter Care Teams Statistical Reporting Analyst Relationship Specialty Start Date End Date Nolan Gee MD PCP - General Internal Medicine 12/11/17 10/31/23 Nolan Gee MD [address] [place] [address] [email or web address] PCP - General Internal Medicine 11/01/23 documented as of this encounter Additional Source Comments The information contained in this document represents components of the legal health record. It is not the complete legal health record.[facility]
--- OUTSIDE RECORDS SUMMARY | 2025-04-03 11:33 | XMS_ITS | Encounter Summary ---
Author Organization [facility] Address [address] [place] [address] [place] [phone] Phone Care Team Providers Care Jumpbasting Canvas Baster Name Role Phone Nolan Gee MD Primary Care Provider [phone] Nolan Gee MD Primary Care Provider [phone] Encounter Details Date Type Department Care Team (Late Contact Info) Description 02/24/2022 Transcribe Orders [facility] [address] [place] [address] Paloma Vicente MD [address] [place] [phone] Social History Tobacco Use Types Packs/Day Years [...] EDT Pre-Admission Testing Pre Procedure Evaluation [address] [place] [address] Zack Huizar MD [address] [place] [address] [address] [place] [address] 04/16/2025 Hospital Encounter [place] Admitting Dept - Virtual Department [address] [place] [phone] Zack Huizar MD [address] [place] [address], [address] [address] 04/16/2025 Procedure Pass [place] Admitting Dept - Virtual Department [address] [place] [phone] 05/22/2025 1:00 PM EDT Office Visit [facility] [address] [place] [address] Westley Katz MD [address] [place] [phone] [email or web address] Scheduled Procedures Name Priority Associated Diagnoses Date/Ti me REDUCTION BREAST breast hypertrophy documented as of this encounter Visit Diagnoses Not on filedocumented in this encounter Care Teams Jumpbasting Canvas Baster Relationship Specialty Start Date End Date Nolan Gee MD PCP - General Internal Medicine 12/11/17 10/31/23 Nolan Gee MD [address] [place] [phone] PCP - General Internal Medicine 11/01/23 documented as of this encounter Additional Source Comments The information contained in this document represents components of the legal health record. It is not the complete legal health record.[facility]
--- OUTSIDE RECORDS SUMMARY | 2025-04-03 11:33 | XMS_ITS | Clinical Summary ---
Author Organization [facility] Address [address] [place] [address] Phone Care Team Providers Care Household Appliances Salesperson Name Role Phone Jodee Strauss MD Primary Care Provider [phone] Allergies Active Allergy Reactions Criticality Noted Date Comments Ciprofloxacin Hcl 11/01/2023 Ciprofloxacin Rash,Anaphylaxis High 03/08/2018 Other Unknown 09/14/2011 anchovy Hydroxychloroquine Itching,Swelling,Rash Low 2018 Shellfish Unknown 09/14/2011 Venom-Honey Bee Anaphylaxis High 11/01/2023 Medications lisinopril (PRINIVIL,ZESTR IL) 40 MG tablet Take 40 mg by mouth daily. Active chlorthalidone (HYGROTON) 25 MG tablet Take 25 mg by mouth daily. Active cholecalciferol (VITAMIN D3) 1,000 unit tablet Take 1,500 Units by mouth daily. Active amLODIPine (NORVASC) 5 MG tablet Take 5 mg by mouth daily. Active methylcellulose (CITRUCEL) oral powder Take 2 g by mouth daily. Active EPINEPHrine 0.3 mg/0.3 mL auto-injector 1 Active acetaminophen (TYLENOL) 325 mg tablet Take 650 mg by mouth every 6 (six) hours as needed for pain (specific location in comments). 3 Active fluticasone propionate (FLONASE) 50 mcg/actuation nasal spray 1 spray by Nasal route daily as needed. 03/31/20 25 Discontinu ed(No longer taking) gabapentin (NEURONTIN) 100 MG capsule Take 100 mg by mouth daily. 3 06/21/20 23 Discontinu ed(Therapy Completed/ No Longer Necessary) atorvastatin (LIPITOR) 20 MG tablet Take 20 mg by mouth daily. 3 03/31/20 25 Discontinu ed(No longer taking) Active Problems Problem Noted Date Diagnosed Date Leg length discrepancy 01/15/2021 Assessment & Plan (01/26/2021 12:35 PM EDT): Since she is aware about 1.5 each sure to her left leg I have asked her to get an insert into her left shoe to counteract leg length discrepancy. Inflammatory arthritis 08/23/2018 Assessment & Plan (01/26/2021 12:32 PM EDT): New set of labs and x-rays requested today to check for interval changes and reassess need for disease modifying antirheumatic drug(s) (DMARD). She explained that she would prefer to stay without prescription medication as long as possible unless she is not able to manage. She understands that she may need to reconsider her decision if labs and x-rays revealed progression of destructive changes. Assessment & Plan (01/14/2019 10:42 PM EDT): Since she was not able to tolerate Plaquenil I reviewed with her methotrexate mechanism of action, the fact that it is stronger immunosuppressant and therefore has a greater risk of side effects that need to be monitored regularly at least every 2-3 months. She is informed that methotrexate is taken once a week usually by mouth or subcutaneous injection and takes about 6-8 weeks for therapeutic effect. She is also informed that list of side effects includes side effects occurring to patients treated with methotrexate as part of chemotherapy regimens that require much higher doses infused via IV every day for 6 weeks in a row. She requested less scary option therefore I provided her with her with pamphlet on another disease modifying antirheumatic medication (DMARD)-sulfasalazine and reviewed with her that it may take 3 months for full effect and requires gradually building up the dose from 500 mg twice daily up to 2000 mg twice daily. I requested a new set of lab work today. Postmenopausal 08/23/2018 Assessment & Plan (01/14/2019 10:36 PM EDT): Proper calcium and vitamin D supplementation. Daily weightbearing exercises. Fall and fracture prevention strategies. Gastroesophageal reflux disease without esophagi tis 06/06/2018 Assessment & Plan (01/26/2021 12:34 PM EDT): Avoid late, large, spicy meals. Keep headboard elevated at 45 angle for nighttime. Assessment & Plan (01/14/2019 10:36 PM EDT): Avoid late, large, spicy meals. Keep headboard elevated at 45 angle for nighttime. Carpal tunnel syndrome of right wrist 06/06/2018 Assessment & Plan (01/26/2021 12:34 PM EDT): Joint protection, energy conservation techniques. Avoid extend that writing, repetitive motion. Continue using assistive devices and splinting as educated by OT. If symptoms progress may need to consider local steroid injection. Assessment & Plan (01/14/2019 10:35 PM EDT): Avoid extended writing, repetitive motion . Joint protection, energy conservation. Assistive devices and splinting as educated by OT. Other insomnia 03/08/2018 Chronic fatigue 03/08/2018 Class 3 obesity with serious comorbidity in adul t 03/08/2018 Assessment & Plan (01/26/2021 12:28 PM EDT): Portion control. Limit concentrated sugars, saturated fats and calories in the diet. Keep well-hydrated. If unable to achieve expected goal consider formal dietary/nutritional support. Assessment & Plan (01/14/2019 10:29 PM EDT): Portion control. Limit concentrated sugars, saturated fats and calories in the diet. Keep well-hydrated. If unable to achieve expected goal consider formal dietary/nutritional support. Fibromyalgia 03/08/2018 Assessment & Plan (01/26/2021 12:33 PM EDT): Continue mindfulness approach as educated by book written by Dr Dave Watkins Full catastrophe living Assessment & Plan (01/14/2019 10:35 PM EDT): Continue mindfullness approach as educated by Dr. Dave Sood in his book Full catastrophe living Primary osteoarthritis involving multiple joints 03/08/2018 Assessment & Plan (01/26/2021 12:29 PM EDT): Joint protection, energy conservation. Gentle, regular exercise routine. Avoid falls, injuries, overuse. Work on bringing her body weight as close as possible to ideal range for her height. She may benefit from topical cream such as Arnica, Biofreeze, Aspercreme versus medicated patches such as salonpas, icy hot patch 2-3 times daily and if necessary at bedtime x 3 weeks. May need to consider local steroid injection if above measures successful. Assessment & Plan (01/14/2019 10:30 PM EDT): Joint protection, energy conservation. Gentle ROM, stretching & muscle strengthening exercises. Avoid falls, injuries, overuse. Work on reducing body weight as close as possible to ideal body weight for her height. Topical cream vs patch 2-3 x/ day as needed. Consider local steroid injection if not better or worse. Status post right hip replacement 03/08/2018 Vitamin D insufficiency 03/08/2018 Assessment & Plan (01/14/2019 10:30 PM EDT): Take 3000 units of vitamin D daily to replace deficit. Resolved Problems Problem Noted Date Diagnosed Date Resolved Date Family history of rheumatoid arthritis 06/06/2018 01/09/2019 Arthralgia of multiple sites 03/08/2018 03/08/2018 Encounters Date Type Department Care Team Description 03/31/2025 1:00 PM EDT Telemedicine - audio only [facility] [address] [place], [place] [id number] Chacha Holbrook PA-C Breast hypertrophy in female (Primary Dx) from Last 3 Months Immunizations Immunization Administration Dates Next Due COVID-19 (Pre-05/15) Pfizer Vaccine, mRNA, PF ,10/24/2020 Social History Tobacco Use Types Packs/Day Years Used Date Smoking Tobacco: Former Cigarettes 0 11/24/1969 - 10/26/2019 Smokeless Tobacco: Former Tobacco Cessation:Counseling Given: Not Answered Comments:Quit in 2019, went back Jul 2024, [...] Orientation Straight 11/11/2020 8: 08 AM EDT Last Filed Vital Signs Vital Sign Reading Time Taken Comments Blood Pressure 130/82 09/30/2024 1:11 PM EDT Pulse 102 09/30/2024 1:11 PM EDT Temperature 36.3 C (97.4 F) 06/26/2023 1:49 PM EST Respiratory Rate 16 06/26/2023 11:24 AM EST Oxygen Saturation 98% 06/26/2023 1:49 PM EST Inhaled Oxygen Concentration - - Weight 84.6 kg (186 lb 6.4 oz) 09/30/2024 1:11 P M EDT Height 154.2 cm (5' 0.71 ) 09/30/2024 1:11 PM ED T Body Mass Index 35.56 09/30/2024 1:11 PM EDT Plan of Treatment Upcoming Encounters Date Type Department Care Team (Late st Contact Info) Description 04/15/2025 8:00 AM EDT Pre-Admission Testing Pre Procedure Evaluation 30 [place] [address] Zack Huizar MD [address] [place] [address], [address] [place] [address] 04/16/2025 Hospital Encounter OR Admitting Dept - Virtual Department [address] [place] [address] Zack Huizar MD [address] [place] [address], [address] [place] [address] 04/16/2025 Procedure Pass OR Admitting Dept - Virtual Department [address] [place] [address] 05/22/2025 1:00 PM EDT Office Visit [facility], Allergy and Critical Care Medicine [address] [place] [address] Westley Katz MD [address] [place] [phone] [email or web address] [email or web address] Procedures Name Priority Associated Diagnoses Date/Ti me REDUCTION BREAST breast hypertrophy Health Maintenance Due Date Last Done Comments LIPID PANEL 1960 DEPRESSION SCREENING 1970 SMOKING Hx and SMOKELESS TOBACCO SCREENING 1971 HEPATITIS C SCREENING 1976 MAMMOGRAM 1998 COLOGUARD 2003 FIT TEST 2003 FOBT 2003 SIGMOIDOSCOPY 2003 VIRTUAL COLONOSCOPY 2003 PNEUMOCOCCAL VACCINES (50+ years) (2 of 2 - PCV) 04/04/2012 04/04/2011 CREATININE LEVEL 01/15/2022 01/15/2021, , 08/23/2018, Additional history exists POTASSIUM LEVEL 01/15/2022 01/15/2021, 12/22, 08/23/2018, Additional history exists Adult Td,Tdap Booster 07/03/2022 07/03/2012 SCREENING FOR DIABETES 01/16/2024 01/15/2021 INFLUENZA VACCINE (#1) 2025 , 06/11/2019, 04/24/2018, Additional history exists COVID-19 VACCINE ( season) 2025 11/14/2020, 10/24/2020 COLONOSCOPY 11/26/2030 11/26/2020 COLORECTAL CANCER SCREENING 11/26/2030 RSV VACCINE (1 - 1-dose 75+ series) 2033 OSTEOPOROSIS SCREENING INITIAL (ONE-TIME) Completed 05/23/2019 ZOSTER VACCINES Completed 08/07/2020, 04/15/2020 HEPATITIS A VACCINES Aged Out No long er eligible based on patient's age to complete this topic HIB VACCINES Aged Out No longer eligi ble based on patient's age to complete this topic MENINGOCOCCAL VACCINES (ACWY) Aged Out No longer eligible based on patient's age to complete this topic MENINGOCOCCAL VACCINES (B) Aged Out N o longer eligible based on patient's age to complete this topic Medical Devices Implanted Type Area Black Top Spreader Machine Operator Device Identifier Shelf Expiration Date Model / Serial / Lot Prosthetic Joint Prosthetic Joint Right: Hip Procedures Procedure Name Priority Date/Time Associated Diagnosis Comments COMPREHENSIVE METABOLIC PANEL Routine 01/15/2021 12:43 PM EDT Inflammatory arthritis Gastroesophageal reflux disease without esophagitis ENDOSCOPY, COLON 11/26/2020 7:15 AM EDT BD DXA AXIAL (SPINE) WITH HIP Routine 05/23/2019 10:49 AM EDT Inflammatory arthritis Gastroesophageal reflux disease without esophagitis Family history of rheumatoid arthritis from Last 3 Months or Most Recently Relevant to Health Maintenance Results * Comprehensive metabolic panel (01/15/2021 12:43 PM EDT) SODIUM 137 133 - 146 mmol/L [facility] POTASSIUM 4.3 3.3 - 5.1 mmol/L [facility] Comment:Specimen slightly he molyzed, result may be falsely elevated. CHLORIDE 99 96 - 108 mmol/L [facility] CO2 26 21 - 35 mmol/L [facility] BUN 10 6 - 19 mg/dL [facility] CREATININE 0.50 0.5 - 1.5 mg/dL [facility] GLUCOSE 88 70 - 99 mg/dL [facility] ALBUMIN 4.4 3.9 - 4.8 g/dL [facility] TOTAL PROTEIN 7.8 6.5 - 8.0 g/dL [facility] CALCIUM 10.0 8.4 - 10.3 mg/dL [facility] ALKALINE PHOSPHATASE 117 39 - 117 U/L [facility] TOTAL BILIRUBIN 0.4 0.0 - 1.2 mg/dL [facility] AST 17 0 - 37 U/L [facility] ALT 12 0 - 40 U/L [facility] GLOBULIN 3.4 1 - 4.8 g/dL [facility] EGFR 104 >59 mL/min/1.7 3m2 [facility] Comment:Estimated glomerular filtration rate calculated using the CKD-EPI equation. ANION GAP 16 10 - 20 mmol/L [facility] Blood 01/15/2021 12:4 3 PM EDT 01/15/2021 12:49 PM EDT us Beth Sanderson MD LAB BLOOD ORDERABLES Fin al Result Performing Organization Address City/State/[facility] Co de Phone Number [address] [address] * ENDOSCOPY, COLON (11/26/2020 7:15 AM EDT) Narrative Transcriptions Lisseth Chandler MD - 11/26/2020 7:15 AM EDT Patient Name: Angeline Wilks Attending MD:: LISSETH CHANDLER MD Procedure Date: 11/26/2020 7:15 AM Date of : 1960 Age: 60 Admit Type: Outpatient Gender: Female Room: [place] [address] Referring MD: JODEE STRAUSS MD Exam Type: Colonoscopy Indications: Follow-up of uncomplicated diverticulitis Medications: Monitored Anesthesia Care Procedure: Informed consent was obtained from the patient after discussion of the indications, limitations, alternatives, benefits, and risks of the procedure. Risks specifically discussed include but are not limited to medication reactions, missed lesions, bleeding, perforation, or the need for emergentsurgery. Throughout the procedure, the patient's bloodpressure, pulse, end-tidal CO2, and oxygen saturations were monitored continuously. The Olympus adult variable colonoscope [id number] #1was introduced through the anus and advanced to the terminal ileum, with identification of theappendiceal orifice and IC valve. The colonoscopy was performed without difficulty. The patient tolerated theprocedure well. The quality of the bowel preparation wasgood. Complications: No immediate complications. Estimated blood loss:None. Findings: The terminal ileum appeared normal. A 5 mm polyp was found in the recto-sigmoid colon.The polyp was sessile. The polyp was removed with a cold snare. Resection and retrieval were complete. There was a small lipoma, in the proximal transverse colon. Examination of the right colon was repeated in retroflexion and again in NBI. Retroflexion was also performed in the rectum. Multiple diverticula were found in the entirecolon. The exam was otherwise without abnormality. Impression: - The examined portion of the ileum was normal. - One 5 mm polyp at the recto-sigmoid colon, removed with a cold snare. Resected and retrieved. - Diverticulosis in the entire examined colon. - The examination was otherwise normal. Recommendation: - Patient has a contact number available for emergencies. The signs and symptoms of potential delayed complications were discussed with thepatient. Return to normal activities tomorrow. Writtendischarge instructions were provided to the patient. - Await pathology results. - Repeat colonoscopy for surveillance based on pathology results. Lisseth Chandler LISSETH CHANDLER MD 11/26/2020 8:32:40 AM This report has been signed electronically. Number of Addenda: 0 Note Initiated On: 11/26/2020 7:15 AM Procedure Code(s): --- Professional --- 35542, Colonoscopy, flexible; with removal of tumor(s), polyp(s), or other lesion(s) by snare technique --- Technical --- 67715, Colonoscopy, flexible; with removal of tumor(s), polyp(s), or other lesion(s) by snare technique CPT copyright 2018 [employer]. All rights reserved. The codes documented in this report are preliminary and upon assistant refinery operator reviewmay be revised to meet current compliance requirements. Procedure Date: 11/26/2020 7:15:[address] [place], [place] [id number] us Jodee Strauss MD GI PROCEDURE ORDERABLES Final R esult * BD DXA AXIAL (SPINE) WITH HIP (05/23/2019 10:49 AM EDT) Anatomical Region Laterality Modality Bone Density Bone Density 05/23/2019 11:3 2 AM EDT Impressions 05/23/2019 11:36 AM EDT Lumbar spine and LEFT hip bone mineral density within normal limits. POS - [id number] Narrative 05/23/2019 11:36 AM EDT EXAM: BD DXA AXIAL (SPINE) WITH HIP HISTORY: - MENOPAUSAL [REL HX] COMPARISON: None. FINDINGS: This is a 58-year-old woman, postmenopausal, perceived height loss of 3 inches. Prior RIGHT hip replacement, therefore RIGHT hip was not evaluated. Evaluation of the lumbar spine and LEFT hip was performed and felt to be technically adequate. Total bone mineral density in the L1-L4 vertebral bodies was calculated at 1.022 gm/cm2 with a T-score of -0.2 falling within the WHO classification of normal. Z-score of 1.2. Total bone mineral density in the LEFT hip was calculated at 0.843 gm/cm2 with a T-score of -0.8 falling within the WHO classification of normal. Z-score of 0.2. Procedure Note Elaine Fischer MD - 05/23/2019 EXAM: BD DXA AXIAL (SPINE) WITH HIP HISTORY: - MENOPAUSAL [REL HX] COMPARISON: None. FINDINGS: This is a 58-year-old woman, postmenopausal, perceived height loss of 3inches. Prior RIGHT hip replacement, therefore RIGHT hip was notevaluated. Evaluation of the lumbar spine and LEFT hip was performed and felt to betechnically adequate. Total bone mineral density in the L1-L4 vertebral bodies was calculated at1.022 gm/cm2 with a T-score of -0.2 falling within the WHO classificationof normal. Z- score of 1.2. Total bone mineral density in the LEFT hip was calculated at 0.843 gm/wp9bzju a T-score of -0.8 falling within the WHO classification of normal.Z-score of 0.2. IMPRESSION: Lumbar spine and LEFT hip bone mineral density within normal limits. POS - [id number] Beth Sanderson MD [facility] [place] BONE DENSITY DEXA Final Result from Last 3 Months or Most Recently Relevant to Health Maintenance Insurance MEDICARE PART A & B [facility] FULL MEDICARE PART A & B [facility] NET FULL MEDICARE PART A & B [facility] FULL MEDICARE PART A & B [facility] FULL MEDICARE PART A & B [facility] [id number] [facility] NET FULL MEDICARE PART A & B [facility] [place] [place] [id number] [facility] NET FULL MEDICARE PART A & B [facility] FULL MEDICARE PART A & B [facility] FULL MEDICARE PART A & B [facility] FULL Care Teams Household Appliances Salesperson Relationship Specialty Start Date End Date Jodee Strauss MD [address] [place] [phone] [email or web address] PCP - General Internal Medicine 11/01/23 Additional Source Comments The information contained in this document represents components of the legal health record. It is not the complete legal health record.[facility]
--- OUTSIDE RECORDS SUMMARY | 2025-04-03 11:33 | XMS_ITS | Encounter Summary ---
Author Organization [facility] Address [address] [place] [address] [place] [address] Phone Care Team Providers Care Plasterer Tender Name Role Phone Nolan Gee MD Primary Care Provider [phone] Nolan Gee MD Primary Care Provider [phone] Encounter Details Date Type Department Care Team (Late Contact Info) Description 12/10/2021 Procedure Pass Echo Lab [facility] [address] [place] [address] Social History Tobacco Use Types Packs/Day Years [...] EDT Pre-Admission Testing Pre Procedure Evaluation [address] [place] [address] Zack Huizar MD [address] [place] [address] 04/16/2025 Hospital Encounter OR Admitting Dept - Virtual Department [address] [place] [address] Zack Huizar MD [address] [facility], [address] [place] [address] [email or web address] 04/16/2025 Procedure Pass OR Admitting Dept - Virtual Department [address] [place] [address] 05/22/2025 1:00 PM EDT Office Visit [facility], Allergy [facility] Critical Care Medicine [address] [facility] [place] [address] Westley Katz MD [address] [place] [address] [email or web address] Scheduled Procedures Name Priority Associated Diagnoses Date/Ti me REDUCTION BREAST breast hypertrophy documented as of this encounter Visit Diagnoses Not on filedocumented in this encounter Care Teams Plasterer Tender Relationship Specialty Start Date End Date Nolan Gee MD PCP - General Internal Medicine 12/11/17 10/31/23 Nolan Gee MD [address] [place] [address] PCP - General Internal Medicine 11/01/23 documented as of this encounter Additional Source Comments The information contained in this document represents components of the legal health record. It is not the complete legal health record.[facility]
--- OUTSIDE RECORDS SUMMARY | 2025-04-03 11:33 | XMS_ITS | Encounter Summary ---
Author Organization [facility] Address [address] [place] [address] Phone Care Team Providers Care Voice Over Announcer Name Role Phone Nolan Gee MD Primary Care Provider [phone] Nolan Gee MD Primary Care Provider [phone] Encounter Details Date Type Department Care Team (Latest Contact Info) Description 11/24/2020 Transcribe Orders Virtual Department [address] [place] [address] Daniel Nunez MD [address] [place] [phone] [email or web address] Pre-procedure lab exam (Primary Dx) Social History Tobacco Use Types [...] EDT Pre-Admission Testing Pre Procedure Evaluation [address] [place] [address] Zack Huizar MD 40 [facility], [address] [place] [address] 04/16/2025 Hospital Encounter OR Admitting Dept - Virtual Department [address] [place] [address] Zack Huizar MD [address] [place] [address], [address] [place] [address] [email or web address] 04/16/2025 Procedure Pass OR Admitting Dept - Virtual Department [address] [place] [address] 05/22/2025 1:00 PM EDT Office Visit [facility], Allergy and Critical Care Medicine [address] [place] [address] [place] [address] Westley Katz MD [address] [place] [phone] [email or web address] Scheduled Procedures Name Priority Associated Diagnoses Date/Ti me REDUCTION BREAST breast hypertrophy documented as of this encounter Results * COVID-19 PCR Order (11/25/2020 9:15 AM EDT) COVID-19 Comment [id number] [facility] COVID Testing Status In-house testing being performed [facility] 11/25/2020 9:15 AM EDT 11/25/2020 10:22 AM EDT us Daniel Nunez MD BODY FLUIDS AND STOOLS ORDERA BLES Final Result [address] [address] documented in this encounter Visit Diagnoses Diagnosis Pre-procedure lab exam- Primary Pre-procedural laboratory examination documented in this encounter Care Teams Voice Over Announcer Relationship Specialty Start Date End Date Nolan Gee MD [email or web address] PCP - General Internal Medicine 12/11/17 10/31/23 Nolan Gee MD [address] [place] [address] [email or web address] PCP - General Internal Medicine 11/01/23 documented as of this encounter Additional Source Comments The information contained in this document represents components of the legal health record. It is not the complete legal health record.[facility]
== END 2025-04-03 10:55 | disposition home or self-care (01) ==
LOC: HO.RHES 09:46
PROVIDERS: PCP Internal Medicine; Visit Provider Student in an Organized Health Care Education/Training Program
DX: M19.041 Primary osteoarthritis, right hand (principal); M19.042 Primary osteoarthritis, left hand; M85.89 Other specified disorders of bone density and structure, multiple sites
CPT/HCPCS: 99214; G2211

== ENCOUNTER 2025-04-03 09:45 | Outpatient (REF) | payer MEDICARE, MEDICAID, SELFPAY ==
[2025-04-03 13:11] LABS: MANUAL DIFF FLAG NO
[2025-04-03 13:25] LABS: Hematocrit 42.5 % (37.0-47.0); Hemoglobin 14.2 g/dl (12.0-16.0); Imm Gran Abs Auto 0.01 X10*3/uL (0.00-0.03); Imm Gran Pct Auto 0.2 % (0.0-0.4); Lymphocytes Absolute Auto 1.5 X10*3/uL (1.2-4.9); Mean Corpuscular HGB Conc 33.4 g/dl (31.0-35.0); Mean Corpuscular Hemoglobin 31.1 pg (27.0-33.0); Mean Corpuscular Volume 93.0 fL (80.0-98.0); NRBC Abs Auto 0.000 X10*3/uL (0.0-0.012); NRBC Pct Auto 0.0 /100WBC (0.0-0.2); Platelet Count 374 X10*3/uL (160-400); Red Blood Count 4.57 X10*6/uL (4.20-5.50); White Blood Count 6.5 X10*3/uL (4.8-10.8)
[2025-04-03 13:40] LABS: Alanine Aminotransferase 18 U/L (0-31); Albumin Level 4.4 g/dL (3.5-5.0); Alkaline Phosphatase 103 U/L (39-117); Anion Gap 13 (12-20); Aspartate Amino Transferase 22 U/L (5-31); Blood Urea Nitrogen 15 mg/dL (9-16); Calcium 9.4 mg/dL (8.4-10.2); Carbon Dioxide 24 mmol/L (22-29); Chloride 104 mmol/L (96-108); Estimated Glomerular Filt Rate > 60; Potassium 3.9 mmol/L (3.3-5.1); Sodium 137 mmol/L (135-145); Total Protein 7.4 g/dL (6.5-8.0)
== END 2025-04-03 09:46 | disposition home or self-care (01) ==
LOC: HO.HKASLDS 09:45
PROVIDERS: Visit Provider Student in an Organized Health Care Education/Training Program
DX: M19.042 Primary osteoarthritis, left hand (principal); M19.041 Primary osteoarthritis, right hand; M85.89 Other specified disorders of bone density and structure, multiple sites; I10 Essential (primary) hypertension; Z79.899 Other long term (current) drug therapy
CPT/HCPCS: 36415; 80053; 82306; 85025; 85652; 86140; 99212

== ENCOUNTER 2025-05-08 09:50 | Outpatient (REF) | payer MEDICARE, MEDICAID, SELFPAY ==
--- NOTE | ~2025-05-08 | MM_ITS ---
EXAMINATION: DXA BONE DENSITY AXIAL HISTORY: M85.89 - Other specified disorders of bone density and structure, multip... TECHNIQUE: [employer] Dual energy absorptiometry (DEXA) of the lumbar spine and distal radius was performed. The hips were not evaluated due to a history of bilateral total hip arthroplasty. COMPARISON: Comparison is made with the prior examination dated 03/17/2023. FINDINGS: The bone mineral density of the lumbar spine is 1.131 g/cm2, corresponding to a T-score of -0.4, and a Z-score of 0.6. This is indicative of normal bone mineral density. This represents a BMD change of 0.3% compared to the prior exam. This is not statistically significant. The bone mineral density of the distal radius is 0.644 g/cm2, corresponding to a T-score of -2.6, and a Z-score of -1.1. This is indicative of osteoporosis. MM/XR DEXA axial skeleton IMPRESSION: Based on bone mineral density, and according to World Health Organization (WHO) criteria, the diagnosis is consistent with osteoporosis of the distal radius. Statistically, 68% of repeat scans fall within 1 SD (+/- 0.010 g/cm2 for AP spine L1-L4) and 1 SD (+/- 0.012 g/cm2 for femur total) FRAX is a trademark of the [employer] [place] [facility] Metabolic Bone Disease, a World Health Organization (WHO) Collaborating Center. Electronically signed by: Mike Velez MD 05/08/2025 10:18 AM EDT
--- OUTSIDE RECORDS SUMMARY | 2025-05-08 11:30 | XMS_ITS | Clinical Summary ---
Author Organization [facility] Address [address] [place] [address] Phone Care Team Providers Care Chief Clerk Name Role Phone Jodee Strauss MD Primary Care Provider [phone] Allergies Active Allergy Reactions Criticality Noted Date [...] pain (specific location in comments). 3 Active gabapentin (NEURONTIN) 100 MG capsule Take 100 mg by mouth daily. 3 06/21/20 23 Discontinu ed(Therapy Completed/ No Longer Necessary) Active Problems Problem Noted Date Diagnosed Date [...] Encounters Date Type Department Care Team Description 05/07/2025 Procedure Pass OR Admitting Dept - Virtual Department [address] [place] [address] 04/11/2025 Transcribe Orders [facility] [address], [address] [place] [address] Mitch Christensen Atherosclerosis of coronary artery with unstable angina pectoris, unspecified vessel or lesion type, unspecified whether kiana or transplanted heart (Primary Dx) 04/11/2025 Transcribe Orders [facility] [address], [address] [place] [address] Jodee Strauss MD Atherosclerosis of kiana coronary artery of kiana heart without angina pectoris (Primary Dx) 04/09/2025 Telephone [facility] Surgery [address] [place] [address] Zack Huizar MD Abnormal ECG 03/31/2025 1:00 PM EDT Telemedicine - audio only [facility] [address] [place] [address] Chacha Holbrook PA-C Breast hypertrophy in female [...] Care Team (Late st Contact Info) Description 05/15/2025 7:30 AM EDT Appointment Non-Invasive Cardiology [address] [place] [address] Jodee Strauss MD [address] [place] [address] 05/22/2025 1:00 PM EDT Office Visit [facility] 10 [facility] [place] [address] Westley Katz MD 30 [place] [address] 09/09/2025 11:00 AM EST Office Visit [facility] [address] Floor, [address] [place] [address] Bo Castro DO 22 [facility] [address] [place] [address] Health Maintenance Due Date Last Done Comments DEPRESSION SCREENING 1970 SMOKING Hx and SMOKELESS TOBACCO SCREENING 1971 HEPATITIS C SCREENING 1976 LIPID PANEL 1976 MAMMOGRAM 1998 COLOGUARD 2003 FIT TEST [...] 06/11/2019, 04/24/2018, Additional history exists COVID-19 VACCINE (3 - season) 2025 11/14/2020, 10/24/2020 COLONOSCOPY 11/26/2030 11/26/2020 [...] this topic Medical Devices Implanted Type Area Color Technician Device Identifier Shelf Expiration Date Model / Serial / Lot Prosthetic Joint Prosthetic Joint Right: Hip Procedures Procedure Name Priority Date/Time Associated Diagnosis Comments OUTSIDE IMAGING 04/22/2025 COMPREHENSIVE METABOLIC PANEL Routine 01/15/2021 12:43 PM EDT Inflammatory arthritis Gastroesophageal reflux disease without esophagitis ENDOSCOPY, COLON 11/26/2020 7:15 AM EDT BD DXA AXIAL (SPINE) WITH HIP Routine 05/23/2019 10:49 AM EDT Inflammatory arthritis Gastroesophageal reflux disease without esophagitis Family history of rheumatoid arthritis from Last 3 Months or Most Recently Relevant to Health Maintenance Results * Outside Imaging Report Only (04/22/2025) us Scanning Interface Provider IMG XR CHEST Shelia l Result * Comprehensive metabolic panel (01/15/2021 12:43 PM EDT) SODIUM 137 133 - 146 mmol/L [facility] POTASSIUM 4.3 3.3 - 5.1 mmol/L [facility] Comment:Specimen slightly he molyzed, result may be falsely elevated. CHLORIDE 99 96 - 108 mmol/L [facility] CO2 26 21 - 35 mmol/L [facility] BUN 10 6 - 19 mg/dL [facility] CREATININE 0.50 0.5 - 1.5 mg/dL [facility] GLUCOSE 88 70 - 99 mg/dL [facility] ALBUMIN 4.4 3.9 - 4.8 g/dL [facility] TOTAL PROTEIN 7.8 6.5 - 8.0 g/dL [facility] CALCIUM 10.0 8.4 - 10.3 mg/dL [facility] ALKALINE PHOSPHATASE 117 39 - 117 U/L [facility] TOTAL BILIRUBIN 0.4 0.0 - 1.2 mg/dL [facility] AST 17 0 - 37 U/L [facility] ALT 12 0 - 40 U/L [facility] GLOBULIN 3.4 1 - 4.8 g/dL [facility] EGFR 104 >59 mL/min/1.7 3m2 [facility] Comment:Estimated glomerular filtration rate calculated using the CKD-EPI equation. ANION GAP 16 10 - 20 mmol/L [facility] Blood 01/15/2021 12:4 3 PM EDT 01/15/2021 12:49 PM EDT us Beth Sanderson MD LAB BLOOD ORDERABLES Fin al Result [facility] [address] [place] [address] * ENDOSCOPY, COLON (11/26/2020 7:15 AM EDT) Narrative Transcriptions Lisseth Nunez MD - 11/26/2020 7:15 AM EDT Patient Name: Angeline Wilks Attending MD:: LISSETH NUNEZ MD Procedure Date: 11/26/2020 7:15 AM Date of : 1960 Age: 60 Admit Type: Outpatient Gender: Female Room: [place] [address] Referring MD: JODEE STRAUSS MD Exam Type: [...] monitored continuously. The Olympus adult variable colonoscope [id number] #1was introduced through the anus and advanced [...] for surveillance based on pathology results. Lisseth Nunez LISSETH NUNEZ MD 11/26/2020 8:32:40 AM This report has been signed electronically. Number of Addenda: 0 Note Initiated On: 11/26/2020 7:15 AM Procedure Code(s): --- Professional --- 80864, Colonoscopy, flexible; with removal of tumor(s), polyp(s), or other lesion(s) by snare technique --- Technical --- 38759, Colonoscopy, flexible; with removal of tumor(s), polyp(s), or other lesion(s) by snare technique CPT copyright 2018 [employer]. All rights reserved. The codes documented in this report are preliminary and upon stadium attendant reviewmay be revised to meet current compliance requirements. Procedure Date: 11/26/2020 7:15:[address] [place] [address] us Jodee Strauss MD GI PROCEDURE ORDERABLES [...] the LEFT hip was calculated at 0.843 gm/un7nerm a T-score of -0.8 falling within the WHO classification of normal.Z-score of 0.2. IMPRESSION: Lumbar spine and LEFT hip bone mineral density within normal limits. POS - [id number] Beth Sanderson MD [facility] [place] BD BONE DENSITY DEXA Final Result from Last 3 Months or Most Recently Relevant to Health Maintenance Insurance MEDICARE PART A & B [facility] MEDIC[facility] REPLACEMENT MEDICARE PART A & B [facility] MEDICARE REPLACEMENT MEDICARE PART A & [facility] & B Member Subscriber Plan / Payer ( fective 2010-) Name:Angeline Wilks Member ID:[id number] Relation to Subscriber:Self Name:Angeline Wilks Subscriber ID:[id number] Payer ID:[id number] Group ID:Not on file Type:Medicare Address: [employer] [address] MEDICARE PART A & B [facility] MEDIC[facility] REPLACEMENT MEDICARE PART A & B [facility] MEDICARE PART A & B [facility] [facility] MEDICARE REPLACEMENT MEDICARE PART A & B [facility] [facility] MEDICARE REPLACEMENT MEDICARE PART A & B [facility] MEDICARE REPLACEMENT Care Teams Chief Clerk Relationship Specialty Start Date End Date Jodee Strauss MD [address] [place] [address] [email or web address] PCP - General Internal Medicine 11/01/23 Additional Source Comments The information contained in this document represents components of the legal health record. It is not the complete legal health record.[facility]
--- OUTSIDE RECORDS SUMMARY | 2025-05-08 11:30 | XMS_ITS | Encounter Summary ---
Author Organization [facility] Address [address] [place] [address] Phone Care Team Providers Care Warp Tester Name Role Phone Nolan Gee MD Primary Care Provider [phone] Nolan Gee MD Primary Care Provider [phone] Encounter Details Date Type Department Care Team (Late st Contact Info) Description 12/10/2021 Procedure Pass Echo [facility] [address] [place] [address] Social History Tobacco Use Types Packs/Day Years [...] 7:30 AM EDT Appointment Non-Invasive Cardiology [address] [place] [address] Nolan Gee MD [address] [place] [address] 05/22/2025 1:00 PM EDT Office Visit [facility] [address] [place] [address] Westley Katz MD [address] [place] [address] 09/09/2025 11:00 AM EST Office Visit [facility] 22 [facility] 3rd Floor, [address] [place] [address] Bo Castro DO 22 [facility] [address] [place] [address] [email or web address] documented as of this encounter Visit Diagnoses Not on filedocumented in this encounter Care Teams Warp Tester Relationship Specialty Start Date End Date Nolan Gee MD PCP - General Internal Medicine 12/11/17 10/31/23 Nolan Gee MD [address] [place] [address] [email or web address] PCP - General Internal Medicine 11/01/23 documented as of this encounter Additional Source Comments The information contained in this document represents components of the legal health record. It is not the complete legal health record.[facility]
--- OUTSIDE RECORDS SUMMARY | 2025-05-08 11:30 | XMS_ITS | Encounter Summary ---
Author Organization [facility] Address [address] [place] [address] Phone Care Team Providers Care Echocardiography Radiology Technologist Name Role Phone Nolan Gee MD Primary Care Provider [phone] Nolan Gee MD Primary Care Provider [phone] Encounter Details Date Type Department Care Team (Late st Contact Info) Description 11/26/2020 Procedure Pass [facility] Endoscopy Admitting Dept Virtual Department [address] [place] [address] Social History Tobacco Use Types Packs/Day Years [...] 7:30 AM EDT Appointment Non-Invasive Cardiology [address] [place] [address] Nolan Gee MD [address] [place] [address] 05/22/2025 1:00 PM EDT Office Visit [facility] [address] [place] [address] Westley Katz MD [address] [place] [address] 09/09/2025 11:00 AM EST Office Visit [facility] 22 [facility] 3rd Floor, [address] [place] [address] oB Castro DO 22 [facility] [address] [place] [address] documented as of this encounter Visit Diagnoses Not on filedocumented in this encounter Care Teams Echocardiography Radiology Technologist Relationship Specialty Start Date End Date Nolan Gee MD PCP - General Internal Medicine 12/11/17 10/31/23 Nolan Gee MD [address] [place] [address] PCP - General Internal Medicine 11/01/23 documented as of this encounter Additional Source Comments The information contained in this document represents components of the legal health record. It is not the complete legal health record.[facility]
--- OUTSIDE RECORDS SUMMARY | 2025-05-08 11:30 | XMS_ITS | Encounter Summary ---
Author Organization [facility] Address [address] [place] [address] Phone Care Team Providers Care Frame Table Operator Helper Name Role Phone Nolan Gee MD Primary Care Provider [phone] Nolan Gee MD Primary Care Provider [phone] Reason for Referral * MRI/CAT Scan - Closed Specialty Diagnoses / Procedures Referred By Contac t Referred To Contact Radiology Diagnoses Arthralgia of both hands Procedures MRI Hand (Left) Paloma Vicente MD Phone: tel: fax: Referral ID Status Reason Start Date Expiration Date Visits Re quested Visits Authorized [id number] Closed 02/25/2022 02/25/2023 1 1 Encounter Details Date Type Department Care Team (Latest Contact Info) Description 02/25/2022 Transcribe Orders Virtual Department 30 [place] [address] Paloma Vicente MD [address] [place] [address] Arthralgia of both hands (Primary Dx) Social [...] 7:30 AM EDT Appointment Non-Invasive Cardiology [address] [place] [address] Nolan Gee MD [address] [place] [address] 05/22/2025 1:00 PM EDT Office Visit [facility] 10 [facility] [place] [address] Westley Katz MD 30 [place] [address] 09/09/2025 11:00 AM EST Office Visit [facility] 22 [facility] 3rd Floor, [address] [place] [address] Bo Castro DO [address] [address] [email or web address] Scheduled Orders Name Type Priority Associated Diagnoses Orde r Schedule MRI Hand (Left) Imaging Routine Arthralgia of both hands Expected: 02/25/2022, Expires: 05/28/2022 documented as of this encounter Visit Diagnoses Diagnosis Arthralgia of both hands- Primary documented in this encounter Care Teams Frame Table Operator Helper Relationship Specialty Start Date End Date Nolan Gee MD PCP - General Internal Medicine 12/11/17 10/31/23 Nolan Gee MD [address] [place] [address] [email or web address] PCP - General Internal Medicine 11/01/23 documented as of this encounter Additional Source Comments The information contained in this document represents components of the legal health record. It is not the complete legal health record.[facility]
--- OUTSIDE RECORDS SUMMARY | 2025-05-08 11:30 | XMS_ITS | Encounter Summary ---
Author Organization [facility] Address [address] [place] [address] [address] [place] [address] Phone Care Team Providers Care Grating Machine Operator Name Role Phone Nolan Gee MD Primary Care Provider [phone] Nolan Gee MD Primary Care Provider [phone] Encounter Details Date Type Department Care Team (Latest Contact Info) Description 01/09/2019 Ancillary Orders [facility] Rheumatology [address] [place] [address] Beth Sanderson MD 22 [facility], [address] [place] [address] [email or web address] Primary osteoarthritis involving multiple [...] 7:30 AM EDT Appointment Non-Invasive Cardiology [address] [place] [address] Nolan Gee MD [address] [place] [address] 05/22/2025 1:00 PM EDT Office Visit [facility], Allergy and Critical Care Medicine 10 [facility] [place] [address] Westley Katz MD 30 [place] [address] 09/09/2025 11:00 AM EST Office Visit [facility] 22 [facility] 3rd Floor, [address] [place] [address] Edith Castro DO 22 [facility] [address] [place] [address] documented as of this encounter Results * [...] arthritis documented in this encounter Care Teams Grating Machine Operator Relationship Specialty Start Date End Date Nolan Gee MD [email or web address] PCP - General Internal Medicine 12/11/17 10/31/23 Nolan Gee MD [address] [place] [address] PCP - General Internal Medicine 11/01/23 documented as of this encounter Additional Source Comments The information contained in this document represents components of the legal health record. It is not the complete legal health record.[facility]
--- OUTSIDE RECORDS SUMMARY | 2025-05-08 11:30 | XMS_ITS | Encounter Summary ---
Author Organization [facility] Address [address] [place] [address] [place] [address] Phone Care Team Providers Care Watch Dial Printer Name Role Phone Nolan Gee MD Primary Care Provider [phone] Encounter Details Date Type Department Care Team ([facility] st Contact Info) Description 10/29/2024 Telephone [facility] All[facility] [address] [place], [place] [phone] Unknown, Unknown, Social History Tobacco Use Types [...] 7:30 AM EDT Appointment Non-Invasive Cardiology [address] [place] [address] Nolan Gee MD [address] [place] [address] 05/22/2025 1:00 PM EDT Office Visit [facility] 10 [facility] [place] [address] Westley Katz MD [address] [place] [address] 09/09/2025 11:00 AM EST Office Visit [facility] 22 [facility] 3rd Floor, [address] [place] [address] Bo Castro DO 22 [facility] [address] [place] [address] documented as of this encounter Visit Diagnoses Not on filedocumented in this encounter Care Teams Watch Dial Printer Relationship Specialty Start Date End Date Nolan Gee MD [address] [place] [address] PCP - General Internal Medicine 11/01/23 documented as of this encounter Additional Source Comments The information contained in this document represents components of the legal health record. It is not the complete legal health record.[facility]
--- OUTSIDE RECORDS SUMMARY | 2025-05-08 11:30 | XMS_ITS | Encounter Summary ---
Author Organization [facility] Address [address] [place] [address] [place] [address] Phone Care Team Providers Care Community Health Agent Name Role Phone Nolan Gee MD Primary Care Provider [phone] Nolan Gee MD Primary Care Provider [phone] Encounter Details Date Type Department Care Team (Latest Contact Info) Description 11/24/2020 Transcribe Orders Virtual Department 30 [place] [address] Daniel Nunez MD [address] [place] [phone] [email or web address] Pre-procedure lab exam (Primary Dx) Social [...] 7:30 AM EDT Appointment Non-Invasive Cardiology 22 [place] [address] Nolan Gee MD [address] [place] [address] 05/22/2025 1:00 PM EDT Office Visit [facility] 10 [facility] [place] [address] Westley Katz MD 30 [place] [address] 09/09/2025 11:00 AM EST Office Visit [facility] 22 [facility] 3rd Floor, [address] [place] [address] Bo Castro DO 22 [facility] [address] [place] [address] [email or web address] documented as of this encounter Results * COVID-19 PCR Order (11/25/2020 9:15 AM EDT) COVID-19 Comment [id number] [facility] COVID Testing Status In-house testing being performed [facility] 11/25/2020 9:15 AM EDT 11/25/2020 10:22 AM EDT us Daniel Nunez MD BODY FLUIDS AND STOOLS ORDERA BLES Final Result [address] [address] documented in this encounter Visit Diagnoses Diagnosis Pre-procedure lab exam- Primary Pre-procedural laboratory examination documented in this encounter Care Teams Community Health Agent Relationship Specialty Start Date End Date Nolan Gee MD PCP - General Internal Medicine 12/11/17 10/31/23 Nolan Gee MD [address] [place] [address] [email or web address] PCP - General Internal Medicine 11/01/23 documented as of this encounter Additional Source Comments The information contained in this document represents components of the legal health record. It is not the complete legal health record.[facility]
--- OUTSIDE RECORDS SUMMARY | 2025-05-08 11:30 | XMS_ITS | Encounter Summary ---
Author Organization [facility] Address [address] [place] [address] [place] [address] Phone Care Team Providers Care Real Estate Lawyer Name Role Phone Nolan Gee MD Primary Care Provider [phone] Encounter Details Date Type Department Care Team (Late st Contact Info) Description 05/07/2025 Procedure Pass OR Admitting Dept - Virtual Department [address] [place] [address] Social History Tobacco Use Types Packs/Day Years [...] 7:30 AM EDT Appointment Non-Invasive Cardiology [address] [place] [address] Nolan Gee MD [address] [place] [address] 05/22/2025 1:00 PM EDT Office Visit [facility] 10 [facility] [place] [address] Westley Katz MD [address] [place] [address] 09/09/2025 11:00 AM EST Office Visit [facility] 22 [facility] 3rd Floor, [address] [place] [address] Bo Castro DO 22 [facility] [address] [place] [address] documented as of this encounter Visit Diagnoses Not on filedocumented in this encounter Care Teams Real Estate Lawyer Relationship Specialty Start Date End Date Nolan Gee MD [address] [place] [address] PCP - General Internal Medicine 11/01/23 documented as of this encounter Additional Source Comments The information contained in this document represents components of the legal health record. It is not the complete legal health record.[facility]
--- OUTSIDE RECORDS SUMMARY | 2025-05-08 11:31 | XMS_ITS | Encounter Summary ---
Author Organization [facility] Address [address] [place] [address] [place] [address] Phone Care Team Providers Care Aerodynamic Consultant Name Role Phone Nolan Gee MD Primary Care Provider [phone] Nolan Gee MD Primary Care Provider [phone] Encounter Details Date Type Department Care Team (Late st Contact Info) Description 02/24/2022 Transcribe Orders [facility] [address] [place] [address] Paloma Vicente MD [address] [place] [address] Social History Tobacco Use Types Packs/Day Years [...] 7:30 AM EDT Appointment Non-Invasive Cardiology [address] [place] [address] Nolan Gee MD [address] [place] [address] [place] [address] 05/22/2025 1:00 PM EDT Office Visit [facility] [address] [place] [address] Westley Katz MD 30 [place] [address] 09/09/2025 11:00 AM EST Office Visit [facility] 22 [facility] 3rd Floor, [address] [place], [place] [address] Bo Castro DO 22 [facility] [address] [place] [address] documented as of this encounter Visit Diagnoses Not on filedocumented in this encounter Care Teams Aerodynamic Consultant Relationship Specialty Start Date End Date Nolan Gee MD PCP - General Internal Medicine 12/11/17 10/31/23 Nolan Gee MD [address] [place] [address] PCP - General Internal Medicine 11/01/23 documented as of this encounter Additional Source Comments The information contained in this document represents components of the legal health record. It is not the complete legal health record.[facility]
== END 2025-05-08 09:51 | disposition home or self-care (01) ==
LOC: HO.MAMMO 09:50
PROVIDERS: PCP Internal Medicine; Visit Provider Internal Medicine
DX: Z13.820 Encounter for screening for osteoporosis (principal); M85.89 Other specified disorders of bone density and structure, multiple sites
CPT/HCPCS: 77080

== ENCOUNTER → 2025-05-08 10:00 | Outpatient (BNV) | payer MEDICARE, MEDICAID, SELFPAY | PROVIDERS: PCP Internal Medicine; Visit Provider Radiology Diagnostic Radiology | DX: E28.39 Other primary ovarian failure (principal) | CPT/HCPCS: 77080 ==

== ENCOUNTER 2025-06-18 07:27 | Outpatient (REF) | payer MEDICARE, MEDICAID, SELFPAY ==
--- NOTE | ~2025-06-18 | XR_ITS ---
EXAMINATION: XR HIP 2 OR MORE VIEWS LEFT HISTORY: M25.552 - Pain in left hip COMPARISON: Comparison is made with the prior examination dated 12/19/2023. FINDINGS: A single AP view of the pelvis and an additional view of the left hip are submitted. The patient is again noted to be status post left total hip arthroplasty. The orthopedic elements are in anatomic alignment. There is no radiographic evidence of loosening. There is no fracture or dislocation. A right total hip arthroplasty is also noted. There are vascular calcifications. XR/XR hip LT min 2V IMPRESSION: Status post left total hip arthroplasty. Electronically signed by: Mike Velez MD 06/18/2025 09:09 AM ASIYA
--- OUTSIDE RECORDS SUMMARY | 2025-06-21 07:29 | XMS_ITS | Encounter Summary ---
Author Organization [facility] Address [address] [place] [address] Phone Care Team Providers Care Provider Relations Advocate Name Role Phone Nolan Gee MD Primary Care Provider [phone] Nolan Gee MD Primary Care Provider [phone] Encounter Details Date Type Department Care Team (Late Contact Info) Description 12/10/2021 Procedure Pass [facility] [address] [address] Social History Tobacco Use Types Packs/Day Years [...] AM EST Appointment [facility] 30 [place] [address] Westley Katz MD 30 [place] [address] 09/05/2025 9:30 AM EST Office Visit [facility] [address] [place] [address] Westley Katz MD 30 [place] [address] 09/09/2025 11:00 AM EST Office Visit [facility] 22 [facility] 3rd Floor, [address] [place] [address] Bo Castro DO 22 [facility] [address] [place] [address] documented as of this encounter Visit Diagnoses Not on filedocumented in this encounter Care Teams Provider Relations Advocate Relationship Specialty Start Date End Date Nolan Gee MD PCP - General Internal Medicine 12/11/17 10/31/23 Nolan Gee MD [address] [place] [address] PCP - General Internal Medicine 11/01/23 documented as of this encounter Additional Source Comments The information contained in this document represents components of the legal health record. It is not the complete legal health record.[facility]
--- OUTSIDE RECORDS SUMMARY | 2025-06-21 07:29 | XMS_ITS | Encounter Summary ---
Author Organization [facility] Address [address] [place] [address] [place] [address] Phone Care Team Providers Care Pharmaceutical Sales Name Role Phone Nolan Gee MD Primary Care Provider [phone] Encounter Details Date Type Department Care Team ([facility] st Contact Info) Description 10/29/2024 Telephone [facility] 10 [place], [place] [id number] Unknown, Unknown, Social History Tobacco Use Types [...] AM EST Appointment [facility] 30 [place] [address] Westley Katz MD [address] [place] [address] 09/05/2025 9:30 AM EST Office Visit [facility] 10 [place] [address] Westley Katz MD [address] [place] [address] 09/09/2025 11:00 AM EST Office Visit [facility] [address] [place] [address] 3rd Floor, [address] [place] [address] Bo Castro DO [address] [place] [address] documented as of this encounter Visit Diagnoses Not on filedocumented in this encounter Care Teams Pharmaceutical Sales Relationship Specialty Start Date End Date Nolan Gee MD [address] [place] [address] PCP - General Internal Medicine 11/01/23 documented as of this encounter Additional Source Comments The information contained in this document represents components of the legal health record. It is not the complete legal health record.[facility]
--- OUTSIDE RECORDS SUMMARY | 2025-06-21 07:29 | XMS_ITS | Encounter Summary ---
Author Organization [facility] Address [address] [place] [address] [address] [place] [address] Phone Care Team Providers Care Typesetting Supervisor Name Role Phone Nolan Gee MD Primary Care Provider [phone] Nolan Gee MD Primary Care Provider [phone] Encounter Details Date Type Department Care Team (Latest Contact Info) Description 01/09/2019 Ancillary Orders [facility] Rheumatology 22 [place] [address] Beth Sanderson MD 22 [facility], [address] [place] [address] [email or web address] Primary osteoarthritis involving multiple joints; Family history [...] AM EST Appointment [facility] 30 [place] [address] Westley Katz MD 30 [place] [address] 09/05/2025 9:30 AM EST Office Visit [facility] 10 [facility] [place] [address] Westley Katz MD 30 [place] [address] 09/09/2025 11:00 AM EST Office Visit [facility] 22 [facility] 3rd Floor, [address] [place] [address] Edith Castro DO 22 [facility] [address] [place] [address] documented as of this encounter Results * [...] arthritis documented in this encounter Care Teams Typesetting Supervisor Relationship Specialty Start Date End Date Nolan Gee MD PCP - General Internal Medicine 12/11/17 10/31/23 Nolan Gee MD [address] [place] [address] PCP - General Internal Medicine 11/01/23 documented as of this encounter Additional Source Comments The information contained in this document represents components of the legal health record. It is not the complete legal health record.[facility]
--- OUTSIDE RECORDS SUMMARY | 2025-06-21 07:29 | XMS_ITS | Clinical Summary ---
Author Organization [facility] Address [address] [place] [address] Phone Care Team Providers Care Wound/Ostomy Clinical Nurse Specialist Name Role Phone Jodee Strauss MD Primary Care Provider [phone] Allergies Active Allergy Reactions Criticality Noted Date [...] Description 05/28/2025 3:00 PM EST Procedure visit [facility] [address] [place] [address] Akshat Meza CNP Skin lesion of left arm (Primary Dx) 05/23/2025 2:30 PM EDT Office Visit [facility] [address] [place] [address] Akshat Meza CNP EIC (epidermal inclusion cyst) (Primary Dx) 05/22/2025 1:00 PM EDT Office Visit [facility] [address] [place] [address] Westley Katz MD Abnormal CT of the chest (Primary Dx); Screening for lung cancer; Tobacco abuse, in remission 05/15/2025 7:18 AM EDT - 05/15/2025 11:59 PM EDT Hospital Encounter Non-Invasive Cardiology [address] [place] [address] Jodee Strauss MD Discharge Disposition: Home or Self Care 05/15/2025 Ancillary Orders [facility] [address], [address] [place] [address] Jodee Strauss MD Atherosclerosis of [place] coronary artery of [place] heart without angina pectoris (Primary Dx) 05/07/2025 Procedure Pass OR Admitting Dept - Virtual Department [address] [place] [address] 04/11/2025 Transcribe Orders [facility] [address], [address] [place] [address] Mitch Christensen Atherosclerosis of coronary artery with unstable angina pectoris, unspecified vessel or lesion type, unspecified whether [place] or transplanted heart (Primary Dx) 04/11/2025 Transcribe Orders [facility] [address], [address] [place] [address] Jodee Strauss MD Atherosclerosis of [place] coronary artery of [place] heart without angina pectoris (Primary Dx) 04/09/2025 Telephone [facility] [address] [place] [address] Zack Huizar MD Abnormal ECG 03/31/2025 1:00 PM EDT Telemedicine - audio only [facility] [address] [place] [address] Chacha Holbrook PA-C Breast hypertrophy in female [...] AM EST Appointment [facility] [address] [place] [address] Westley Katz MD [address] [place] [address] 09/05/2025 9:30 AM EST Office Visit [facility] [address] [place] [address] Westley Katz MD [address] [place] [address] 09/09/2025 11:00 AM EST Office Visit [facility] 22 [facility] 3rd Floor, [address] [place] [address] Bo Castro DO 22 [facility] [address] [place] [address] Health Maintenance Due Date Last Done Comments [...] this topic Medical Devices Implanted Type Area Marketing Communications Associate Device Identifier Shelf Expiration Date Model / Serial / Lot Prosthetic Joint Prosthetic Joint Right: Hip Procedures Procedure Name Priority Date/Time Associated Diagnosis Comments TISSUE EXAM Routine 05/28/2025 4:35 PM EST Skin lesion of left arm CYST EXCISION Routine 05/28/2025 3:14 PM EST Skin lesion of left arm NC MYOCARDIAL PERFUSION EXERCISE, MULTI Routine 05/15/2025 8:54 AM EDT Atherosclerosis of [place] coronary artery of [place] heart without angina pectoris OUTSIDE IMAGING 04/22/2025 [...] UPPER: Epidermal inclusion cyst. 05/30/2025 1:33 PM [facility] at 1333 EST Clinical History Skin lesion of left arm [L98.9] - Primary 05/30/2025 1:33 PM [facility] Gross Description A. ARM, LEFT; UPPER: [...] a waxy, friable, amorphous singh material. A client care representative section is submitted in a single cassette labeled A1. Grossed by: BENITA Mckoy PA([facility]) 05/30/2025 1:33 PM [facility] Grossed By Alexander Osman 05/30/2025 1:33 PM [facility] Result Priority Level Routine 05/30/2025 1:33 PM [facility] Disclaimer By their signature above, the [...] in this report. 05/30/2025 1:33 PM EST [facility] Tissue - General (Arm, Left) Non-Blood Collection / Unknown 05/28/2025 4:35 PM EST 05/28/2025 4:35 PM EST Akshat Meza CNP LAB PATHOLOGY ORDERABLES Shelia coto Result [address] [address] * CYST EXCISION (05/28/2025 3:14 PM EST) Narrative Aksaht Meza CNP - 05/28/2025 3:14 PM EST [...] in SPECT format, reconstructed tomographically and compared [id number] in short axis, horizontal long axis and [...] EDT) SODIUM 137 133 - 146 mmol/L [facility] POTASSIUM 4.3 3.3 - 5.1 mmol/L [facility] Comment:Specimen slightly he molyzed, result may be falsely elevated. CHLORIDE 99 96 - 108 mmol/L [facility] CO2 26 21 - 35 mmol/L [facility] BUN 10 6 - 19 mg/dL [facility] CREATININE 0.50 0.5 - 1.5 mg/dL [facility] GLUCOSE 88 70 - 99 mg/dL [facility] ALBUMIN 4.4 3.9 - 4.8 g/dL [facility] TOTAL PROTEIN 7.8 6.5 - 8.0 g/dL [facility] CALCIUM 10.0 8.4 - 10.3 mg/dL [facility] ALKALINE PHOSPHATASE 117 39 - 117 U/L [facility] TOTAL BILIRUBIN 0.4 0.0 - 1.2 mg/dL [facility] AST 17 0 - 37 U/L [facility] ALT 12 0 - 40 U/L [facility] GLOBULIN 3.4 1 - 4.8 g/dL [facility] EGFR 104 >59 mL/min/1.7 3m2 [facility] Comment:Estimated glomerular filtration rate calculated using the CKD-EPI equation. ANION GAP 16 10 - 20 mmol/L [facility] Blood 01/15/2021 12:4 3 PM EDT 01/15/2021 12:49 PM EDT us Beth Sanderson MD LAB BLOOD BKR ORDERABLES Final Result [facility] [address] [place] [address] * ENDOSCOPY, COLON (11/26/2020 7:15 AM EDT) Narrative Transcriptions Lisseth Nunez MD - 11/26/2020 7:15 AM EDT Patient Name: Angeline Wilks Attending MD:: LISSETH NUNEZ MD Procedure Date: 11/26/2020 7:15 AM Date of : 1960 Age: 60 Admit Type: Outpatient Gender: Female Room: [facility] 04 Referring MD: JODEE STRAUSS MD Exam [...] monitored continuously. The Olympus adult variable colonoscope [id number] #1was introduced through the anus and advanced [...] 7:15 AM Procedure Code(s): --- Professional --- 22170, Colonoscopy, flexible; with removal of tumor(s), polyp(s), or other lesion(s) by snare technique --- Technical --- 69027, Colonoscopy, flexible; with removal of tumor(s), polyp(s), or other lesion(s) by snare technique CPT copyright 2018 [employer]. All rights reserved. The codes documented in this report are preliminary and upon pre assembly wirer reviewmay be revised to meet current compliance requirements. Procedure Date: 11/26/2020 7:15:[address] [place] [address] Jodee Strauss MD GI PROCEDURE ORDERABLES [...] the LEFT hip was calculated at 0.843 gm/tn0owyo a T-score of -0.8 falling within the WHO classification of normal.Z-score of 0.2. IMPRESSION: Lumbar spine and LEFT hip bone mineral density within normal limits. POS - [id number] Beth Sanderson MD [facility] BD BONE DENSITY DEXA Final Result from Last 3 Months or Most Recently Relevant to Health Maintenance Insurance MEDICARE PART A & B [facility] MEDICARE REPLACEMENT MEDICARE PART A & B [facility] MEDICARE REPLACEMENT MEDICARE PART A & B [facility] MEDICARE PART [facility] [place] [facility]PLACEMENT MEDICARE PART A & B [facility] MEDICARE PART A & B [facility] MEDICARE REPLACEMENT MEDICARE PART A & B [facility] MEDICARE REPLACEMENT MEDICARE PART A & B [facility] MEDICARE REPLACEMENT Care Teams Wound/Ostomy Clinical Nurse Specialist Relationship Specialty Start Date End Date Jodee Strauss MD [address] [place] [address] [email or web address] PCP - General Internal Medicine 11/01/23 Additional Source Comments The information contained in this document represents components of the legal health record. It is not the complete legal health record.[facility]
--- OUTSIDE RECORDS SUMMARY | 2025-06-21 07:29 | XMS_ITS | Encounter Summary ---
Author Organization [facility] Address [address] [place] [address] Phone Care Team Providers Care Stablehand Name Role Phone Nolan Gee MD Primary Care Provider [phone] Nolan Gee MD Primary Care Provider [phone] Encounter Details Date Type Department Care Team (Late st Contact Info) Description 11/26/2020 Procedure Pass [facility] Endoscopy Admitting Dept Virtual Department 30 [place] [address] Social History Tobacco Use Types Packs/Day Years [...] AM EST Appointment [facility] 30 [place] [address] Westley Katz MD [address] [place] [address] 09/05/2025 9:30 AM EST Office Visit [facility] [address] [place] [address] Westley Katz MD [address] [place] [address] 09/09/2025 11:00 AM EST Office Visit [facility] 22 [facility] 3rd Floor, [address] [place] [address] Bo Castro DO 22 [facility] [address] [place] [address] documented as of this encounter Visit Diagnoses Not on filedocumented in this encounter Care Teams Stablehand Relationship Specialty Start Date End Date Nolan Gee MD PCP - General Internal Medicine 12/11/17 10/31/23 Nolan Gee MD [address] [place] [address] PCP - General Internal Medicine 11/01/23 documented as of this encounter Additional Source Comments The information contained in this document represents components of the legal health record. It is not the complete legal health record.[facility]
--- OUTSIDE RECORDS SUMMARY | 2025-06-21 07:29 | XMS_ITS | Encounter Summary ---
Author Organization [facility] Address [address] [place] [address] [place] [address] Phone Care Team Providers Care Medical Library Assistant Name Role Phone Nolan Gee MD Primary Care Provider [phone] Nolan Gee MD Primary Care Provider [phone] Encounter Details Date Type Department Care Team (Late st Contact Info) Description 02/24/2022 Transcribe Orders [facility] [address] [place] [address] Paloma Vicente MD [address] [place] [address] Social History Tobacco Use Types Packs/Day Years [...] AM EST Appointment [facility] 30 [place] [address] Westley Katz MD 30 [place] [address] 09/05/2025 9:30 AM EST Office Visit [facility] [address] [place] [address] Westley Katz MD 30 [place] [address] 09/09/2025 11:00 AM EST Office Visit [facility] 22 [facility] 3rd Floor, [address] [place] [address] Bo Castro DO 22 [facility] [address] [place] [address] documented as of this encounter Visit Diagnoses Not on filedocumented in this encounter Care Teams Medical Library Assistant Relationship Specialty Start Date End Date Nolan Gee MD PCP - General Internal Medicine 12/11/17 10/31/23 Nolan Gee MD [address] [place] [address] PCP - General Internal Medicine 11/01/23 documented as of this encounter Additional Source Comments The information contained in this document represents components of the legal health record. It is not the complete legal health record.[facility]
--- OUTSIDE RECORDS SUMMARY | 2025-06-21 07:29 | XMS_ITS | Encounter Summary ---
Author Organization [facility] Address [address] [place] [address] Phone Care Team Providers Care Power Tool Repair Technician Name Role Phone Nolan Gee MD Primary Care Provider [phone] Nolan Gee MD Primary Care Provider [phone] Encounter Details Date Type Department Care Team (Latest Contact Info) Description 11/24/2020 Transcribe Orders Virtual Department 30 [place] [address] Daniel Nunez MD [address] [place] [address] [phone] [email or web address] Pre-procedure lab exam (Primary Dx) Social [...] AM EST Appointment [facility] 30 [place] [address] Westley Katz MD 30 [place] [address] 09/05/2025 9:30 AM EST Office Visit [facility] [address] [place] [address] Westley Katz MD [address] [place] [address] 09/09/2025 11:00 AM EST Office Visit [facility] 22 [facility] 3rd Floor, [address] [place] [address] Bo Castro DO 22 [facility] [address] [place] [address] documented as of this encounter Results * COVID-19 PCR Order (11/25/2020 9:15 AM EDT) COVID-19 Comment [id number] [facility] COVID Testing Status In-house testing being performed [facility] 11/25/2020 9:15 AM EDT 11/25/2020 10:22 AM EDT us Daniel Nunez MD LAB GENERAL ORDERABLES Final Result [facility] [address] [place] [address] documented in this encounter Visit Diagnoses Diagnosis Pre-procedure lab exam- Primary Pre-procedural laboratory examination documented in this encounter Care Teams Power Tool Repair Technician Relationship Specialty Start Date End Date Nolan Gee MD PCP - General Internal Medicine 12/11/17 10/31/23 Nolan Gee MD [address] [place] [address] [email or web address] PCP - General Internal Medicine 11/01/23 documented as of this encounter Additional Source Comments The information contained in this document represents components of the legal health record. It is not the complete legal health record.[facility]
--- OUTSIDE RECORDS SUMMARY | 2025-06-21 07:29 | XMS_ITS | Encounter Summary ---
Author Organization [facility] Address [address] [place] [address] [place] [address] Phone Care Team Providers Care Banbury Mill Operator Name Role Phone Nolan Gee MD Primary Care Provider [phone] Encounter Details Date Type Department Care Team (Late st Contact Info) Description 05/07/2025 Procedure Pass [place] Admitting Dept - Virtual Department [address] [place] [address] Social History Tobacco Use Types Packs/Day Years [...] AM EST Appointment [facility] [address] [place] [address] Westley Katz MD [address] [place] [address] 09/05/2025 9:30 AM EST Office Visit [facility] 10 [place] [address] Westley Katz MD [address] [place] [address] 09/09/2025 11:00 AM EST Office Visit [facility] [address] [place] [address] [address]rd [facility], [address] [place] [address] Bo Castro DO [address] [place] [address] documented as of this encounter Visit Diagnoses Not on filedocumented in this encounter Care Teams Banbury Mill Operator Relationship Specialty Start Date End Date Nolan Gee MD [address] [place] [address] PCP - General Internal Medicine 11/01/23 documented as of this encounter Additional Source Comments The information contained in this document represents components of the legal health record. It is not the complete legal health record.[facility]
--- OUTSIDE RECORDS SUMMARY | 2025-06-21 07:29 | XMS_ITS | Encounter Summary ---
Author Organization [facility] Address [address] [place] [address] [place] [address] Phone Care Team Providers Care Tax Collection Coordinator Name Role Phone Nolan Gee MD Primary Care Provider [phone] Reason for Referral * MRI/CAT Scan - New Request Specialty Diagnoses / Procedures Referred By Contac t Referred To Contact Radiology Diagnoses Atherosclerosis of circle coronary artery of circle heart without angina pectoris Procedures NC Myocardial Perfusion Exercise Multiple NC Myocardial Perfusion Pharmacologic Stress Multiple Nolan Gee MD [address] [place] [address] Phone: tel: fax: [email or web address] Referral ID Status Reason Start Date Expiration Date V isits Requested Visits Authorized [id number] New Request 04/11/2025 1 1 Encounter Details Date Type Department Care Team (Late st Contact Info) Description 05/15/2025 Ancillary Orders [facility] [address]rd Floor, [address] [place] [address] Nolan Gee MD [address] [place], [place] [phone] [email or web address] Atherosclerosis of circle coronary artery of circle heart without angina pectoris (Primary Dx) Social [...] AM EST Appointment [facility] 30 [place] [address] Westley Katz MD 30 [place] [address] 09/05/2025 9:30 AM EST Office Visit [facility] 10 [facility] [place] [address] Westley Katz MD 30 [place] [address] 09/09/2025 11:00 AM EST Office Visit [facility] 22 [facility] 3rd Floor, [address] [place] [address] Bo Castro, 22 [facility] [address] [place] [address] documented as of this encounter Results * [...] in SPECT format, reconstructed tomographically and compared [id number] in short axis, horizontal long axis and [...] this encounter Visit Diagnoses Diagnosis Atherosclerosis of circle coronary artery of circle heart without angina pectoris- Primary Atherosclerosis of circle coronary artery of circle heart without angina pectoris- Primary documented in this encounter Care Teams Tax Collection Coordinator Relationship Specialty Start Date End Date Nolan Gee MD [address] [place] [phone] [email or web address] PCP - General Internal Medicine 11/01/23 documented as of this encounter Additional Source Comments The information contained in this document represents components of the legal health record. It is not the complete legal health record.[facility]
--- OUTSIDE RECORDS SUMMARY | 2025-06-21 07:29 | XMS_ITS | Encounter Summary ---
Author Organization [facility] Address [address] [place] [address] Phone Care Team Providers Care Thread Grinder Name Role Phone Nolan Gee MD Primary Care Provider [phone] Nolan Gee MD Primary Care Provider [phone] Reason for Referral * MRI/CAT Scan - Closed Specialty Diagnoses / Procedures Referred By Contac t Referred To Contact Radiology Diagnoses Arthralgia of both hands Procedures MRI Hand (Left) Paloma Vicente MD Phone: tel: fax: Referral ID Status Reason Start Date Expiration Date Visits Re quested Visits Authorized [id number] Closed 02/25/2022 02/25/2023 1 1 Encounter Details Date Type Department Care Team (Latest Contact Info) Description 02/25/2022 Transcribe Orders Virtual Department 30 [place] [address] Paloma Vicente MD [address] [place] [address] Arthralgia of both hands (Primary Dx) Social [...] AM EST Appointment [facility] [address] [place] [address] Westley Katz MD [address] [place] [address] 09/05/2025 9:30 AM EST Office Visit [facility] 10 [facility] [place] [address] Westley Katz MD [address] [place] [address] 09/09/2025 11:00 AM EST Office Visit [facility] [address] [place] [address] 3rd Floor, [address] [place] [address] Bo Castro DO [address] [place] [address] [email or web address] Scheduled Orders Name Type Priority Associated Diagnoses Orde r Schedule MRI Hand (Left) Imaging Routine Arthralgia of both hands Expected: 02/25/2022, Expires: 05/28/2022 documented as of this encounter Visit Diagnoses Diagnosis Arthralgia of both hands- Primary documented in this encounter Care Teams Thread Grinder Relationship Specialty Start Date End Date Nolan Gee MD PCP - General Internal Medicine 12/11/17 10/31/23 Nolan Gee MD [address] [place] [address] [email or web address] PCP - General Internal Medicine 11/01/23 documented as of this encounter Additional Source Comments The information contained in this document represents components of the legal health record. It is not the complete legal health record.[facility]
== END 2025-06-18 07:28 | disposition home or self-care (01) ==
LOC: HO.HOSX 07:27
PROVIDERS: Visit Provider Orthopaedic Surgery
DX: M17.11 Unilateral primary osteoarthritis, right knee (principal); M17.12 Unilateral primary osteoarthritis, left knee; M25.552 Pain in left hip
CPT/HCPCS: 73502; 99212

== ENCOUNTER 2025-06-18 08:48 | Outpatient (AMB) | payer MEDICARE, MEDICAID, SELFPAY ==
[2025-06-18 09:04] VITALS: BMI 36.1
--- NOTE | 2025-06-18 09:04 | A.OFFVIS_ITS ---
Vital Signs 06/18/25 09:04 Height 5 ft Weight 185 lb BMI 36.1 Intake Visit Reasons: Bilateral total hip replacement surgery, Bilateral knee pain Intake Note: Ms. Wilks is a 64-year-old female who presents for follow-up after undergoing bilateral total hip replacement surgeries. She reports mild intermittent discomfort along the lateral aspects of both of her hips. She denies any fevers or chills. Today she is most concerned with bilateral knee pains, left greater than right. The patient states that she did undergo left knee ACL surgery approximately 30 years ago while injuring her knee when she got out of a truck. Her bilateral knee pains have gotten worse over the last few years in spite of continued non operative treatments. She has had multiple cortisone injections. The most recent injection gave her minimal relief. She has failed the last 3 months of conservative treatment which has included Tylenol, anti-inflammatory medicines, a home exercise program and physical therapy exercises. At this point her bilateral knee pains are interfering with her activities of daily living and her ability to sleep well through the night. She wishes to hold off on knee surgery for as long as possible. Allergies bee pollen (bee stings) Allergy (Severe, Verified 06/18/25 09:04) Anaphylaxis-bee and wasp stings ciprofloxacin (From Cipro) Allergy (Severe, Verified 06/18/25 09:04) Rash, hives crab Allergy (Severe, Verified 06/18/25 09:04) Hives, itching, swelling hydroxychloroquine Allergy (Severe, Verified 06/18/25 09:04) Hives, itching lobster Allergy (Severe, Verified 06/18/25 09:04) Hives, itching, swelling methotrexate Allergy (Severe, Verified 06/18/25 09:04) fatigue, hives, GI upset Medication List - Last Reconciled 06/18/25 by Alcon Moncada MD acetaminophen 650 mg (2 x 325 mg) PO Q6H PRN 30 days amlodipine 10 mg PO DAILY ascorbic jonr-yjrhmzpz-hmu 1,000 mg (Emergen-C) ea PO chlorthalidone 12.5 mg PO DAILY cholecalciferol (vitamin D3) (Vitamin D3) 50 mcg PO DAILY diclofenac sodium 1% 1 ea topical QID PRN docusate sodium 100 mg PO BID 30 days epinephrine 0.3 mL IM ONCE PRN furosemide (Lasix) 20 mg PO QWEEK lisinopril 40 mg PO DAILY walker Folding front wheeled walker [facility] Medical History Osteoarthritis of hands, bilateral Seronegative rheumatoid arthritis Hidradenitis suppurativa Hx of Diverticular disease Essential hypertension Osteoarthritis GERD (gastroesophageal reflux disease) Fibromyalgia Prediabetes Hyperlipidemia Surgical History Status post left hip replacement Hx of colonoscopy History of surgery on lower extremity Status post total hip replacement, right Family History Mother Myocardial infarction Hypertension Stroke Brother Emphysema lung Father Heart disease S/P CABG x 3 Arthritis Brother Heart disease Social History Household Members: Significant Other Housing: Apartment Are you a primary client care manager to a significant other at home: No Do you presently have visiting nurse or other home services: No Alcohol intake: current Alcohol intake frequency: does not drink Patient Tobacco Use Status: Former Tobacco user Tobacco use type: Cigarette Years Smoked: 50 Second Hand Smoke Exposure: No Substance Use Type: Marijuana service: No Current occupational status: retired 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 Physical Exam Vital Signs: BMI result Body Mass Index 36.1 Const Other: Well-nourished well-developed very friendly female awake alert and oriented x3 in no acute distress Extrem Other: Bilateral hip examination shows that the surgical incisions are well healed, no erythema, minimal discomfort with range of motion, no tenderness over her bursa Bilateral knee examination shows minimal effusions, palpable crepitus with range of motion, pain with range of motion, no instability Results Reviewed Results Reviewed: X-rays of the patient's bilateral hips taken today show total hip arthroplasties in good position with no signs of loosening, no acute bony abnormalities X-rays of the patient's bilateral knees taken previously at another facility show joint space narrowing, subchondral sclerosis, no acute bony abnormalities Assessment & Plan Assessment & Plan (1) Pain in both knees: Code(s): M25.561 - Pain in right knee; M25.562 - Pain in left knee (2) Osteoarthritis of left knee: Code(s): M17.12 - Unilateral primary osteoarthritis, left knee Category: Medical (3) Osteoarthritis of right knee: Code(s): M17.11 - Unilateral primary osteoarthritis, right knee Category: Medical Plan Ms. Wilks presents with bilateral knee pains due to osteoarthritis. I had a lengthy discussion with the patient regarding the treatment options. She wishes to hold off on surgery for as long as possible. I agree with this plan. I will see if the patient's insurance company will cover a viscosupplementation injection, such as Durolane, for both of her knees. I will see her back once the injections are approved. Feel free to call me at any time should questions regarding her orthopedic management arise. I spent 20 minutes in reviewing the patient's records and imaging studies, seeing the patient and documenting in the medical record. Orders: Orders XR hip LT min 2V Today M25.552 - Pain in left hip Coding Level of Care Code Est Pt Level 3 (31853) Complex visit Add On G2211 Diagnoses Pain in both knees M25.561; M25.562 Osteoarthritis of left knee M17.12 Osteoarthritis of right knee M17.11
--- OUTSIDE RECORDS SUMMARY | 2025-06-18 09:14 | XMS_ITS | Encounter Summary ---
Author Organization [facility] Address [address] [place] [address] [place] [phone] Phone Care Team Providers Care Wharf Hand Name Role Phone Nolan Gee MD Primary Care Provider [phone] Nolan Gee MD Primary Care Provider [phone] Encounter Details Date Type Department Care Team (Late st Contact Info) Description 02/24/2022 Transcribe Orders [facility] [address] [place] [address] Paloma Vicente MD [address] [place] [id number] Social History Tobacco Use Types Packs/Day Years [...] Care Team (Late st Contact Info) Description 07/22/2025 8:15 AM EST Appointment [facility] [address] [place] [address] Westley Katz MD [address] [place] [address] 09/05/2025 9:30 AM EST Office Visit [facility] [address] [place] [address] [place] [address] Westley Katz MD [address] [place] [address] 09/09/2025 11:00 AM EST Office Visit [facility] [address] [facility] 3rd Floor, [address] [place] [phone] Bo Castro DO 22 [facility] [address] [place] [phone] documented as of this encounter Visit Diagnoses Not on filedocumented in this encounter Care Teams Wharf Hand Relationship Specialty Start Date End Date Nolan Gee MD PCP - General Internal Medicine 12/11/17 10/31/23 Nolan Gee MD [address] [place] [id number] PCP - General Internal Medicine 11/01/23 documented as of this encounter Additional Source Comments The information contained in this document represents components of the legal health record. It is not the complete legal health record.[facility]
--- OUTSIDE RECORDS SUMMARY | 2025-06-18 09:14 | XMS_ITS | Encounter Summary ---
Author Organization [facility] Address [address] [place] [phone] Phone Care Team Providers Care Mold Stacker Name Role Phone Nolan Gee MD Primary Care Provider [phone] Nolan Gee MD Primary Care Provider [phone] Encounter Details Date Type Department Care Team (Late Contact Info) Description 12/10/2021 Procedure [facility] [address] [address] Social History Tobacco Use Types Packs/Day Years [...] AM EST Appointment [facility] [address] [place] [address] Westley Katz MD [address] [place] [address] 09/05/2025 9:30 AM EST Office Visit [facility] [address] [place] [address] Westley Katz MD [address] [place] [address] 09/09/2025 11:00 AM EST Office Visit [facility] [address] [facility] 3rd Floor, [address] [place] [address] Bo Castro DO [address] [facility] [address] [place] [phone] documented as of this encounter Visit Diagnoses Not on filedocumented in this encounter Care Teams Mold Stacker Relationship Specialty Start Date End Date Nolan Gee MD PCP - General Internal Medicine 12/11/17 10/31/23 Nolan Gee MD [address] [place] [phone] PCP - General Internal Medicine 11/01/23 documented as of this encounter Additional Source Comments The information contained in this document represents components of the legal health record. It is not the complete legal health record.[facility]
--- OUTSIDE RECORDS SUMMARY | 2025-06-18 09:14 | XMS_ITS | Clinical Summary ---
Author Organization [facility] Address [address] [place] [address] Phone Care Team Providers Care Metal Bed Assembler Name Role Phone Jodee Strauss MD Primary Care Provider [phone] Allergies Active Allergy Reactions Criticality Noted Date Comments Ciprofloxacin Rash,Anaphylaxis High 03/08/2018 Other Unknown 09/14/2011 anchovy Hydroxychloroquine Itching,Swelling,Rash Low 2018 Shellfish Unknown 09/14/2011 Venom-Honey Bee Anaphylaxis High 11/01/2023 Wasp Venom Anaphylaxis High 05/22/2025 Medications lisinopril (PRINIVIL,ZESTR IL) 40 MG tablet Take 40 mg by mouth daily. Active chlorthalidone (HYGROTON) 25 MG tablet Take 25 mg by mouth daily. Active cholecalciferol (VITAMIN D3) 1,000 unit tablet Take 1,500 Units by mouth daily. Active methylcellulose (CITRUCEL) oral powder Take 2 g by mouth daily. Active EPINEPHrine 0.3 mg/0.3 mL auto-injector 1 Active acetaminophen (TYLENOL) 325 mg tablet Take 650 mg by mouth every 6 (six) hours as needed for pain (specific location in comments). 3 Active atorvastatin 20 mg/5 mL (4 mg/mL) Susp 20 mg daily. 5 Active atorvastatin (LIPITOR) 20 MG tablet 5 Active amLODIPine (NORVASC) 10 MG tablet 5 Active amLODIPine (NORVASC) 5 MG tablet Take 5 mg by mouth daily. 05/23/20 25 Discontinu ed(No longer taking) gabapentin (NEURONTIN) [...] Continue mindfullness approach as educated by Dr. aDve Sood in his book Full catastrophe living [...] Encounters Date Type Department Care Team Description 05/28/2025 3:00 PM EST Procedure visit [facility] [address] [place] [address] Akshat Meza CNP Skin lesion of left arm (Primary Dx) 05/23/2025 2:30 PM EDT Office Visit [facility] [address] [place] [address] Akshat Meza CNP EIC (epidermal inclusion cyst) (Primary Dx) 05/22/2025 1:00 PM EDT Office Visit [facility] [address] [place] [address] Westley Katz MD Abnormal CT of the chest (Primary Dx); Screening for lung cancer; Tobacco abuse, in remission 05/15/2025 7:18 AM EDT - 05/15/2025 11:59 PM EDT Hospital Encounter Non-Invasive Cardiology [address] [place] [address] Jodee Strauss MD Discharge Disposition: Home or Self Care 05/15/2025 Ancillary Orders [facility] [address], [address] [place] [address] Jodee Strauss MD Atherosclerosis of [place] coronary artery of [place] heart without angina pectoris (Primary Dx) 05/07/2025 Procedure Pass OR Admitting Dept - Virtual Department [address] [place] [address] 04/11/2025 Transcribe Orders [facility] [address], [address] [place] [address] Mitch Christensen Atherosclerosis of coronary artery with unstable angina pectoris, unspecified vessel or lesion type, unspecified whether [place] or transplanted heart (Primary Dx) 04/11/2025 Transcribe Orders [facility] [address], [address] [place] [address] Jodee Strauss MD Atherosclerosis of [place] coronary artery of [place] heart without angina pectoris (Primary Dx) 04/09/2025 Telephone [facility] [address] [place] [address] Zack Huizar MD Abnormal ECG 03/31/2025 1:00 PM EDT Telemedicine - audio only [facility] [address] [place] [address] Chacha Holbrook PA-C Breast hypertrophy in female (Primary Dx) from Last 3 Months Immunizations Immunization Administration Dates Next Due COVID-19 (Pre-05/15) Pfizer Vaccine, mRNA, PF 11/14/2020,10/24/2020 INFLUENZA, SPLIT VIRUS, TRIVALENT PF 04/04/2013 INFLUENZA, SPLIT VIRUS, TRIV ALENT W/ PRESERVATIVE IM 03/14/2011,07/09/2010 Influenza Quadrivalent MDCK w/Preservative IM 04/24/2018 Influenza Quadrivalent Prese rvative Free IM 05/16/2020,06/11/2019,03/16/2017,05/24,05/05/2015 Influenza, Unspecified Formulation 05/27/2014, Pneumococcal polysaccharide PPSV23 04/04/2011 Tdap 07/03/2012 Zoster recombinant 08/07/2020,08/07/2020, 020 Social History Tobacco Use Types Packs/Day Years [...] Sign Reading Time Taken Comments Blood Pressure 122/79 05/28/2025 3:00 PM EST Pulse 92 05/28/2025 3:00 PM EST Temperature 36.6 C (97.9 F) 05/28/2025 3:00 PM EST Respiratory Rate 16 06/26/2023 11:24 AM EST Oxygen Saturation 96% 05/28/2025 3:00 PM EST Inhaled Oxygen Concentration - - Weight 87.1 kg (192 lb) 05/22/2025 12:56 PM EDT Height 154.2 cm (5' 0.71 ) 05/22/2025 12:56 PM E DT Body Mass Index 36.63 05/22/2025 12:56 PM EDT Plan of Treatment Upcoming Encounters Date Type Department Care Team (Late st Contact Info) Description 07/22/2025 8:15 AM EST Appointment [facility] [address] [place] [address] Westley Katz MD [address] [place] [address] 09/05/2025 9:30 AM EST Office Visit [facility] [address] [place] [address] Westley Katz MD [address] [place] [address] 09/09/2025 11:00 AM EST Office Visit [facility] 22 [facility] 3rd Floor, [address] [place] [address] Bo Castro DO 22 [facility] [address] [place] [address] Health Maintenance Due Date Last Done Comments DEPRESSION SCREENING 1970 SMOKING Hx and SMOKELESS TOBACCO SCREENING 1971 HEPATITIS C SCREENING 1976 LIPID PANEL 1976 MAMMOGRAM 1998 COLOGUARD 2003 FIT TEST 2003 FOBT 2003 SIGMOIDOSCOPY 2003 VIRTUAL COLONOSCOPY 2003 CREATININE LEVEL 01/15/2022 01/15/2021, , 08/23/2018, Additional history exists POTASSIUM LEVEL 01/15/2022 01/15/2021, 12/22, 08/23/2018, Additional history exists SCREENING FOR DIABETES 01/16/2024 01/15/2021 INFLUENZA VACCINE (#1) 2025 , 04/19/2023, 04/28/2022, Additional history exists COVID-19 VACCINE ( season) 2025 04/10/2025, 07/26/2022, 08/19/2021, Additional history exists COLONOSCOPY 11/27/2027 11/26/2020 COLORECTAL CANCER SCREENING 11/27/2027 Adult Td,Tdap Booster 07/19/2032 07/19/2022, 012 OSTEOPOROSIS SCREENING INITIAL (ONE-TIME) Completed 05/23/2019 ZOSTER VACCINES Completed 08/07/2020, 07/24, 04/15/2020 RSV VACCINE Completed 05/02/2023 PNEUMOCOCCAL VACCINES (50+ years) Completed 04/10/2025, 04/04/2011 HEPATITIS A VACCINES Aged Out No long er eligible based on patient's age to complete this topic HIB VACCINES Aged Out No longer eligi ble based on patient's age to complete this topic IPV VACCINES Aged Out No longer eligi ble based on patient's age to complete this topic MENINGOCOCCAL VACCINES (ACWY) Aged Out No longer eligible based on patient's age to complete this topic MENINGOCOCCAL VACCINES (B) Aged Out N o longer eligible based on patient's age to complete this topic Medical Devices Implanted Type Area Certified Vehicle Fire Investigator Device Identifier Shelf Expiration Date Model / Serial / Lot Prosthetic Joint Prosthetic Joint Right: Hip Procedures Procedure Name Priority Date/Time Associated Diagnosis Comments TISSUE EXAM Routine 05/28/2025 4:35 PM EST Skin lesion of left arm CYST EXCISION Routine 05/28/2025 3:14 PM EST Skin lesion of left arm NC MYOCARDIAL PERFUSION EXERCISE, MULTI Routine 05/15/2025 8:54 AM EDT Atherosclerosis of [place] coronary artery of [place] heart without angina pectoris OUTSIDE IMAGING 04/22/2025 COMPREHENSIVE METABOLIC PANEL (CMP) Routine 01/15/2021 12:43 PM EDT Inflammatory arthritis Gastroesophageal reflux disease without esophagitis ENDOSCOPY, COLON 11/26/2020 7:15 AM EDT BD DXA AXIAL (SPINE) WITH HIP Routine 05/23/2019 10:49 AM EDT Inflammatory arthritis Gastroesophageal reflux disease without esophagitis Family history of rheumatoid arthritis from Last 3 Months or Most Recently Relevant to Health Maintenance Results * Tissue Exam (05/28/2025 4:35 PM EST) Final Pathologic Diagnosis A. ARM, LEFT; UPPER: Epidermal inclusion cyst. 05/30/2025 1:33 PM [facility] at 1333 EST Clinical History Skin lesion of left arm [L98.9] - Primary 05/30/2025 1:33 PM [facility] Gross Description A. ARM, LEFT; UPPER: Received in formalin is a 2.8 x 1.3 cm unoriented ellipse of skin excised to a depth of 0.7 cm. The skin surface is smooth, singh and exhibits a central, focally crusted singh-pink nodule measuring 1.0 x 1.0 x 0.8 cm which is sectioned to reveal a smooth lined, unilocular pattern with contents consisting of a waxy, friable, amorphous singh material. A sales representative health insurance section is submitted in a single cassette labeled A1. Grossed by: BENITA Mckoy PA([facility]) 05/30/2025 1:33 PM [facility] Grossed By Alexander Osman 05/30/2025 1:33 PM [facility] Result Priority Level Routine 05/30/2025 1:33 PM [facility] Disclaimer By their signature above, the pathologist listed as making the Final Diagnosis certifies that they have personally reviewed the case and confirmed the diagnosis. All slides and stains were of sufficient quality to establish the diagnosis, unless otherwise stated. Due to loss of elastic tension and/or tissue shrinkage in formalin, the clinical sizes of tissue specimens may be larger than those provided in this report. 05/30/2025 1:33 PM EST [facility] Tissue - General (Arm, Left) Non-Blood Collection / Unknown 05/28/2025 4:35 PM EST 05/28/2025 4:35 PM EST Akshat Meza CNP LAB PATHOLOGY ORDERABLES Shelia coto Result [address] [address] * CYST EXCISION (05/28/2025 3:14 PM EST) Narrative Akshat Meza CNP - 05/28/2025 3:14 PM EST Akshat Meza CNP 05/28/2025 3:35 PM Cyst Excision Date/Time: 05/28/2025 3:14 PM Performed by: Akshat Meza CNP Authorized by: Akshat Meza CNP Preparation: Patient was prepped and draped in the usual sterile fashion. Local anesthesia used: yes Anesthesia: local infiltration Anesthesia: Local anesthesia used: yes Local Anesthetic: lidocaine 1% with epinephrine Sedation: Patient sedated: no Patient tolerance: patient tolerated the procedure well with no immediate complications Comments: 2.5 cm ellipse incision and removal of lesion in entirety, placed in formalin and sent to pathology. Wound hemostatic, layered closure with Vicryl, steri strip, waterproof dsd applied. Akshat Meza CNP DERM PROCEDURE ORDERABLES Fin al Result * NC Myocardial Perfusion Exercise Multiple (05/15/2025 8:54 AM EDT) Max Predicted Heart Rate 154 bpm Stress/rest perfusion ratio 1.04 Nuc Stress EF 73 % SNMDIAVOL 56.0 mL SNMSYSVOL 15.0 mL Nuc Rest EF 72 % RNMDIAVOL 54.0 mL RNMSYSVOL 15.0 mL Anatomical Region Laterality Modality Heart, Vascular Ultrasound Narrative 05/16/2025 8:31 AM EDT Probably normal There is a small in size mild intensity fixed defect at the distal inferior wall which could be consistent with a small distal inferior scar versus artifact from breast attenuation. Unfortunately prone imaging could not be performed. There is no evidence of ischemia. Normal LV size and function. ECG STRESS REPORT: BMI: 35.56 Angeline Wilks exercised for 3:02 min on a AMANUEL protocol achieving 4.6 METS. Test terminated due to fatigue. Baseline resting HR was 64 bpm. Max heart rate achieved was 144 bpm (93% MPHR). 1. EKG - Baseline EKG showed sinus rhythm with RBBB and nonspecific ST-T wave abnormalities. During exercise, EKGs were uninterpretable for ischemia due to significant motion artifact. When EKGs cleared in immediate recovery, there were no EKG changes that met strict criteria for ischemia. 2. SYMPTOMS - No chest pain. 3. EXERCISE PHYSIOLOGY - Fair functional capacity for age. Baseline blood pressure 140/98. Blood pressure 198/112 at peak exercise. Blood pressure 138/94 upon discharge from the stress lab. 4. ARRHYTHMIAS - Rare isolated PACs and PVCs and very rare ventricular couplet. Conclusion - Nondiagnostic EKG portion of stress testing due to significant motion artifact with exercise. Hypertensive throughout testing. Nuclear images pending and will be reported separately. See attached stress report for full details. Evon Arevalo PA-C NUCLEAR REPORT: TYPE OF STUDY: Myocardial Perfusion Imaging after exercise utilizing a standard Amanuel protocol with gated SPECT. PROTOCOL USED: One day rest- stress protocol in the supine position. Images were obtained in gated tomographic technique. Images were processed in SPECT format, reconstructed tomographically and compared [id number] in short axis, horizontal long axis and vertical long axis. DOSE: Technetium 99m Sestamibi 7.0 mCi injected intravenously in the right hand at rest on 05/15/2025 with post injection scan time of 60 minutes. Technetium 99m Sestamibi 21.8 mCi injected intravenously in the right hand during stress on 05/15/2025 with post injection scan time of 20 minutes. Overall image quality is good. Diaphragmatic attenuation is present. No motion artifact is present. Stress Function Defect Left ventricular global function is normal during stress. Stress ejection fraction is 73%. The stress end diastolic cavity size is normal. Stress end diastolic size: 56.0 mL. The stress end systolic cavity size is normal. Stress end systolic size: 15.0 mL. Rest Function Defect Left ventricular global function is normal at rest. Resting ejection fraction was 72%. The rest end diastolic cavity size is normal. Rest end diastolic size: 54.0 ml. The rest end systolic cavity size is normal. Rest end systolic size: 15.0 mL. Nuclear Prior Study There is no prior study available for comparison. Nuclear Ancillary Finding There is no evidence of transient ischemic dilation (TID). The TID ratio is 1.04, which is normal. Perfusion Scoring Resting Summed Score: 4 Percent Normal: 5.88% Moderate count reduction in the following segments: apical inferior. Mild count reduction in the following segments: apical septal and apex. All other segments are normal. SUPINE IMAGING REST Perfusion Scoring Stress Summed Score: 4 Percent Normal: 5.88% Moderate count reduction in the following segments: mid inferolateral and apical inferior. All other segments are normal. SUPINE IMAGING STRESS Perfusion Scores: SRS Score: 4 Percentage Abnormal: 5.88% Perfusion Scores: SSS Score: 4 Percentage Abnormal: 5.88% Perfusion Scores: SDS Score: 0 Percentage Abnormal: 0.00% Procedure Note Matteo Crook MD - 05/16/2025 Probably normal There is a small in size mild intensity fixed defect at the distalinferior wall which could be consistent with a small distal inferior scarversus artifact from breast attenuation. Unfortunately prone imaging could not be performed. There is no evidence of ischemia. Normal LV size and function. us Jodee Strauss MD CV NM CARDIAC Final Result * Outside Imaging Report Only (04/22/2025) us Scanning Interface Provider IMG XR CHEST Shelia l Result * Comprehensive metabolic panel (01/15/2021 12:43 PM EDT) SODIUM 137 133 - 146 mmol/L [facility] POTASSIUM 4.3 3.3 - 5.1 mmol/L [facility] Comment:Specimen slightly he molyzed, result may be falsely elevated. CHLORIDE 99 96 - 108 mmol/L [facility] CO2 26 21 - 35 mmol/L [facility] BUN 10 6 - 19 mg/dL [facility] CREATININE 0.50 0.5 - 1.5 mg/dL [facility] GLUCOSE 88 70 - 99 mg/dL [facility] ALBUMIN 4.4 3.9 - 4.8 g/dL [facility] TOTAL PROTEIN 7.8 6.5 - 8.0 g/dL [facility] CALCIUM 10.0 8.4 - 10.3 mg/dL [facility] ALKALINE PHOSPHATASE 117 39 - 117 U/L [facility] TOTAL BILIRUBIN 0.4 0.0 - 1.2 mg/dL [facility] AST 17 0 - 37 U/L [facility] ALT 12 0 - 40 U/L [facility] GLOBULIN 3.4 1 - 4.8 g/dL [facility] EGFR 104 >59 mL/min/1.7 3m2 [facility] Comment:Estimated glomerular filtration rate calculated using the CKD-EPI equation. ANION GAP 16 10 - 20 mmol/L [facility] Blood 01/15/2021 12:4 3 PM EDT 01/15/2021 12:49 PM EDT us Beth Sanderson MD LAB BLOOD BKR ORDERABLES Final Result [facility] [address] [place] [address] * ENDOSCOPY, COLON (11/26/2020 7:15 AM EDT) Narrative Transcriptions Lisseth Nunez MD - 11/26/2020 7:15 AM EDT Patient Name: Angeline Wilks Attending MD:: LISSETH NUNEZ MD Procedure Date: 11/26/2020 7:15 AM Date of : 1960 Age: 60 Admit Type: Outpatient Gender: Female Room: [facility] 04 Referring MD: JODEE STRAUSS MD Exam Type: [...] monitored continuously. The Olympus adult variable colonoscope [id number] #1was introduced through the anus and advanced [...] 7:15 AM Procedure Code(s): --- Professional --- 40534, Colonoscopy, flexible; with removal of tumor(s), polyp(s), or other lesion(s) by snare technique --- Technical --- 34673, Colonoscopy, flexible; with removal of tumor(s), polyp(s), or other lesion(s) by snare technique CPT copyright 2018 [employer]. All rights reserved. The codes documented in this report are preliminary and upon section supervisor reviewmay be revised to meet current compliance requirements. Procedure Date: 11/26/2020 7:15:[address] [place] [address] Jodee Strauss MD GI PROCEDURE ORDERABLES Final [...] the LEFT hip was calculated at 0.843 gm/wx0hjfy a T-score of -0.8 falling within the WHO classification of normal.Z-score of 0.2. IMPRESSION: Lumbar spine and LEFT hip bone mineral density within normal limits. POS - [id number] Beth Sanderson MD [facility] BD BONE DENSITY DEXA Final Result from Last 3 Months or Most Recently Relevant to Health Maintenance Insurance MEDICARE PART A & B [facility] MEDICARE REPLAC[facility] MEDICARE PART A & [place] [facility] REPL[facility] MEDICARE PART A & B [facility] MEDICARE PART A & [place] [facility] RE[facility] MEDICARE PART A & B [facility] MEDICARE PART A & B [facility] MED[facility] REPLAC[facility] MEDICARE PART A & B [facility] REPL[facility] MEDICARE PART A & B [facility] MEDIC[facility] REPLACEMENT Care Teams Metal Bed Assembler Relationship Specialty Start Date End Date Jodee Strauss MD [address] [place] [address] [email or web address] PCP - General Internal Medicine 11/01/23 Additional Source Comments The information contained in this document represents components of the legal health record. It is not the complete legal health record.[facility]
--- OUTSIDE RECORDS SUMMARY | 2025-06-18 09:14 | XMS_ITS | Encounter Summary ---
Author Organization [facility] Address [address] [place] [address] Phone Care Team Providers Care Electronic Lab Technician Name Role Phone Nolan Gee MD Primary Care Provider [phone] Nolan Gee MD Primary Care Provider [phone] Encounter Details Date Type Department Care Team (Latest Contact Info) Description 11/24/2020 Transcribe Orders Virtual Department [address] [place] [address] Daniel Nunez MD [address] [place] [address] [phone] [email or web address] Pre-procedure lab exam [...] AM EST Appointment [facility] [address] [place] [address] Westley Katz MD [address] [place] [address] 09/05/2025 9:30 AM EST Office Visit [facility] [address] [place] [address] [place] [address] Westley Katz MD [address] [place] [address] 09/09/2025 11:00 AM EST Office Visit [facility] 22 [facility] 3rd Floor, [address] [place] [address] Bo Castro DO 22 [facility] [address] [place] [address] documented as of this encounter Results * COVID-19 PCR Order (11/25/2020 9:15 AM EDT) COVID-19 Comment [id number] [facility] COVID Testing Status In-house testing being performed [facility] 11/25/2020 9:15 AM EDT 11/25/2020 10:22 AM EDT us Daniel Nunez MD LAB GENERAL ORDERABLES Final Result [facility] [address] [place] [address] documented in this encounter Visit Diagnoses Diagnosis Pre-procedure lab exam- Primary Pre-procedural laboratory examination documented in this encounter Care Teams Electronic Lab Technician Relationship Specialty Start Date End Date Nolan Gee MD PCP - General Internal Medicine 12/11/17 10/31/23 Nolan Gee MD [address] [place] [address] [email or web address] PCP - General Internal Medicine 11/01/23 documented as of this encounter Additional Source Comments The information contained in this document represents components of the legal health record. It is not the complete legal health record.[facility]
--- OUTSIDE RECORDS SUMMARY | 2025-06-18 09:14 | XMS_ITS | Encounter Summary ---
Author Organization [facility] Address [address] [place] [address] [place] [address] Phone Care Team Providers Care Barrel Rifler Name Role Phone Nolan Gee MD Primary Care Provider [phone] Encounter Details Date Type Department Care Team (Late st Contact Info) Description 05/07/2025 Procedure Pass OR Admitting Dept - Virtual Department [address] [place] [address] Social History Tobacco Use Types Packs/Day Years [...] AM EST Appointment [facility] [address] [place] [address] Westley Katz MD [address] [place] [address] 09/05/2025 9:30 AM EST Office Visit [facility] [address] [place] [address] Westley Katz MD [address] [place] [address] 09/09/2025 11:00 AM EST Office Visit [facility] [address] [place] [address] [address]rd [facility], [address] [place] [address] Bo Castro DO [address] [place] [address] documented as of this encounter Visit Diagnoses Not on filedocumented in this encounter Care Teams Barrel Rifler Relationship Specialty Start Date End Date Nolan Gee MD [address] [place] [address] PCP - General Internal Medicine 11/01/23 documented as of this encounter Additional Source Comments The information contained in this document represents components of the legal health record. It is not the complete legal health record.[facility]
--- OUTSIDE RECORDS SUMMARY | 2025-06-18 09:14 | XMS_ITS | Encounter Summary ---
Author Organization [facility] Address [address] [place] [address] [address] [place] [address] Phone Care Team Providers Care Home Health Clinical Supervisor Name Role Phone Nolan Gee MD Primary Care Provider [phone] Nolan Gee MD Primary Care Provider [phone] Encounter Details Date Type Department Care Team (Latest Contact Info) Description 01/09/2019 Ancillary Orders [facility] Rheumatology 22 [place] [address] Beth Sanderson MD 22 [facility], [address] [place] [address] [email or web address] Primary osteoarthritis involving multiple joints; Family history [...] AM EST Appointment [facility] 30 [place] [address] Westley Katz MD 30 [place] [address] 09/05/2025 9:30 AM EST Office Visit [facility] 10 [facility] [place] [address] Westley Katz MD 30 [place] [address] 09/09/2025 11:00 AM EST Office Visit [facility] 22 [facility] 3rd Floor, [address] [place] [address] Edith Castro DO 22 [facility] [address] [place] [address] documented as of this encounter Results * [...] arthritis documented in this encounter Care Teams Home Health Clinical Supervisor Relationship Specialty Start Date End Date Nolan Gee MD PCP - General Internal Medicine 12/11/17 10/31/23 Nolan Gee MD [address] [place] [address] PCP - General Internal Medicine 11/01/23 documented as of this encounter Additional Source Comments The information contained in this document represents components of the legal health record. It is not the complete legal health record.[facility]
--- OUTSIDE RECORDS SUMMARY | 2025-06-18 09:14 | XMS_ITS | Encounter Summary ---
Author Organization [facility] Address [address] [place] [address] [place] [address] Phone Care Team Providers Care Import Manager Name Role Phone Nolan Gee MD Primary Care Provider [phone] Encounter Details Date Type Department Care Team ([facility] st Contact Info) Description 10/29/2024 Telephone [facility] 10 [place], [place] [id number] Unknown, Unknown, Social History Tobacco Use Types [...] AM EST Appointment [facility] 30 [place] [address] Westley Katz MD [address] [place] [address] 09/05/2025 9:30 AM EST Office Visit [facility] 10 [place] [address] Westley Katz MD [address] [place] [address] 09/09/2025 11:00 AM EST Office Visit [facility] [address] [place] [address] 3rd Floor, [address] [place] [address] Bo Castro DO [address] [place] [address] documented as of this encounter Visit Diagnoses Not on filedocumented in this encounter Care Teams Import Manager Relationship Specialty Start Date End Date Nolan Gee MD [address] [place] [address] PCP - General Internal Medicine 11/01/23 documented as of this encounter Additional Source Comments The information contained in this document represents components of the legal health record. It is not the complete legal health record.[facility]
--- OUTSIDE RECORDS SUMMARY | 2025-06-18 09:14 | XMS_ITS | Encounter Summary ---
Author Organization [facility] Address [address] [place] [address] [place] [address] Phone Care Team Providers Care Packing And Shipping Clerk Name Role Phone Nolan Gee MD Primary Care Provider [phone] Reason for Referral * MRI/CAT Scan - New Request Specialty Diagnoses / Procedures Referred By Contac t Referred To Contact Radiology Diagnoses Atherosclerosis of stebbins coronary artery of stebbins heart without angina pectoris Procedures NC Myocardial Perfusion Exercise Multiple NC Myocardial Perfusion Pharmacologic Stress Multiple Nolan Gee MD 238 [place] [address] Phone: tel: fax: mailto:[email or web address] Referral ID Status Reason Start Date Expiration Date V isits Requested Visits Authorized [id number] New Request 04/11/2025 1 1 Encounter Details Date Type Department Care Team (Late st Contact Info) Description 05/15/2025 Ancillary Orders [facility] [address] 3rd Floor, [address] [place] [address] Nolan Gee MD [address] [place], [place] [id number] [email or web address] Atherosclerosis of stebbins coronary artery of stebbins heart without angina pectoris (Primary Dx) Social History Tobacco Use Types [...] AM EST Appointment [facility] 30 [place] [address] Westley Katz MD 30 [place] [address] 09/05/2025 9:30 AM EST Office Visit [facility] 10 [facility] [place] [address] Westley Katz MD 30 [place] [address] [email or web address] 09/09/2025 11:00 AM EST Office Visit [facility] 22 [facility] 3rd Floor, [address] [place] [address] Bo Castro, [address] [facility] [address] [place] [address] documented as of this encounter Results * NC Myocardial Perfusion Exercise Multiple (05/15/2025 [...] in SPECT format, reconstructed tomographically and compared [id number] in short axis, horizontal long axis and [...] ischemia. Normal LV size and function. us Nolan Gee MD CV NM CARDIAC Final Result documented in this encounter Visit Diagnoses Diagnosis Atherosclerosis of stebbins coronary artery of stebbins heart without angina pectoris- Primary Atherosclerosis of stebbins coronary artery of stebbins heart without angina pectoris- Primary documented in this encounter Care Teams Packing And Shipping Clerk Relationship Specialty Start Date End Date Nolan Gee MD [address] [place] [address] [email or web address] PCP - General Internal Medicine 11/01/23 documented as of this encounter Additional Source Comments The information contained in this document represents components of the legal health record. It is not the complete legal health record.[facility]
--- OUTSIDE RECORDS SUMMARY | 2025-06-18 09:14 | XMS_ITS | Encounter Summary ---
Author Organization [facility] Address [address] [place] [address] Phone Care Team Providers Care Commodities Clerk Name Role Phone Nolan Gee MD Primary Care Provider [phone] Nolan Gee MD Primary Care Provider [phone] Reason for Referral * MRI/CAT Scan - Closed Specialty Diagnoses / Procedures Referred By Contac t Referred To Contact Radiology Diagnoses Arthralgia of both hands Procedures MRI Hand (Left) Paloma Vicente MD Phone: tel: fax: Referral ID Status Reason Start Date Expiration Date Visits Re quested Visits Authorized [id number] Closed 02/25/2022 02/25/2023 1 1 Encounter Details Date Type Department Care Team (Latest Contact Info) Description 02/25/2022 Transcribe Orders Virtual Department 30 [place] [address] Paloma Vicente MD [address] [place] [address] Arthralgia of both hands (Primary Dx) Social [...] AM EST Appointment [facility] 30 [place] [address] Westley Katz MD [address] [place] [address] 09/05/2025 9:30 AM EST Office Visit [facility] 10 [facility] [place] [address] Westley Katz MD [address] [place] [address] 09/09/2025 11:00 AM EST Office Visit [facility] [address] [place] [address] 3rd Floor, [address] [place] [address] Bo Castro DO [address] [place] [address] [email or web address] Scheduled Orders Name Type Priority Associated Diagnoses Orde r Schedule MRI Hand (Left) Imaging Routine Arthralgia of both hands Expected: 02/25/2022, Expires: 05/28/2022 documented as of this encounter Visit Diagnoses Diagnosis Arthralgia of both hands- Primary documented in this encounter Care Teams Commodities Clerk Relationship Specialty Start Date End Date Nolan Gee MD PCP - General Internal Medicine 12/11/17 10/31/23 Nolan Gee MD 238 [place] [address] [email or web address] PCP - General Internal Medicine 11/01/23 documented as of this encounter Additional Source Comments The information contained in this document represents components of the legal health record. It is not the complete legal health record.[facility]
--- OUTSIDE RECORDS SUMMARY | 2025-06-18 09:14 | XMS_ITS | Encounter Summary ---
Author Organization [facility] Address [address] [place] [address] Phone Care Team Providers Care Sous Chef Name Role Phone Nolan Gee MD Primary Care Provider [phone] Nolan Gee MD Primary Care Provider [phone] Encounter Details Date Type Department Care Team (Late st Contact Info) Description 11/26/2020 Procedure Pass [facility] Endoscopy Admitting Dept Virtual Department 30 [place] [address] Social History Tobacco Use Types Packs/Day Years [...] AM EST Appointment [facility] 30 [place] [address] Westley Katz MD 30 [place] [address] 09/05/2025 9:30 AM EST Office Visit [facility] [address] [place] [address] Westley Katz MD 30 [place] [address] 09/09/2025 11:00 AM EST Office Visit [facility] 22 [facility] 3rd Floor, [address] [place] [address] Bo Castro DO 22 [facility] [address] [place] [address] documented as of this encounter Visit Diagnoses Not on filedocumented in this encounter Care Teams Sous Chef Relationship Specialty Start Date End Date Nolan Gee MD PCP - General Internal Medicine 12/11/17 10/31/23 Nolan Gee MD [address] [place] [address] PCP - General Internal Medicine 11/01/23 documented as of this encounter Additional Source Comments The information contained in this document represents components of the legal health record. It is not the complete legal health record.[facility]
== END 2025-06-18 09:20 | disposition home or self-care (01) ==
LOC: HO.HOS 08:49
PROVIDERS: PCP Internal Medicine; Visit Provider Orthopaedic Surgery
DX: M25.561 Pain in right knee (principal); M25.562 Pain in left knee; M17.0 Bilateral primary osteoarthritis of knee
CPT/HCPCS: 99213; G2211

== ENCOUNTER → 2025-06-18 08:56 | Outpatient (BNV) | payer MEDICARE, MEDICAID, SELFPAY | PROVIDERS: Visit Provider Radiology Diagnostic Radiology | DX: M25.552 Pain in left hip (principal); Z96.642 Presence of left artificial hip joint | CPT/HCPCS: 73502 ==